=== PATIENT | female | born 1940 | race Caucasian/White ===

== ENCOUNTER → 2018-03-31 10:19 | Outpatient (CLI) | payer MEDICARE, SELFPAY ==
[2018-03-31 12:00] LABS: Absolute Lymphocyte Count 1.44 X10^3/ul (0.83-4.51); Absolute Neutrophil Count 2.7 X10^3/uL (2.0-7.7); Basophil# 0.02 X10^3/uL; Basophil% 0.4 % (0-1); Eosinophil# 0.04 X10^3/uL; Eosinophils% 0.9 % (0-5); Hematocrit 38.5 % (37-47); Hemoglobin 13.1 g/dl (12.0-15.0); Lymphocyte # 1.44 X10^3/ul (4.0); Lymphocyte % 31.3 % (19-41); Mean Corpuscular Hgb 32.7 pg (27.0-32.0); Mean Platelet Vol. 11.2 fl (6.2-12.0); Monocyte# 0.37 X10^3/uL; Neutrophil # 2.73 X10^3/uL (2.7-7.7); Neutrophil % 59.4 % (47-70); POSITIVE COUNT NO; POSITIVE DIFFERENTIAL NO; POSITIVE MORPHOLOGY NO; Platelet Count 228 K/mm3 (150-450); RBC Distribution Width SD 41.3 fl (35.1-43.9); Red Blood Count 4.01 M/mm3 (4.2-5.4); White Blood Count 4.6 K/mm3 (4.4-11.0)
[2018-03-31 12:16] LABS: Anion Gap 7 (5-15); BUN 14 mg/dL (7-18); BUN/Creat Ratio 16.2 RATIO (10-20); Calcium,Total 9.1 mg/dL (8.5-10.1); Chloride 106 mmol/L (98-107); Creatinine, Serum 0.87 mg/dL (0.55-1.02); EST Glomerular Filtration Rate 67 mL/min (>60); Est Glom Filt Rate - Afr Amer 82 mL/min (>60); Glucose 111 mg/dL (74-106); Magnesium 2.1 mg/dL (1.6-2.6); Potassium 3.8 mmol/L (3.5-5.1); Sodium Level 143 mmol/L (136-145)
[2018-03-31 22:38] LABS: Thyroid Stim Hormone (TSH) 3.75 uIU/mL (0.358-3.74)
== END ==
PROVIDERS: Family Provider Family Medicine; PCP Family Medicine; Visit Provider Family Medicine
DX: R25.2 Cramp and spasm (principal); E11.9 Type 2 diabetes mellitus without complications
CPT/HCPCS: 36415; 80048; 83735; 84443; 85025

== ENCOUNTER → 2018-12-08 17:16 | Outpatient (CLI) | payer MEDICARE, SELFPAY ==
--- NOTE | 2018-12-08 17:22 | RAD_ITS ---
STUDY: X-RAY - LUMBAR SPINE REASON FOR EXAM: Female, 78 years old. Pain TECHNIQUE: 5 view(s) of the lumbar spine were obtained. COMPARISON: None FINDINGS: Normal lumbar lordosis. There is no substantial scoliosis. There is a normal alignment of the vertebrae. Normal vertebral bodies. Mild spurring at the endplates. Normal disc space heights. The soft tissue structures are unremarkable. Calcified aorta. RAD/L/S Spine Min 4 Views IMPRESSION: Mild degenerative changes of the lumbar spine. Electronically Signed: German Smith DO at 18:50 EDT Tel [phone], Service support ,
--- NOTE | 2018-12-08 17:22 | RAD_ITS ---
STUDY: X-RAY - RIGHT KNEE REASON FOR EXAM: Female, 78 years old. Pain TECHNIQUE: 4 view(s) of the knee. COMPARISON: None. FINDINGS: Normal visualized distal femur. Normal visualized proximal tibia and fibula. Normal proximal tibiofibular articulation. Normal medial femorotibial compartment. Normal lateral femorotibial compartment. Normal patellofemoral articulation. The soft tissue structures are unremarkable. RAD/Knee 4 or More Views IMPRESSION: No acute bony injury of the knee. Electronically Signed: German Smith DO at 21:01 EDT Tel [phone], Service support ,
== END ==
PROVIDERS: Family Provider Family Medicine; PCP Family Medicine; Referring Provider Family Medicine; Visit Provider Family Medicine
DX: M54.31 Sciatica, right side (principal); M25.561 Pain in right knee
CPT/HCPCS: 72110; 73564

== ENCOUNTER → 2018-12-22 12:23 | Outpatient (CLI) | payer MEDICARE, SELFPAY ==
--- NOTE | 2018-12-22 12:28 | BD_ITS ---
STUDY: DUAL ENERGY X-RAY ABSORPTIOMETRY / DXA REASON FOR EXAM: Female, 78 years old. Early menopause. Loss of height. TECHNIQUE: Bone Mineral Density (BMD) measurements of lumbar spine and bilateral hips were obtained. COMPARISON: None. FINDINGS: Lumbar Spine (L1-L4): g/cm2 (0.988) / T-score (-1.5) / Z-score (0.3) Findings are suggestive of osteopenia with a low fracture risk. Left Femur Total: g/cm2 (0.822) / T-score (-1.5) / Z-score (0.4) Left Femoral Neck: g/cm2 (0.726) / T-score (-2.2) / Z-score (-0.2) Right Femur Total: g/cm2 (0.746) / T-score (-2.1) / Z-score (-0.2) Right Femoral Neck: g/cm2 (0.663) / T-score (-2.7) / Z-score (-0.7) BD/Dexa Bone Density Study IMPRESSION: The patient is considered osteoporotic as outlined below according to World Carlos Organization (WHO) criteria with a high fracture risk. Reference Information: The T-score is the number of standard deviations above or below the standard which is normal for young adults at their peak bone mineral density. The World Health Organization (WHO) interprets the T-scores as follows: Above -1 Normal bone density Between -1 and -2.5 Osteopenia Equal to / or below -2.5 Osteoporosis As a practical clinical guideline, osteopenia may be graded as follows: Mild -1 through -1.5 Moderate -1.6 through -2.0 Severe -2.1 through -2.4 The Z-score is the number of standard deviations above or below age-matched controls. A Z-score of less than -1.5 would be considered abnormal. References: 1. NIH Osteoporosis and Related Bone Diseases http://www.osteo.org 2. International Society for Clinical Densitometry http://www.iscd.org 3. National Osteoporosis Foundation http://www.nof.org Electronically Signed: Osei Burr, at 14:29 EDT , Service support ,
== END ==
PROVIDERS: Family Provider Family Medicine; PCP Family Medicine; Referring Provider Family Medicine; Visit Provider Family Medicine
DX: M81.0 Age-related osteoporosis without current pathological fracture (principal)
CPT/HCPCS: 77080

== ENCOUNTER → 2019-01-29 15:00 | Outpatient (CLI) | payer MEDICARE, SELFPAY ==
--- NOTE | 2019-01-29 15:06 | CT_ITS ---
STUDY: CT ABDOMEN AND PELVIS WITH CONTRAST REASON FOR EXAM: Female, 78 years old. RADIATION DOSAGE (If Supplied By Facility): CTDIvol = ( 12.86 ) mGy, DLP = ( 781.59 ) mGycm TECHNIQUE: Transaxial images were obtained from the dome of the diaphragm to the symphysis pubis without oral contrast. 100 IV Isovue 300 was administered. Sagittal and coronal images were reconstructed. Individualized dose optimization techniques were used for this CT. COMPARISON: None. FINDINGS: The liver is not enlarged with fatty infiltration when compared to the spleen. There is fat sparing in the right lobe. No focal lesion or abnormal enhancement identified. The spleen is not enlarged. The suprarenal glands are unremarkable so is the pancreas. Both kidneys are normal in size, shape and position but there is fullness of the left collecting system. There are few diverticula seen in the sigmoid however there is a thickening of the wall of the sigmoid that mandates direct visualization for better assessment. There is no evidence of periaortic lymphadenopathy seen. Atherosclerotic changes noted in the abdominal aorta and iliac vessels. In the pelvis the uterus is rather small in size with calcification. The visualized bony structures are intact. CT/Abdomen/Pelvis W IV Cont ONLY IMPRESSION: Fatty infiltration of the liver with fat sparing area in the center of the right lobe. Fullness of the collecting system on the left. Sigmoid diverticulosis Thickening of the wall of the proximal sigmoid that mandates direct visualization for better assessment. Electronically Signed: Andrzej Ayoub, at 16:13 EDT Tel , Service support ,
== END ==
PROVIDERS: Family Provider Family Medicine; PCP Family Medicine; Referring Provider Family Medicine; Visit Provider Family Medicine
DX: R10.32 Left lower quadrant pain (principal)
CPT/HCPCS: 74177; Q9967

== ENCOUNTER → 2019-02-01 09:59 | Outpatient (CLI) | payer MEDICARE, SELFPAY ==
[2019-02-01 09:24] VITALS: BMI 25.0
--- NOTE | 2019-02-01 10:09 | CT_ITS ---
STUDY: CT ABDOMEN AND PELVIS WITH CONTRAST REASON FOR EXAM: Female, 78 years old. RADIATION DOSAGE (If Supplied By Facility): CTDIvol = ( 9.27 ) mGy, DLP = ( 496.03 ) mGycm TECHNIQUE: Transaxial images were obtained from the dome of the diaphragm to the symphysis pubis without oral contrast. 100 IV/Oral Isovue 370 was administered. Sagittal and coronal images were reconstructed. Individualized dose optimization techniques were used for this CT. COMPARISON: January 29, 2019. FINDINGS: The previously described thickening of the sigmoid with diverticulosis again noted the with some enhancement that could be due to diverticulitis with some fat stranding in the region however probably patient needs colonoscopy in the future for better evaluation. As mentioned in the previous examination there is fatty infiltration of the liver with fat sparing area in the right lobe. The spleen is not enlarged with no focal lesion. The suprarenal glands and both kidneys are unremarkable except for fullness of the left renal pelvis . No periaortic lymphadenopathy seen in the pancreas and gallbladder are unremarkable. No free fluid or air or free air within the peritoneal cavity. Coronal CT/Abdomen/Pelvis WITH Contrast IMPRESSION: Thickening of the sigmoid with evidence of diverticulosis and possibility of diverticulitis cannot be ruled out. Also possibility of tumor cannot be excluded needs direct visualization Electronically Signed: Andrzej Ayoub, at 13:50 EDT Tel , Service support ,
[2019-02-01 11:21] LABS: Absolute Lymphocyte Count 0.48 X10^3/ul (0.83-4.51); Absolute Neutrophil Count 4.5 X10^3/uL (2.0-7.7); Basophil# 0.01 X10^3/uL; Basophil% 0.2 % (0-1); Eosinophil# 0.01 X10^3/uL; Eosinophils% 0.2 % (0-5); Hematocrit 37.7 % (37-47); Hemoglobin 13.1 g/dl (12.0-15.0); Lymphocyte # 0.48 X10^3/ul (4.0); Lymphocyte % 9.1 % (19-41); Mean Corp Hgb Conc 34.7 g/gl (32-36); Mean Platelet Vol. 10.3 fl (6.2-12.0); Monocyte# 0.33 X10^3/uL; Monocyte% 6.2 % (0-10); Neutrophil # 4.45 X10^3/uL (2.7-7.7); Neutrophil % 84.1 % (47-70); Platelet Count 243 K/mm3 (150-450); RBC Distribution Width CV 11.8 % (11.6-14.6); RBC Distribution Width SD 38.8 fl (35.1-43.9); White Blood Count 5.3 K/mm3 (4.4-11.0)
[2019-02-01 11:23] LABS: Differential Indicated SCAN CRITERIA MET; POSITIVE COUNT NO; POSITIVE DIFFERENTIAL YES; POSITIVE MORPHOLOGY NO
[2019-02-01] MEDS: 0.9% Normal Saline 1,000 ML 125 ML IV (11:27)
[2019-02-01 11:28] VITALS: BP 141/76; PULSE 90; RESP 14; O2SAT 93; BMI 24.2
[2019-02-01 11:29] LABS: Anion Gap 9 (5-15); BUN 13 mg/dL (7-18); BUN/Creat Ratio 10.4 RATIO (10-20); Calcium,Total 8.9 mg/dL (8.5-10.1); Chloride 100 mmol/L (98-107); Creatinine, Serum 1.25 mg/dL (0.55-1.02); EST Glomerular Filtration Rate 44 mL/min (>60); Est Glom Filt Rate - Afr Amer 53 mL/min (>60); Glucose 349 mg/dL (74-106); Potassium 3.7 mmol/L (3.5-5.1); Sodium Level 134 mmol/L (136-145)
== END ==
PROVIDERS: Family Provider Family Medicine; PCP Family Medicine; Referring Provider Family Medicine; Visit Provider Family Medicine
DX: K57.90 Diverticulosis of intestine, part unspecified, without perforation or abscess without bleeding (principal)
CPT/HCPCS: 74177; 80048; 83735; 85025; J7030; Q9967; A4216

== ENCOUNTER 2019-03-08 08:06 | Day surgery (SDC) | payer MEDICARE, SELFPAY ==
[2019-02-24 08:18] VITALS: BMI 24.2
--- NOTE | 2019-02-24 08:23 | HP_ITS ---
Intake Vital Signs 02/24/19 Body Mass Index (BMI) 24.2 02/19/19 Body Mass Index (BMI) 24.2 Intake Visit Reasons: diverticulitis f/u schedule cscope Chief Complaint: CT WITH LABS/IVF Allergies niacin Allergy (Unknown, Verified 02/23/19 10:45) Unknown pneumococcal vaccine [From Pneumovax 23] Allergy (Verified 02/23/19 10:45) Unknown [facility] Medical History Acid reflux (Acute) Blood in stool (Acute) Diarrhea (Acute) Nausea (Acute) Abdominal pain (Acute) SOB (shortness of breath) (Acute) Anxiety (Acute) Depression (Acute) Arthritis (Acute) Fatigue (Acute) Surgical History Hx of tonsillectomy (Acute) Hx of tubal ligation (Acute) Hx of cataract surgery (Acute) Family History Sister Diabetes Father Prostate cancer Social History (Updated 02/24/19 @ 08:23 by Latisha Sanchez MD) Smoking Status: Never smoker second hand exposure: No alcohol intake: never substance use type: does not use caffeine: Yes what type of physical activity do you participate in: none frequency: does not exercise seatbelt use: always HPI HPI HPI: ROWAN CANAS, is a 79 F who presents to the office today for HPI HPI Surgical H&P: Yes HPI: ROWAN CANAS, is a 79 F who presents to the office today for follow-up from her diverticulitis. Patient states she has no left lower quadrant pain she states she can get uncomfortable but that improves after having a bowel movement. Patient does state that she has smaller caliber stools which are soft more recently. Patient did complete her 10 days of Cipro and Flagyl. Patient states she is tolerating p.o. well denies any nausea or vomiting. However patient does states she has reflux which does go up to the esophagus daily she does not take any medication for this. Patient has never had a colonoscopy and no family history of colon cancer. Patient's previous CT abdomen pelvis was concern for her that it could be more than just diverticulitis going on in the sigmoid colon recommended a direct visualization. Pt did admit to a spot of blood on TP on friday but denies any further blood per rectum. ROS General General: Yes appetite; no fatigue Gastro Gastrointestinal: No abdominal pain, No nausea or vomiting, Yes blood in stool, Yes acid reflux, No hemorrhoids Exam Const General: cooperative, comfortable, no acute distress Resp Effort & Inspection: normal respiratory effort Cardio Rate: regular rate GI Inspection: non-distended Palpation: soft, no guarding, nontender Psych Affect: normal affect Assessment & Plan Problems 1. Diverticulitis K57.92 2. Change in stool caliber R19.5 Plan I have discussed the above with the patient. Also discussed with patient that if there is a stricture at the sigmoid I am unable to pass it would not be able to complete the scope and would withdraw the scope. I have offered the patient colonoscopy for evaluation. I have explained the risks/benefits of the procedure and described the procedure. I have discussed the risks with the patient, including but not limited to: infection, bleeding, perforation of the GI tract requiring emergency surgery, inability to complete the procedure, injury to any internal organs, complications of anesthesia, etc. - the patient understands and agrees to proceed. I have answered all the patient's questions to the patient's satisfaction and the patient has no further questions. The patient has been given instructions for the colon cleansing preparation. 2 days of clears, MiraLAX Dulcolax split prep. Latisha Sanchez M.D. Pager: [phone] [facility] [address] [place] [address], [address] [place] [address] Office: [phone] Plan Detail Follow Up We will schedule colonoscopy Coding Level of Care Code Off vis,est,level 3 Diagnoses Diverticulitis K57.92 Change in stool caliber R19.5 02/24/19 0823 <Electronically signed by Latisha Amaya am, MD> Date _ Latisha Sanchez MD I have examined the patient the following changes are noted: Patient denies any pain in the left side of her abdomen, patient states prep went well and was clear liquid stool. Patient does state some tenderness if palpated on the left side but denies pain. Patient rates that tenderness as 2/10 when palpated but denies any pain if the abdomen is not palpated.
[2019-03-08] VITALS (7 sets, daily range): BP systolic 162–189; BP diastolic 80–92; PULSE 62–69; RESP 15–18; TEMP 36–36.4; O2SAT 98–100; BMI 23.6
--- NOTE | 2019-03-08 | COLBX_PTH ---
PATIENT: ROWAN CANAS LOC: EN U#:[id number] AGE/SX: 79/F ROOM: RE03/08/[address]: Dr. Latisha Sanchez MD : 1940 BED: DIS: 03/08/2019 SPEC #: [id number] RECD: 03/08/19 13:30 STATUS: LES SANA #: [id number] VALERIE: 03/08/19 00:[address]: Latisha Sanchez DEPT: SURGICAL PATHOLOGY RECD BY: Enrique Esparza ENTERED: 03/08/19 13:31 SP TYPE: COLON BX OTHR DR: Dr. Silvestre Jeong MD Tissues: A - Ascending colon B - Ascending colon C - Transverse colon D - Descending colon E - Sigmoid colon biopsy F - Sigmoid colon biopsy G - Rectum, NOS H - Rectum, NOS Procedures: Surgery Specimen Level IV HEADER OPERATION: Colonoscopy (MAC) PRE-OP DIAGNOSIS: Diverticulitis, change in stool TISSUE SUBMITTED: A - Biopsy of ascending colon erosion, B - Biopsy of distal ascending polyp, C - Biopsy of transverse erosion, D - Biopsy of descending erosion, E - Biopsy of sigmoid polyp, F - Erosion area of sigmoid, G - Biopsy of rectum polyp, H - Biopsy of rectal erosion MICROSCOPIC DIAGNOSIS A. Ascending colon erosion, biopsy: Focal acute colitis. See microscopic description and comment. B. Distal ascending polyp, biopsy: Focal acute colitis. See microscopic description and comment. C. Transverse colon erosion, biopsy: Focal acute colitis. See microscopic description and comment. D. Descending colon erosion, biopsy: Focal acute colitis. See microscopic description and comment. E. Sigmoid polyp, biopsy: Hyperplastic polyp. F. Erosion area sigmoid colon, biopsy: Focal acute colitis. See microscopic description and comment. G. Rectum polyp, biopsy: Fragments of hyperplastic polyp. H. Rectal erosion, biopsy: Focal acute colitis. See microscopic description and comment. SJ:pennie 03/09/19 COMMENT Finding of focal acute colitis can be associated with self-limited colitis, infectious colitis, or rarely inflammatory bowel disease. Correlation with clinical, endoscopic findings and appropriate follow up are necessary. MICROSCOPIC DESCRIPTION Slides are reviewed. A, C, D & H - Specimens show similar morphologic features. Specimens show fragments of colonic mucosa with acute and chronic inflammatory cells infiltrates in the lamina propria, cryptitis and crypt abscesses. Glandular distortion or granulomas are not seen. Specimen D also shows superficial erosion. B - The specimen shows fragments of colonic mucosa with acute and chronic inflammatory cells infiltrates in the lamina propria and cryptitis. Crypt abscesses, glandular distortion or granuloma are not seen. F - The specimen shows a fragment of colonic mucosa with superficial erosion, associated acute inflammation, acute and chronic inflammatory cell infiltrate in the lamina propria. Cryptitis, crypt abscesses, glandular distortion or granuloma are not seen. GROSS DESCRIPTION A - Received in fixative is one container labeled with the patient's name and designated ascending colon biopsy. The specimen consists of one irregular fragment of light stallings soft tissue that measures 0.4 x 0.4 x 0.1 cm. The specimen is totally submitted in one cassette. B - Received in fixative is one container labeled with the patient's name and designated biopsy of distal ascending polyp. The specimen consists of multiple irregular fragments of light stallings soft tissue that in aggregate measure 1 x 1 x 0.1 cm. The specimen is totally submitted in one cassette. C - Received in fixative is one container labeled with the patient's name and designated transverse erosion biopsy. The specimen consists of one irregular fragment of light stallings soft tissue that measures 0.4 x 0.3 x 0.1 cm. The specimen is totally submitted in one cassette. D - Received in fixative is one container labeled with the patient's name and designated descending erosion biopsy. The specimen consists of one irregular fragment of light stallings soft tissue that measures 0.3 x 0.3 x 0.1 cm. The specimen is totally submitted in one cassette. E - Received in fixative is one container labeled with the patient's name and designated biopsy of sigmoid polyp. The specimen consists of one irregular fragment of light stallings soft tissue that measures 0.4 x 0.3 x 0.1 cm. The specimen is totally submitted in one cassette. F - Received in fixative is one container labeled with the patient's name and designated erosion area of sigmoid. The specimen consists of one irregular fragment of light stallings soft tissue that measures 0.5 x 0.3 x 0.1 cm. The specimen is totally submitted in one cassette. G - Received in fixative is one container labeled with the patient's name and designated biopsy of rectum polyp. The specimen consists of multiple irregular fragments of light stallings soft tissue that in aggregate measure 1 x 0.3 x 0.1 cm. The specimen is totally submitted in one cassette. H - Received in fixative is one container labeled with the patient's name and designated biopsy of rectal erosion. The specimen consists of one irregular fragment of light stallings soft tissue that measures 0.4 x 0.3 x 0.1 cm. The specimen is totally submitted in one cassette. / HINA:elton 03/08/19 TC: 2 CPT: 77668 x8
[2019-03-08 08:46] LABS: Bedside Glucose 148 mg/dL (70-110)
--- NOTE | 2019-03-08 09:45 | OP.ENDO_ITS ---
03/08/2019 Silvestre Jeong Re : Colonoscopy procedure for Petra Del Valle Dear Jean-Paul This procedure was performed on Friday, March 08, 2019. My impressions and recommendations are as follows: Impressions : - Diverticulosis in the sigmoid colon. - Small mucosal ulcerations-worse in left colon. Biopsied. - Three less than 5 mm polyps in the rectum, in the sigmoid colon and in the distal ascending colon, removed with a cold biopsy forceps. Resected and retrieved. Recommendations : - Discharge patient to home. - Resume previous diet. - Continue present medications. - Await pathology results. - Repeat colonoscopy is not recommended due to current age (66 years or older) for screening purposes. My findings are described in the full procedure note, which is enclosed. If I can be of further assistance, please feel free to contact me at Doctor phone number(s): , Work: . Sincerely, MD Latisha Carrion MD 03/08/2019 9:45:16 AM This report has been signed electronically.
== END 2019-03-08 10:43 | disposition home or self-care (01) ==
LOC: EN 08:07 → AC 08:08
PROVIDERS: Family Provider Family Medicine; PCP Family Medicine; Referring Provider Surgery; Visit Provider Surgery
PROC: 0DJD8ZZ Inspection of Lower Intestinal Tract, Via Natural or Artificial Opening Endoscopic (ICD-10-PCS; CPT 45378; principal; 2019-03-08 09:10)
DX: K57.32 Diverticulitis of large intestine without perforation or abscess without bleeding (principal); K62.89 Other specified diseases of anus and rectum; R19.5 Other fecal abnormalities; K21.9 Gastro-esophageal reflux disease without esophagitis; K63.3 Ulcer of intestine; K62.1 Rectal polyp; D12.5 Benign neoplasm of sigmoid colon; D12.2 Benign neoplasm of ascending colon; K57.30 Diverticulosis of large intestine without perforation or abscess without bleeding; R93.3 Abnormal findings on diagnostic imaging of other parts of digestive tract; E11.9 Type 2 diabetes mellitus without complications
CPT/HCPCS: 45380; 82962; 88305; J7120

== ENCOUNTER → 2019-03-10 14:28 | Outpatient (CLI) | payer MEDICARE, SELFPAY ==
[2019-03-08 08:25] VITALS: BMI 23.6
== END ==
PROVIDERS: Family Provider Family Medicine; PCP Family Medicine; Referring Provider Surgery; Visit Provider Surgery
DX: R19.7 Diarrhea, unspecified (principal); Z87.19 Personal history of other diseases of the digestive system
CPT/HCPCS: 83630; 87493

== ENCOUNTER → 2019-07-06 10:56 | Outpatient (CLI) | payer MEDICARE, SELFPAY ==
[2019-03-22 09:29] VITALS: BMI 23.6
[2019-07-06 13:07] LABS: Anion Gap 8 (5-15); BUN 12 mg/dL (7-18); BUN/Creat Ratio 11.1 RATIO (10-20); Calcium,Total 8.7 mg/dL (8.5-10.1); Chloride 106 mmol/L (98-107); Creatinine, Serum 1.08 mg/dL (0.55-1.02); EST Glomerular Filtration Rate 52 mL/min (>60); Est Glom Filt Rate - Afr Amer 63 mL/min (>60); Glucose 265 mg/dL (74-106); Potassium 3.9 mmol/L (3.5-5.1); Sodium Level 140 mmol/L (136-145)
== END ==
PROVIDERS: Family Provider Family Medicine; PCP Family Medicine; Visit Provider Family Medicine
DX: E11.9 Type 2 diabetes mellitus without complications (principal)
CPT/HCPCS: 36415; 80048

== ENCOUNTER → 2022-10-15 | Outpatient (CLI) | payer MEDICARE, SELFPAY ==
[2022-10-15 10:18] LABS: Absolute Lymphocyte Count 2.01 X10^3/uL (0.83-4.51); Absolute Neutrophil Count 3.4 X10^3/uL (2.0-7.7); Basophil# 0.04 X10^3/uL; Basophil% 0.7 % (0-1); Eosinophil# 0.09 X10^3/uL; Eosinophils% 1.5 % (0-5); Hemoglobin 14.5 g/dL (12.0-15.0); Lymphocyte # 2.01 X10^3/ul (0.83-4.51); Lymphocyte % 34.1 % (19-41); Mean Corp Hgb Conc 34.5 g/dL (32-36); Mean Corpuscular Hgb 32.5 pg (27.0-32.0); Mean Corpuscular Volume 94.2 fL (81-99); Mean Platelet Vol. 11.2 fl (6.2-12.0); Monocyte# 0.39 X10^3/uL; Monocyte% 6.6 % (0-10); NRBC Flagged by Analyzer 0 % (0-5); Neutrophil # 3.36 X10^3/uL (2.7-7.7); Neutrophil % 56.9 % (47-70); Platelet Count 228 K/mm3 (150-450); RBC Distribution Width CV 12.3 % (11.6-14.6); RBC Distribution Width SD 42.9 fl (35.1-43.9); Red Blood Count 4.46 M/mm3 (4.2-5.4); White Blood Count 5.9 K/mm3 (4.4-11.0)
[2022-10-15 10:44] LABS: Vitamin D,25 Hydroxy 26.1 ng/mL
[2022-10-15 10:55] LABS: AST(SGOT) 15 U/L (15-37); Alanine Aminotransfer ALT/SGPT 24 U/L (13-56); Albumin, Serum 3.6 g/dL (3.2-5.0); Alkaline Phosphatase 124 U/L (45-117); Anion Gap 8 (5-15); BUN 16 mg/dL (7-18); BUN/Creat Ratio 18.6 RATIO (10-20); Calcium,Total 9.1 mg/dL (8.5-10.1); Chloride 103 mmol/L (98-107); Cholesterol 264 mg/dL (200); Creatinine, Serum 0.86 mg/dL (0.55-1.02); EST Glomerular Filtration Rate 67 mL/min (>60); Est Glom Filt Rate - Afr Amer 81 mL/min (>60); Globulin 3.5 g/dL (2.2-4.2); Glucose 284 mg/dL (74-106); High Density Lipoprotein 81 mg/dL; Protein, Total 7.1 g/dL (6.4-8.2); Sodium Level 138 mmol/L (136-145); Thyroid Stim Hormone (TSH) 5.44 uIU/mL (0.358-3.74); Triglycerides 164 mg/dL; Very Low Density Lipoprotein 33 mg/dL (5-40)
== END | disposition home or self-care (01) ==
LOC: LAB 09:53
PROVIDERS: PCP Internal Medicine; Referring Provider Internal Medicine; Visit Provider Internal Medicine
DX: R53.83 Other fatigue (principal); E11.9 Type 2 diabetes mellitus without complications; F41.9 Anxiety disorder, unspecified; F32.9 Major depressive disorder, single episode, unspecified; M19.90 Unspecified osteoarthritis, unspecified site; Z13.220 Encounter for screening for lipoid disorders; E55.9 Vitamin D deficiency, unspecified
CPT/HCPCS: 80053; 80061; 82306; 83036; 84443; 85025

== ENCOUNTER → 2023-08-13 | Outpatient (CLI) | payer MEDICARE, SELFPAY ==
[2023-08-13 11:18] LABS: Absolute Lymphocyte Count 1.45 X10^3/uL (0.83-4.51); Absolute Neutrophil Count 3.3 X10^3/uL (2.0-7.7); Basophil# 0.04 X10^3/uL; Basophil% 0.8 % (0-1); Eosinophil# 0.05 X10^3/uL; Hemoglobin 13.7 g/dL (12.0-15.0); Lymphocyte # 1.45 X10^3/ul (0.83-4.51); Lymphocyte % 27.7 % (19-41); Mean Corp Hgb Conc 33.4 g/dL (32-36); Mean Corpuscular Hgb 32.1 pg (27.0-32.0); Mean Platelet Vol. 10.4 fl (6.2-12.0); Monocyte# 0.36 X10^3/uL; Monocyte% 6.9 % (0-10); NRBC Flagged by Analyzer 0 % (0-5); Neutrophil # 3.31 X10^3/uL (2.7-7.7); Neutrophil % 63.2 % (47-70); Platelet Count 263 K/mm3 (150-450); RBC Distribution Width CV 12.2 % (11.6-14.6); RBC Distribution Width SD 42.9 fl (35.1-43.9); Red Blood Count 4.27 M/mm3 (4.2-5.4); White Blood Count 5.2 K/mm3 (4.4-11.0)
[2023-08-13 11:50] LABS: Vitamin D,25 Hydroxy 44.6 ng/mL
[2023-08-13 12:00] LABS: ALB/GLOB Ratio 1.1 RATIO (0.9-2.4); AST(SGOT) 19 U/L (15-37); Alanine Aminotransfer ALT/SGPT 23 U/L (13-56); Albumin, Serum 3.8 g/dL (3.2-5.0); Alkaline Phosphatase 96 U/L (45-117); Anion Gap 8 (5-15); BUN 16 mg/dL (7-18); BUN/Creat Ratio 19.3 RATIO (10-20); Calcium,Total 8.7 mg/dL (8.5-10.1); Chloride 108 mmol/L (98-107); Creatinine, Serum 0.83 mg/dL (0.55-1.02); EST Glomerular Filtration Rate 70 mL/min (>60); Est Glom Filt Rate - Afr Amer 85 mL/min (>60); Free T3 2.3 pg/mL (2.18-3.98); Globulin 3.5 g/dL (2.2-4.2); Glucose 156 mg/dL (74-106); Potassium 4.1 mmol/L (3.5-5.1); Protein, Total 7.3 g/dL (6.4-8.2); Sodium Level 143 mmol/L (136-145); T4 Free Direct 0.86 ng/dL (0.76-1.46); Thyroid Stim Hormone (TSH) 3.72 uIU/mL (0.358-3.74)
== END | disposition home or self-care (01) ==
PROVIDERS: PCP Internal Medicine; Referring Provider Internal Medicine; Visit Provider Internal Medicine
DX: E11.9 Type 2 diabetes mellitus without complications (principal); R55 Syncope and collapse; R79.89 Other specified abnormal findings of blood chemistry; R53.83 Other fatigue; E55.9 Vitamin D deficiency, unspecified
CPT/HCPCS: 36415; 80053; 82306; 83036; 84439; 84443; 84481; 85025

== ENCOUNTER → 2023-08-29 | Outpatient (CLI) | payer MEDICARE, SELFPAY ==
--- NOTE | 2023-08-29 11:11 | MRI_ITS ---
STUDY: MRI BRAIN WITH AND WITHOUT CONTRAST REASON FOR EXAM: Female, 83 years old. tia, black out, LIGHT HEADEDNESS TECHNIQUE: Standardized multiplanar fat and water weighted pulse sequences were obtained. IV 13 CC CLARISCAN was administered for the contrast portion of the examination. COMPARISON: None. FINDINGS: There is mild cerebral atrophy with widening of the extra-axial spaces and ventricular dilatation. There are a limited number of small white matter hyperintensities, distributed throughout the deep white matter tracts of the cerebral hemispheres, consistent with mild chronic white matter ischemic changes. There is no evidence for recent intracranial ischemia or other cause of cytotoxic edema on diffusion weighted imaging (DWI). Normal T2* images of the brain without demonstrated susceptibility artifact. There is no demonstrated hemosiderin stain. Normal bilateral frontal poles, and orbital frontal and gyrus recti of the frontal lobes. Normal bilateral temporal tips of the temporal lobes. There are no white matter shear injuries (diffuse axonal injuries). There are no parenchymal hemorrhages or hematomas. There are no findings to suggest prior closed head parenchymal injury of the brain. No hydrocephalus or midline shift is present. No infiltrative process or vasogenic edema is seen. There are no ring-enhancing lesions or abnormal thickening or enhancement of the meninges or dura. No skull lesions are seen. Normal bilateral basal ganglia. Normal thalami. There is no extra-axial fluid accumulation. Normal flow voids within the major intracranial circulation suggesting patency by spin echo criteria. Normal venous enhancement. There is no enhancing intra-axial or extra-axial abnormality. Normal sella turcica, pituitary gland, infundibular stalk, optic chiasm and hypothalamus. Normal tectal plate and pineal gland. Normal midbrain, karan and medulla. Normal cerebellum. Normal basal cisterns. Normal bilateral temporal bones. Normal bilateral internal auditory canals. No demonstrated orbital abnormality, within the constraints of a routine brain study. Normal visualized paranasal sinuses. Normal calvarium and skull base. Normal visualized soft tissue structures. Normal visualized upper cervical spine. MRI/Brain W/WO Contrast IMPRESSION: 1. Involutional changes of the brain, as described above. 2. No hydrocephalus or midline shift is present. No infiltrative process or vasogenic edema is seen. There are no ring-enhancing lesions or abnormal thickening or enhancement of the meninges or dura. No skull lesions are seen. Electronically Signed: Jaspreet Eisenberg MD at 13:56 EST ,
--- NOTE | 2023-08-29 11:11 | MRI_ITS ---
STUDY: MRA OF THE HEAD WITHOUT CONTRAST REASON FOR EXAM: Female, 83 years old. TIA/black out TECHNIQUE: 3-D [id number] (TOF) imaging was performed with MIPs. The study was performed unenhanced. COMPARISON: MRI of the brain dated August 29, 2023 FINDINGS: Normal bilateral petrous carotid arteries. Normal right cavernous carotid artery with a normal supraclinoid bifurcation. Normal left cavernous carotid artery with a normal supraclinoid bifurcation. Normal right A1 segments of the anterior cerebral artery. Normal left A1 segments of the anterior cerebral artery. Normal intact anterior communicating artery (ACOM). Normal bilateral A2 segments of the anterior cerebral arteries. Normal right M1 and M2 segments of the middle cerebral arteries, with a normal M1 bifurcation. Normal left M1 and M2 segments of the middle cerebral arteries, with a normal M1 bifurcation. Normal right posterior communicating artery (PCOM). Normal left posterior communicating artery (PCOM). Normal bilateral vertebral arteries. Normal basilar artery with a normal basilar bifurcation. The visualized bilateral superior cerebellar (SCA) arteries are normal. Normal bilateral P1, P2 and visualized P3 segments of the posterior cerebral arteries. There is no demonstrated aneurysm of the [place] of [place]. There is no major vessel occlusion or hemodynamically significant stenosis. MRI/MRA Head ONLY without Contrast IMPRESSION: 1. There is no demonstrated aneurysm of the [place] of [place]. There is no major vessel occlusion or hemodynamically significant stenosis. Electronically Signed: Jaspreet Eisenberg MD at 14:03 EST ,
--- OUTSIDE RECORDS SUMMARY | 2023-08-29 11:25 | XMS RPT_ITS | CCD ---
Author Name Unknown Address [address] [place] [address] Organization [facility] Care Team Providers Care Condominium Manager Name Role Phone ASHER HERNÁNDEZ MD Primary Care Physician [phone] KIANA ZEPEDA, DEMETRA Attending Unavailable ASHER HERNÁNDEZ Primary Care Unavailable Allergies Allergy Classification Reported Allergen(s) Allergy Type Date of Onset Reaction(s) Facility (1 source) Niacin; Translations: [niacin] Drug Allergy [facility] Medications Current Medications Medication Drug Class(es) Dates Sig (Normalized) Sig (Original) albuterol MDI (90 mcg/inh) CFC free inhalation aerosol (1 source) Start: 08-22-2022 take 2 puff(s) by inhalation every six hours albuterol MDI (90 mcg/inh) CFC free inhalation aerosol 2 puff(s), Inhalation, q6h, # 8.5 gram(s), 0 Refill(s) Start Date: 08/22/22 Status: Ordered benzonatate 100 mg oral capsule (1 source) Non-narcotic Antitussive Start: 08-22-2022 End: 08-29-2022 Tessalon Perles 100 mg oral capsule Dose : 100 mg = 1 cap(s), Oral, TID, X 7 day(s), # 21 cap(s), 0 Refill(s), 08/29/22 20:37:00 EST Start Date: 08/22/22 Stop Date: 08/29/22 Status: Ordered Results Test Name Value Interpretation Reference Range Facil ity Vital Signs Date Time Vital Sign Value Performing Clinician Faci lity 08-22-2022 19:00-0500 Body temperature 99.68 [degF] DEMETRA BRUNO MD [facility] 08-22-2022 19:00-0500 Diastolic Blood Pressure Non-Invasive 85 1 DEMETRA BRUNO MD [facility] 08-22-2022 19:00-0500 Heart rate 89 /min DEMETRA BRUNO MD [facility] 08-22-2022 19:00-0500 Respiratory rate 16 /min DEMETRA BRUNO MD [facility] 08-22-2022 19:00-0500 Systolic Blood Pressure Non-Invasive 135 1 DEMETRA BRUNO MD [facility] Encounters Encounter Date Encounter Type Care Provider Facility Start: 08-22-2022 End: 08-22-2022 Emergency department patient visit DEMETRA BRUNO MD Facility:B Start: 08-22-2022 End: 08-22-2022 Emergency department patient visit DEMETRA BRUNO MD [facility] Payers Date Payer Category Payer Unknown [id number] 1940 Unknown [id number] Social History Date Type Detail Facility Tobacco smoking status No Smoking Status Entered [facility] Sex Assigned At Female [facility] Functional Status Date Assessment Result Facility 08-22-2022 Functional Status Independent [facility] 08-22-2022 Functional Status Room located n [facility] Hospital Discharge instructions 08-22-2022 Note Date & Type Note Facility 08-22-2022 Hospital Discharg e instructions Patient Education 08/22/2022 20:36:59 URI, Viral, No Abx (Adult) Viral Upper Respiratory Illness (Adult) You have a viral upper respiratory illness (URI), which is another term for the common cold. This illness is contagious during the first few days. It is spread through the air by coughing and sneezing. It may also be spread by direct contact (touching the sick person and then touching your own eyes, nose, or mouth). Frequent handwashing will decrease risk of spread. Most viral illnesses go away within 7 to 10 days with rest and simple home remedies. Sometimes the illness may last for several weeks. Antibiotics will not kill a virus, and they are generally not prescribed for this condition. Home care If symptoms are severe, rest at home for the first 2 to 3 days. When you resume activity, don't let yourself get too tired. Don't smoke. If you need help stopping, talk with your healthcare provider. Avoid being exposed to cigarette smoke (yours or others ). You may use acetaminophen or ibuprofen to control pain and fever, unless another medicine was prescribed. If you have chronic liver or kidney disease, have ever had a stomach ulcer or gastrointestinal bleeding, or are taking blood-thinning medicines, talk with your healthcare provider before using these medicines. Aspirin should never be given to anyone under 18 years of age who is ill with a viral infection or fever. It may cause severe liver or brain damage. Your appetite may be poor, so a light diet is fine. Stay well hydrated by drinking 6 to 8 glasses of fluids per day (water, soft drinks, juices, tea, or soup). Extra fluids will help loosen secretions in the nose and lungs. Mtea-dmm-rumixnr cold medicines will not shorten the length of time you re sick, but they may be helpful for the following symptoms: cough, sore throat, and nasal and sinus congestion. If you take prescription medicines, ask your healthcare provider or pharmacist which igqo-amw-cujdprm medicines are safe to use. (Note: Don't use decongestants if you have high blood pressure.) Follow-up care Follow up with your healthcare provider, or as advised. When to seek medical advice Call your healthcare provider right away if any of these occur: Cough with lots of colored sputum (mucus) Severe headache; face, neck, or ear pain Difficulty swallowing due to throat pain Fever of 100.4 F (38 C) or higher, or as directed by your healthcare provider Call 911 Call 911 if any of these occur: Chest pain, shortness of breath, wheezing, or difficulty breathing Coughing up blood Very severe pain with swallowing, especially if it goes along with a muffled voice [id number] [employer]. [address] [place] [address], [place] [address]. All rights reserved. This information is not intended as a substitute for professional medical care. Always follow your healthcare professional's instructions. Follow Up Care 08/22/2022 18:59:35 With:ASHER HERNÁNDEZ Address: [address] [place] [phone] Business (1) When:3-7 days Comments:Schedule appointment for follow-up if your symptoms or not improving.Push fluids.Use a vaporizer at bedside.Use Tylenol or Advil for fever and discomfort as needed.Use sqmr-sum-gdnoyjd decongestants like Sudafed or Mucinex for symptomatic relief as needed.Use Tessalon as prescribed for cough and albuterol inhaler for shortness of breath/wheezing as needed.Return to the ED if symptoms worsen. [facility] Clinical Note 08-22-2022 Note Date & Type Note Facility 08-22-2022 Note Discharge Instructions Thank you for allowing [facility] to assist you with your healthcare needs. The following is important discharge information regarding your hospital visit. Diagnosis from Today's Visit Sinus Pain/Congestion What to Do Next Instructions from Your Care Team No qualifying data available. Post Acute Orders No qualifying data available. You Need to Schedule the Following Appointments Follow Up with ASHER HERNÁNDEZ When Within 3-7 days Why: Schedule appointment for follow-up if your symptoms or not improving. Push fluids. Use a vaporizer at bedside. Use Tylenol or Advil for fever and discomfort as needed. Use apuf-tjw-dvrdrgk decongestants like Sudafed or Mucinex for symptomatic relief as needed. Use Tessalon as prescribed for cough and albuterol inhaler for shortness of breath/wheezing as needed. Return to the ED if symptoms worsen. Where: [facility] [place] [address] [phone] Business (1) Allergies niacin Medications Please ask your primary doctor or pharmacist before taking any other medication not listed, including over the counter drugs, herbal medications, vitamins and or supplements as they may interact with your home medications. What How Much When Instructions Last Dose New albuterol (albuterol MDI (90 mcg/ inh) CFC free inhalation aerosol) 2 puff(s) by inhalation Every 6 hours Printed Prescription New benzonatate (Tessalon Perles 100 mg oral capsule) 1 cap by mouth Three (3) times a day Duration: 7 Days Printed Prescription Please take this list to your next doctor s visit. Bring all medications you take, including over the counter medications, herbals and other supplements with you to your doctor s visit. Patients and families are reminded to discard old lists and to update any records with all medication providers or retail pharmacies. Education Materials Viral Upper Respiratory Illness (Adult) You have a viral upper respiratory illness (URI), which is another term for the common cold. This illness is contagious during the first few days. It is spread through the air by coughing and sneezing. It may also be spread by direct contact (touching the sick person and then touching your own eyes, nose, or mouth). Frequent handwashing will decrease risk of spread. Most viral illnesses go away within 7 to 10 days with rest and simple home remedies. Sometimes the illness may last for several weeks. Antibiotics will not kill a virus, and they are generally not prescribed for this condition. Home care If symptoms are severe, rest at home for the first 2 to 3 days. When you resume activity, don't let yourself get too tired. Don't smoke. If you need help stopping, talk with your healthcare provider. Avoid being exposed to cigarette smoke (yours or others ). You may use acetaminophen or ibuprofen to control pain and fever, unless another medicine was prescribed. If you have chronic liver or kidney disease, have ever had a stomach ulcer or gastrointestinal bleeding, or are taking blood-thinning medicines, talk with your healthcare provider before using these medicines. Aspirin should never be given to anyone under 18 years of age who is ill with a viral infection or fever. It may cause severe liver or brain damage. Your appetite may be poor, so a light diet is fine. Stay well hydrated by drinking 6 to 8 glasses of fluids per day (water, soft drinks, juices, tea, or soup). Extra fluids will help loosen secretions in the nose and lungs. Ejqp-suz-tczwrqe cold medicines will not shorten the length of time you re sick, but they may be helpful for the following symptoms: cough, sore throat, and nasal and sinus congestion. If you take prescription medicines, ask your healthcare provider or pharmacist which gghg-qqx-cfkwwms medicines are safe to use. (Note: Don't use decongestants if you have high blood pressure.) Follow-up care Follow up with your healthcare provider, or as advised. When to seek medical advice Call your healthcare provider right away if any of these occur: Cough with lots of colored sputum (mucus) Severe headache; face, neck, or ear pain Difficulty swallowing due to throat pain Fever of 100.4 F (38 C) or higher, or as directed by your healthcare provider Call 911 Call 911 if any of these occur: Chest pain, shortness of breath, wheezing, or difficulty breathing Coughing up blood Very severe pain with swallowing, especially if it goes along with a muffled voice [phone] [employer]. [address] [place] [address]. All rights reserved. This information is not intended as a substitute for professional medical care. Always follow your healthcare professional's instructions. Additional Information VACCINATE! IT SAVES LIVES! Members of the community who have not yet received the COVID-19 vaccine and would like to receive it can visit one of [facility] vaccine clinics. There are many vaccine clinic locations within the [facility]. For locations and available times, please visit [email or web address]. It is important to note that some COVID mobile vaccine clinics are held outdoors and may be canceled in rainy or stormy conditions. To learn more about pediatric vaccinations (ages 5-11), we invite you to visit the [facility] webpage. [email or web address]/[email or web address]-[email or web address]-Hoskthxlgvd-Frequently-[email or web address] -Questions.html To learn more about the COVID-19 vaccine, we invite you to visit the [employer] website for a list of frequently asked questions. [email or web address].[email or web address]/assets/Patients-[email or web address] d-[email or web address]/wwmfe-[email or web address]-Mpgbzzotfu_Ne [email or web address]-Questions.pdf [employer] Patient Portal Access Instructions: Stay connected with your healthcare team and access your personal medical information anytime with the [employer] Patient Portal. If you would like a full copy of your medical records please contact the [facility] Medical Records Department Friday through Friday between 8a.m. and 4:30p.m. Please follow the directions below to access the portal: 1.Access the email account you provided upon registration to the [facility].2.Look for an invitation email from [facility].3.Open the email and access the invitation link: Accept Invitation to [email or web address].Fill in the required walton to create your account. Sign into [email or web address] with your username and password that you created in the above steps to stay up to date. You can then view a summary of results, a summary of your visits, and the ability to download your summaries to your computer or send the information securely to a physician. Remember that your healthcare information is confidential, so carefully consider who you will allow to register on the [facility] [employer] Patient Portal for access to your information. You can also access the [email or web address] Patient Portal on the [employer] gris. Simply click on Health Records under Health Data and then click on the [facility] logo. HOW TO SAFELY DISPOSE OF PRESCRIPTION MEDICATIONS Please use one of the following methods to safely dispose of your unused medications. 1.Use a drug disposal kit: the drug disposal pouch allows you to safely discard your old and unused drugs. Ask your nurse to give you one when you are discharged.2.Visit a local take-back location: Many local pharmacies and police departments have programs that collect old and unwanted prescription drugs. Call your local pharmacy or go to http://Ginger.io.[facility] [facility]/8L3Db9c to find one close to you.3.Make use of household items: Use cat litter or old coffee grounds to dispose medications if other options are not available. Mix your drugs with these household products, seal them in an airtight container and throw it into the garbage. Call [facility]: [phone] to be sure your drugs can be disposed of in this way. Some medicines may require a different approach.4.Never flush your medications down the toilet. IF YOU HAVE BEEN PRESCRIBED AN OPIOIDS FOR PAIN If you have been prescribed an opioid (such as hydrocodone, oxycodone or morphine), it is critical to understand the possible side effects and risks of opioid pain medications. Even when taken as directed, opioids can have several side effects including: Tolerance, meaning you might need to take more of a medication for the same pain relief. Nausea, vomiting and/or constipation. Sleepiness, dizziness, dry mouth, confusion, depression or itching. Physical dependence, meaning you have withdrawal symptoms when a medication is stopped ? this can develop within a few days. KNOW YOUR RESPONSIBILITIES It is important to know exactly how much and how often to take the opioid pain medications you are prescribed. Never take opioids in higher amounts or more often than prescribed. Do not combine opioids with alcohol or other drugs that cause drowsiness, such as benzodiazepines, also known as benzos, including diazepam and alprazolam, muscle relaxants or sleep aids. Never sell or share prescription opioids. This is illegal. Store opioids in a secure place and out of reach of others (including children, family, friends and visitors). The last page(s) of this document has been signed and retained as a CHART COPY Signatures Patient Education Materials URI, Viral, No Abx (Adult) Medication Leaflets My discharge plan and instructions have been reviewed and explained to me and I,ROWAN CANAS understand my current condition and have read and understand these discharge instructions. I have received a written copy of the plan/instructions. If I have questions, I am aware that I should contact my doctor. Patient/Nurse Infection Control Signature: _ Date/Time: Relationship to Patient: Witness Name/Signature: Date/Time: [facility] Clinical Note 08-22-2022 Note Date & Type Note Facility 08-22-2022 Note ORIGINAL EXAMINATION: ONE XRAY VIEW OF THE CHEST08/22/2022 8:02 pm COMPARISON: None. HISTORY: ORDERING SYSTEM PROVIDED HISTORY: Reason for Exam: Cough x3 weeks FINDINGS: The cardiomediastinal contours are normal. Calcified granuloma seen in the right upper lung. Vascular structures appear within normal limits. There is no consolidation. No pleural fluid or pneumothorax. No aggressive osseous lesions identified.Chronic remodeling noted of the left clavicle. IMPRESSION: No acute radiographic findings. Interpreted by: Kyler Hui MD Preliminary Report By: Kyler Hui MD Electronically signed By Kyler Hui MD Dictated Date: 08/22/2022 8:21:15 PM Prelim Date: 08/22/2022 8:22:00 PM Sign Date: 08/22/2022 8:22:00 PM Ordering Provider: [facility] Clinical Note 08-22-2022 Note Date & Type Note Facility 08-22-2022 Note ORIGINAL EXAMINATION: ONE XRAY VIEW OF THE CHEST08/22/2022 8:02 pm COMPARISON: None. HISTORY: ORDERING SYSTEM PROVIDED HISTORY: Reason for Exam: Cough x3 weeks FINDINGS: The cardiomediastinal contours are normal. Calcified granuloma seen in the right upper lung. Vascular structures appear within normal limits. There is no consolidation. No pleural fluid or pneumothorax. No aggressive osseous lesions identified.Chronic remodeling noted of the left clavicle. IMPRESSION: No acute radiographic findings. Interpreted by: Kyler Hui MD Preliminary Report By: Kyler Hui MD Electronically signed By Kyler Hui MD Dictated Date: 08/22/2022 8:21:15 PM Prelim Date: 08/22/2022 8:22:00 PM Sign Date: 08/22/2022 8:22:00 PM Ordering Provider: [facility] Evaluation + Plan note Note Date & Type Note Facility Evaluation + Plan note No data available for this section [facility] Summary Purpose Family History No Family History Records Found Advance Directives No Advanced Directives Records Found Additional Source Comments Care Team (unrecognized sect ion and content) Care Team Personnel Name: ASHER HERNÁNDEZ MD Member Role: Primary Care Physician Address: Address: [address] [place] [id number]- Name: DEMETRA BRUNO MD Position: ED Physician Member Role: ED Physician Address: Address: [facility] [address] [place], [place] [address] Name: Mary Clarke RN Position: AO RN Member Role: RN INFORMATION SOURCE (unrecogn ized section and content) FOR RECORDS PERTAINING TO PATIENTS WHO ARE OR HAVE BEEN ENROLLED IN A CHEMICAL DEPENDENCY/SUBSTANCEABUSE PROGRAM, SOME INFORMATION MAY BE OMITTED. This clinical summary was aggregated from multiple sources. Caution should be exercised in using it in the provision of clinical care. This summary normalizes information from multiple sources, and as a consequence, information in this document may materially change the coding, format and clinical context of patient data. In addition, data may be omitted in some cases. CLINICAL DECISIONS SHOULD BE BASED ON THE PRIMARY CLINICAL RECORDS. [facility]. provides no warranty or guarantee of the accuracy or completeness of information in this document.
== END | disposition home or self-care (01) ==
LOC: MRI 10:54
PROVIDERS: PCP Internal Medicine; Referring Provider Internal Medicine; Visit Provider Internal Medicine
DX: R55 Syncope and collapse (principal); G45.9 Transient cerebral ischemic attack, unspecified
CPT/HCPCS: 70544; 70553; A9575

== ENCOUNTER → 2023-10-27 | Outpatient (CLI) | payer MEDICARE, SELFPAY ==
--- NOTE | 2023-10-27 08:48 | CDU_ITS ---
Reason For Study: CVA Rt. Velocities/BP Lt. Velocities/BP Prox CCA 91.9/17.1 cm/sec. Prox CCA 89.1/20.4 cm/sec. Mid CCA 77.6/13.8 cm/sec. Mid CCA 78.1/22.8 cm/sec. Dist CCA 79.8/19.3 cm/sec. Dist CCA 78.1/19.2 cm/sec. Prox ICA 53.4/14.9 cm/sec. Prox ICA 179.1/54.0 cm/sec. Mid ICA 55.6/20.4 cm/sec. Mid ICA 100.2/26.5 cm/sec. Dist ICA 58.9/21.5 cm/sec. Dist ICA 66.8/18.0 cm/sec. Rt. ICA/CCA = 0.8. Lt. ICA/CCA = 2.3. Prox ECA 125.3/4.7 cm/sec. Prox ECA 170.3/5.7 cm/sec. Rt. Vert. 65.8/22.3 cm/sec. Lt. Vert. 29.6/11.1 cm/sec. Right Extracranial There is intimal thickening but no significant atherosclerotic plaque noted in the right common carotid artery. There is intimal thickening but no significant atherosclerotic plaque noted in the right internal carotid artery. There is heterogeneous, irregular atherosclerotic plaque noted in the right external carotid artery. Antegrade flow is noted in the right vertebral artery. Left Extracranial There is homogeneous, smooth atherosclerotic plaque noted in the left common carotid artery. There is heterogeneous, irregular atherosclerotic plaque noted in the left internal carotid artery. There is heterogeneous, irregular atherosclerotic plaque noted in the left external carotid artery. Antegrade flow is noted in the left vertebral artery. Procedure Carotid Duplex [id number]. This is a Carotid Duplex examination using B-mode, color flow and specral Doppler. The exam was diagnostic. Exam performed in department. VL/Carotid Duplex Ultrasound Interpretation Summary Intimal thickening at the proximal right internal carotid artery with less than 50% stenosis Irregular plaque at the proximal right external carotid artery with less than 5 0% stenosis Heterogenous plaque at the proximal left internal carotid artery with 50 to 69% stenosis. Less than 50% stenosis left external carotid artery Patent and antegrade vertebral arteries bilaterally Ordering Physician: Ellyn Bailey Referring Physician: Ellyn Bailey Performed By: Yayo Bernard RVT
--- NOTE | 2023-10-27 08:48 | ECHOCS_ITS ---
Reason For Study: HTN Procedure This was a 2D Doppler, Color Flow transthoracic echocardiogram. Contrast injection was performed. Exam performed in department. Left Ventricle Normal LV size. Left ventricular systolic function is normal. The estimated ejection fraction is 65 %. Stage 1 diastolic dysfunction. No regional wall motion abnormalities noted. Right Ventricle Normal RV size. Normal systolic function. Atria Normal left atrium. Normal right atrium. Mitral Valve There is mild mitral annular calcification. Tricuspid Valve Normal tricuspid valve. Mild (1+) tricuspid valve insufficiency. Pulmonary artery systolic pressure is 30 mmHg. Aortic Valve Trisinus/trileaflet aortic valve. Mild focal aortic valve calcification. Peak aortic valve gradient 17 mmHg. Mean aortic valve gradient 10 mmHg. Mild aortic stenosis. Pulmonic Valve Normal pulmonic valve. Great Vessels Normal aortic root. The pulmonary artery is normal size. Normal inferior vena cava. Pericardium/Pleural No pericardial effusion. Medication 22 gauge I.V. with prn adaptor inserted into right arm. Diluted definity 3.5ml given slow IV push to enhance endocardial definition. Performed a rapid injection of agitated mix of 9 cc saline and 1cc air to assess for atrial septal defect. MMode/2D Measurements & Calculations LVIDd: 3.7 cm IVSd: 1.00 cm LVOT diam: 2.0 cm LVIDs: 2.8 cm LVPWd: 0.97 cm RVDd: 3.1 cm FS: 26.1 % LVOT area: 3.0 cm2 Ao root diam: 2.6 cm LAV(MOD-sp4): 37.4 ml LVAd ap4: 20.4 cm2 LA dimension: 3.3 cm LVLd ap4: 6.5 cm EDV(MOD-sp4): 53.1 ml EDV(sp4-el): 54.8 ml LVAs ap4: 11.1 cm2 LVLs ap4: 5.7 cm ESV(MOD-sp4): 17.8 ml ESV(sp4-el): 18.4 ml EF(MOD-sp4): 66.4 % EF(sp4-el): 66.4 % SV(MOD-sp4): 35.3 ml SV(sp4-el): 36.4 ml Aortic Valve Planimetry: 1.4 cm2 LA A4 area: 15.2 cm2 RA A4 area: 11.6 cm2 TAPSE: 2.0 cm Time Measurements MV dec time: 0.28 sec Doppler Measurements & Calculations MV E max jeremiah: 94.5 cm/sec Lat Peak E' Jeremiah: 10.8 cm/sec Med Peak E' Jeremiah: 5.6 cm/sec MV A max jeremiah: 121.0 cm/sec E/E' lat: 8.8 E/E' med: 17.0 MV E/A: 0.78 MV V2 max: 141.8 cm/sec MV P1/2t max jeremiah: 93.9 cm/sec Ao V2 max: 208.7 cm/sec MV max P.0 mmHg MV P1/2t: 83.9 msec Ao max P.4 mmHg MV V2 mean: 67.8 cm/sec MV dec slope: 327.7 cm/sec2 Ao V2 mean: 148.5 cm/sec MV mean P.2 mmHg MVA(P1/2t): 2.6 cm2 Ao mean P.0 mmHg MV V2 VTI: 38.3 cm Ao V2 VTI: 49.9 cm MVA(VTI): 2.4 cm2 AV (velocity ratio): 0.62 KATHERINE(I,D): 1.9 cm2 KATHERINE(V,D): 1.6 cm2 LV V1 max: 112.2 cm/sec SV(LVOT): 93.1 ml PA V2 max: 99.2 cm/sec LV V1 max P.0 mmHg LV V1 mean P.9 mmHg LV V1 mean: 81.2 cm/sec LV V1 VTI: 30.9 cm TR max jeremiah: 257.2 cm/sec TR max P.5 mmHg ECHO/Echo Complete W/ Contrast Interpretation Summary Normal LV size. Left ventricular systolic function is normal. The estimated ejection fraction is 65 %. Stage 1 diastolic dysfunction. Mean aortic valve gradient 10 mmHg. Mild aortic stenosis. Contrast injection was performed. Ordering Physician: Ellyn Bailey Referring Physician: Ellyn Bailey Performed By: Edward Rojas RCS
== END | disposition home or self-care (01) ==
LOC: PSN 08:42
PROVIDERS: PCP Internal Medicine; Referring Provider Internal Medicine; Visit Provider Internal Medicine
DX: I10 Essential (primary) hypertension (principal); G45.9 Transient cerebral ischemic attack, unspecified; R55 Syncope and collapse
CPT/HCPCS: 93306; 93880; Q9957; A4216; C8929

== ENCOUNTER → 2023-11-27 | Outpatient (CLI) | payer MEDICARE, SELFPAY ==
--- NOTE | 2023-11-27 12:55 | ART_ITS ---
Reason For Study: PVD/Claudication Procedure A bilateral lower extremity continuous wave Doppler with analog waveform analysis,segmental pressures,and ankle brachial indexes without exercise. Left Segmental Pressures Left brachial= 129mmHg. Left thigh = 156mmHg. Left calf = 89mmHg. Left posterior tibial artery = 49mmHg. Left dorsalis pedis artery = 73mmHg. Unable to acquire toe pressure / no waveform. The left posterior tibial artery waveforms are monophasic. The left dorsalis pedis waveforms are biphasic. Right Segmental Pressures Right brachial= 124mmHg. Right forearm pressure by way of the radial artery = 148mmHg. Right calf = 153mmHg. Right posterior tibial artery = 103mmHg. Right dorsalis pedis artery = 84mmHg. Right digit = 73 mmHg. The right posterior tibial artery waveforms are biphasic. The right dorsalis pedis waveforms are monophasic. Indices The right ankle brachial index by the posterior tibial artery is 0.38. The right ankle brachial index by the dorsalis pedis is 0.57. Unable to acquire toe pressure / no waveform. The left ankle brachial index by the posterior tibial artery is 0.80. The left ankle brachial index by the dorsalis pedis is 0.65. The left post exercise ankle brachial index is 0.57. VL/Lower Ext Art Exam w/o Exercis Interpretation Summary Right CARSON 0.57, moderate arterial insufficiency. Doppler/PVR waveforms and segm ental waveforms reveal distal SFA/popliteal disease. Left CARSON 0.8, moderate arterial insufficiency. Doppler/PVR waveforms and segmen min pressures reveal infrapopliteal disease Ordering Physician: Sergio Lopez MD Referring Physician: Sergio Lopez Performed By: Yayo Bernard RVT
== END | disposition home or self-care (01) ==
LOC: CVS 12:54
PROVIDERS: PCP Internal Medicine; Referring Provider Internal Medicine Cardiovascular Disease; Visit Provider Internal Medicine Cardiovascular Disease
DX: I73.9 Peripheral vascular disease, unspecified (principal)
CPT/HCPCS: 93923

== ENCOUNTER → 2024-09-03 | Outpatient (CLI) | payer MEDICARE, SELFPAY ==
[2024-09-03 13:36] LABS: Absolute Lymphocyte Count 1.52 X10^3/uL (0.83-4.51); Absolute Neutrophil Count 3.4 X10^3/uL (2.0-7.7); Basophil# 0.03 X10^3/uL; Basophil% 0.6 % (0-1); Eosinophil# 0.03 X10^3/uL; Eosinophils% 0.6 % (0-5); Hematocrit 37.7 % (37-47); Hemoglobin 13.1 g/dL (12.0-15.0); Lymphocyte # 1.52 X10^3/ul (0.83-4.51); Lymphocyte % 28.1 % (19-41); Mean Corp Hgb Conc 34.7 g/dL (32-36); Mean Corpuscular Hgb 32.5 pg (27.0-32.0); Mean Corpuscular Volume 93.5 fL (81-99); Mean Platelet Vol. 11.2 fl (6.2-12.0); Monocyte# 0.39 X10^3/uL; Monocyte% 7.2 % (0-10); NRBC Flagged by Analyzer 0 % (0-5); Neutrophil # 3.41 X10^3/uL (2.7-7.7); Neutrophil % 63.1 % (47-70); Platelet Count 298 K/mm3 (150-450); RBC Distribution Width CV 12.6 % (11.6-14.6); RBC Distribution Width SD 43.5 fl (35.1-43.9); Red Blood Count 4.03 M/mm3 (4.2-5.4); White Blood Count 5.4 K/mm3 (4.4-11.0)
[2024-09-03 14:11] LABS: ALB/GLOB Ratio 1.1 RATIO (0.9-2.4); AST(SGOT) 22 U/L (15-37); Alanine Aminotransfer ALT/SGPT 26 U/L (13-56); Albumin, Serum 3.8 g/dL (3.2-5.0); Alkaline Phosphatase 87 U/L (45-117); Anion Gap 6 (5-15); BUN 19 mg/dL (7-18); BUN/Creat Ratio 17.9 RATIO (10-20); Calcium,Total 9.8 mg/dL (8.5-10.1); Chloride 100 mmol/L (98-107); Creatinine, Serum 1.06 mg/dL (0.55-1.02); EST Glomerular Filtration Rate 53 mL/min (>60); Est Glom Filt Rate - Afr Amer 64 mL/min (>60); Globulin 3.6 g/dL (2.2-4.2); Glucose 149 mg/dL (74-106); Magnesium 2.1 mg/dL (1.6-2.6); Potassium 3.8 mmol/L (3.5-5.1); Protein, Total 7.4 g/dL (6.4-8.2); Sodium Level 136 mmol/L (136-145)
[2024-09-03 14:53] LABS: Hemoglobin A1c 6.9 % (3.8-5.6)
== END | disposition home or self-care (01) ==
LOC: LAB 12:17
PROVIDERS: PCP Internal Medicine; Referring Provider Internal Medicine; Visit Provider Internal Medicine
DX: I10 Essential (primary) hypertension (principal); G45.9 Transient cerebral ischemic attack, unspecified; K21.9 Gastro-esophageal reflux disease without esophagitis; F32.9 Major depressive disorder, single episode, unspecified; R73.9 Hyperglycemia, unspecified
CPT/HCPCS: 36415; 80053; 83036; 83735; 84443; 85025

== ENCOUNTER → 2024-12-10 | Outpatient (CLI) | payer MEDICARE, SELFPAY ==
[2024-12-10 15:48] LABS: AST(SGOT) 27 U/L (<=31); Alanine Aminotransfer ALT/SGPT 25 U/L (<=34); Albumin, Serum 4.4 g/dL (3.4-4.8); Alkaline Phosphatase 94 U/L (35-104); Bilirubin, Direct 0.15 mg/dL (0.00-0.30); Cholesterol 248 mg/dL (<=200); Globulin 2.7 g/dL (2.2-4.2); High Density Lipoprotein 69 mg/dL; Low Density Lipoprotein Calc. 125 mg/dL; Protein, Total 7.1 g/dL (5.9-8.4); Total Bilirubin 0.37 mg/dL (0.00-1.30); Triglycerides 272 mg/dL; Very Low Density Lipoprotein 54 mg/dL (5-40); cholesterol:hdl ratio screen 3.61
== END | disposition home or self-care (01) ==
LOC: LAB 14:52
PROVIDERS: PCP Internal Medicine; Referring Provider Physician Assistant Medical; Visit Provider Physician Assistant Medical
DX: E78.5 Hyperlipidemia, unspecified (principal)
CPT/HCPCS: 36415; 80061; 80076

== ENCOUNTER → 2024-12-22 | Outpatient (CLI) | payer MEDICARE, SELFPAY ==
--- NOTE | 2024-12-22 09:41 | CDU_ITS ---
Reason For Study Reason For Study: Left bruit Rt. Velocities/BP Lt. Velocities/BP Prox CCA 103.5/17.6 cm/sec. Prox CCA 92.5/20.0 cm/sec. Mid CCA 83.9/12.6 cm/sec. Mid CCA 72.8/15.1 cm/sec. Dist CCA 54.1/12.6 cm/sec. Dist CCA 83.9/16.3 cm/sec. Prox ICA 39.0/9.7 cm/sec. Prox ICA 223.7/47.4 cm/sec. Mid ICA 45.6/14.2 cm/sec. Mid ICA 95.5/24.3 cm/sec. Dist ICA 69.0/24.4 cm/sec. Dist ICA 70.9/22.1 cm/sec. Rt. ICA/CCA = 0.8. Lt. ICA/CCA = 3.1. Prox ECA 137.5/2.4 cm/sec. Prox ECA 157.2/5.7 cm/sec. Rt. Vert. 53.1/14.6 cm/sec. Lt. Vert. 46.5/15.1 cm/sec. Right Extracranial There is intimal thickening but no significant atherosclerotic plaque noted in the right common carotid artery. There is homogeneous, smooth atherosclerotic plaque noted in the right internal carotid artery. There is heterogeneous, irregular atherosclerotic plaque noted in the right external carotid artery. Antegrade flow is noted in the right vertebral artery. Left Extracranial There is homogeneous, smooth atherosclerotic plaque noted in the left common carotid artery. There is heterogeneous, irregular atherosclerotic plaque noted in the left internal carotid artery. There is heterogeneous, irregular atherosclerotic plaque noted in the left external carotid artery. Antegrade flow is noted in the left vertebral artery. Procedure Carotid Duplex 13567. This is a Carotid Duplex examination using B-mode, color flow and specral Doppler. Exam performed in department. VL/Carotid Duplex Ultrasound Interpretation Summary Mild (<50%) stenosis right extracranial internal carotid. Moderate (50-69%) stenosis left extracranial internal carotid. Patent and antegrade vertebrals bilaterally. Ordering Physician: Polly Amezcua Referring Physician: Ellyn Bailey M.D. Performed By: Phyllis White RVT
== END | disposition home or self-care (01) ==
LOC: CVS 09:40
PROVIDERS: PCP Internal Medicine; Referring Provider Physician Assistant Medical; Visit Provider Physician Assistant Medical
DX: R09.89 Other specified symptoms and signs involving the circulatory and respiratory systems (principal)
CPT/HCPCS: 93880

== ENCOUNTER 2024-12-23 20:19 | Emergency (ER) | payer MEDICARE, SELFPAY ==
[2024-12-23 20:20] VITALS: BP 194/94; PULSE 101; RESP 18; TEMP 36.5; O2SAT 99; BMI 23.8
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
[2024-12-23] MEDS: Acetaminophen 500 MG Tablet 1000 MG PO (21:06)
[2024-12-23] MEDS: 0.9% Normal Saline (1000mL) 1,000 ML 999 ML IV (21:06)
[2024-12-23] MEDS: BACITRACIN 15 GM Tube 1 APPLIC TOPICAL (21:07)
[2024-12-23] MEDS: Diphth,Pertuss(Acell),Tet Vac 0.5 ML Vial IM (21:15)
[2024-12-23 21:19] VITALS: BP 157/69; PULSE 72; RESP 19; O2SAT 99
[2024-12-23 22:00] VITALS: BP 151/67; PULSE 73; RESP 18; O2SAT 97
[2024-12-23 23:00] VITALS: BP 148/78; PULSE 69; RESP 18; O2SAT 97
[2024-12-23 23:44] VITALS: BP 141/73; PULSE 72; RESP 18; TEMP 36.6; O2SAT 97
== END 2024-12-23 23:50 | disposition home or self-care (01) ==
PROVIDERS: Emergency Provider Emergency Medicine; PCP Internal Medicine; Visit Provider Emergency Medicine
DX: T24.232A Burn of second degree of left lower leg, initial encounter (principal); T31.33 Burns involving 30-39% of body surface with 30-39% third degree burns; I10 Essential (primary) hypertension; Z23 Encounter for immunization; E78.5 Hyperlipidemia, unspecified; K21.9 Gastro-esophageal reflux disease without esophagitis; T24.231A Burn of second degree of right lower leg, initial encounter; X04.XXXA Exposure to ignition of highly flammable material, initial encounter; T22.211A Burn of second degree of right forearm, initial encounter; T20.00XA Burn of unspecified degree of head, face, and neck, unspecified site, initial encounter
CPT/HCPCS: 90471; 90715; 96360; 96361; 99282; A4216

== ENCOUNTER 2025-01-15 10:42 | Inpatient (IN) | payer MEDICARE, SELFPAY ==
--- OUTSIDE RECORDS SUMMARY | 2025-01-15 10:48 | XMS RPT_ITS | CCD ---
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 COMPARISON: 01/03/2025 IMPRESSION: Single AP supine view of the abdomen was performed and presented on a single image. Pelvis is excluded. The weighted feeding tube tip is postpyloric likely just within the duodenum and pulled back since the prior. There is largeamount of stool loading. Bowel gas pattern is nonobstructed. No abnormal calcifications. There is degenerative disc disease present. This report has been created using voice recognition software Signed by: Dr. Kathryn Snow at 01/08/2025 17:42 Normal [facility] GLUCOSE BY METERon 5 Glucose [Mass/Vol] 199 mg/dL High 70-99 [facility] Comment on above: Order Comment: Relea se to patient->Automatic Glucose [Mass/Vol] 176 mg/dL High 70-99 [facility] Comment on above: Order Comment: Relea se to patient->Automatic Glucose [Mass/Vol] 213 mg/dL High 70-99 [facility] Comment on above: Order Comment: Relea se to patient->Automatic Glucose [Mass/Vol] 136 mg/dL High 70- [facility] Comment on above: Order Comment: Relea se to patient->Automatic GLUCOSE BY METERon Glucose [Mass/Vol] 191 mg/dL High 70- [facility] Comment on above: Order Comment: Relea se to patient->Automatic Glucose [Mass/Vol] 136 mg/dL High 70- [facility] Comment on above: Order Comment: Relea se to patient->Automatic Glucose [Mass/Vol] 134 mg/dL High 70- [facility] Comment on above: Order Comment: Relea se to patient->Automatic Glucose [Mass/Vol] 179 mg/dL High 70- [facility] Comment on above: Order Comment: Relea se to patient->Automatic RESPIRATORY PANEL FILM ARRAY on 01-07-2025 RESPIRATORY PANEL FILM ARRAY Adenovirus Not Detected Coronavirus 229E Not Detected Coronavirus HKU1 Not Detected Coronavirus NL63 Not Detected Coronavirus OC43 Not Detected Severe Acute Respiratory Syndrome Coronavirus 2 Not Detected Human metapneumovirus Not Detected Human Rhinovirus/Enterovir us Not Detected Influenza A Not Detected Influenza B virus Not Detected Parainfluenza Virus 1 Not Detected Parainfluenza Virus 2 Not Detected Parainfluenza Virus 3 Not Detected Parainfluenza virus 4 Not Detected Respiratory Syncytial Virus Not Detected Bordetella parapertussis Not Detected Bordetella pertussis (ptxP) Not Detected Chlamydia pneumoniae Not Detected Mycoplasma pneumoniae Not Detected Invalid Interpretation Code Not Detected [facility] Comment on above: Order Comment: The R espiratory Panel FilmArray detects DNA or RNA from the following organisms: Adenovirus, Coronavirus (including common [place] strains 229E, HKU1, NL63, and OC43), Severe Acute Respiratory Syndrome Coronavirus 2 (SARS-CoV-2), Human Metapneumovirus, Human Rhinovirus/Enterovirus, Influenza A (including subtypes H1, H1-2009, and H3), Influenza B, Parainfluenza Virus (including Types 1, 2, 3, and 4), Respiratory Syncytial Virus, Bordetella parapertussis (IS 1001), Bordetella pertussis (ptxP), Chlamydia pneumoniae, and Mycoplasma pneumoniae.Note: Negative results do not preclude infection and should not be used as the sole basis for treatment or other patient management decisions. Negative results must be combined with clinical observations, patient history, and epidemiological information.Method: The [employer] Respiratory Panel 2.1 (RP2.1) is a multiplexed nucleic acid test intended for the simultaneous qualitative detection and differentiation of multiple viral and bacterial respiratory organisms, including Severe Acute Respiratory Syndrome Coronavirus 2 (SARS-CoV-2)This test is FDA [place] authorized.Release to patient->Automatic GLUCOSE BY METERon 5 Glucose [Mass/Vol] 170 mg/dL High [address] [place] [address] Comment on above: Order Comment: Relea se to patient->Automatic Glucose [Mass/Vol] 181 mg/dL High [address] [place] [address] Comment on above: Order Comment: Relea se to patient->Automatic Glucose [Mass/Vol] 154 mg/dL [address] Comment on above: Order Comment: Relea se to patient->Automatic Glucose [Mass/Vol] 181 mg/dL High [address] [place] [address] Comment on above: Order Comment: Relea se to patient->Automatic Glucose [Mass/Vol] 192 mg/dL High [address] [place] [address] Comment on above: Order Comment: Relea se to patient->Automatic GLUCOSE BY METERon 5 Glucose [Mass/Vol] 254 mg/dL High [address] [place] [address] Comment on above: Order Comment: Relea se to patient->Automatic Glucose [Mass/Vol] 271 mg/dL [address] Comment on above: Order Comment: Relea se to patient->Automatic Glucose [Mass/Vol] 158 mg/dL [address] Comment on above: Order Comment: Relea se to patient->Automatic Glucose [Mass/Vol] 195 mg/dL High 70-99 [facility] Comment on above: Order Comment: Relea se to patient->Automatic Glucose [Mass/Vol] 178 mg/dL High 70-99 [facility] Comment on above: Order Comment: Relea se to patient->Automatic MAGNESIUMon 01-05-2025 Magnesium [Mass/Vol] 2.1 mg/dL Invalid Interpretation Code 1.5-2.2 [facility] Comment on above: Order Comment: Relea se to patient->Automatic Result Comment: Veri fied By: [id number] RENAL FUNCTION PANELon 01-05 Albumin [Mass/Vol] 2.6 g/dL Low 3.4-4.8 [facility] Comment on above: Order Comment: Relea se to patient->Automatic Result Comment: Veri fied By: [id number] Calcium [Mass/Vol] 8.2 mg/dL Invalid Interpretation Code 7.6-11.0 [facility] Comment on above: Order Comment: Relea se to patient->Automatic Result Comment: Veri fied By: [id number] Chloride [Moles/Vol] 95 mmol/L Low 96-108 [facility] Comment on above: Order Comment: Relea se to patient->Automatic Result Comment: Veri fied By: [id number] CO2 [Moles/Vol] 27.4 mmol/L Invalid Interpretation Code 22.0-29.0 [facility] Comment on above: Order Comment: Relea se to patient->Automatic Result Comment: Veri fied By: [id number] Creatinine [Mass/Vol] 0.74 mg/dL Invalid Interpretation Code 0.50-1.00 [facility] Comment on above: Order Comment: Relea se to patient->Automatic Result Comment: Veri fied By: [id number] eGFR 80 mL/min/1.73 m2 Invalid Interpretation Code >=60 [facility] Comment on above: Order Comment: Relea se to patient->Automatic Glucose [Mass/Vol] 179 mg/dL High 70-99 [facility] Comment on above: Order Comment: Relea se to patient->Automatic Result Comment: Crit steph for Diagnosis of Diabetes: Fasting Specimen (no caloric intake for at least 8 hours): <100 mg/dL Normal 100-125 mg/dL Increased risk for Diabetes >125 mg/dL Diagnostic for Diabetes Random Glucose (any time of day without regard to last meal): > or = 200 mg/dL plus Classic Symptoms of Diabetes Verified By: [id number] Phosphate [Mass/Vol] 4.3 mg/dL Invalid Interpretation Code 2.7-4.5 [facility] Comment on above: Order Comment: Relea se to patient->Automatic Result Comment: Veri fied By: [id number] Potassium [Moles/Vol] 4.6 mmol/L Invalid Interpretation Code 3.3-5.1 [facility] Comment on above: Order Comment: Relea se to patient->Automatic Result Comment: Veri fied By: [id number] Sodium [Moles/Vol] 133 mmol/L Invalid Interpretation Code 133-145 [facility] Comment on above: Order Comment: Relea se to patient->Automatic Result Comment: Veri fied By: [id number] Urea nitrogen [Mass/Vol] 26 mg/dL High 4-19 [facility] Comment on above: Order Comment: Relea se to patient->Automatic Result Comment: Veri fied By: [id number] GLUCOSE BY METERon Glucose [Mass/Vol] 226 mg/dL High 70-99 [facility] Comment on above: Order Comment: Relea se to patient->Automatic Glucose [Mass/Vol] 284 mg/dL High 70-99 [facility] Comment on above: Order Comment: Relea se to patient->Automatic Glucose [Mass/Vol] 131 mg/dL High 70-99 [facility] Comment on above: Order Comment: Relea se to patient->Automatic Glucose [Mass/Vol] 253 mg/dL High 70-99 [facility] Comment on above: Order Comment: Relea se to patient->Automatic Glucose [Mass/Vol] 250 mg/dL High 70-99 [facility] Comment on above: Order Comment: Relea se to patient->Automatic ABDOMEN 1 VIEWon 01-03-2025 ABDOMEN 1 VIEW ABDOMEN 1 VIEW CLINICAL HISTORY: readjustment of corpak TECHNIQUE: Supine frontal view of the abdomen was performed. IMAGES OBTAINED: 1 COMPARISON: 01/03/2025 FINDINGS: BOWEL GAS PATTERN: Feeding tube tip is in the third portion of duodenum. Nonobstructive bowel gas pattern. Some mildly gaseous loops of bowel in the lower abdomen noted. STOOL: There is a moderate overall colonic stool burden. CALCIFICATIONS: No abnormal calcifications. LUNG BASES: Visualized lung bases are aerated. BONES: No bony abnormalities noted. IMPRESSION: Enteric tube tip is in the region of the third portion of duodenum. This report has been created using voice recognition software Signed by: Dr. VASHTI EDUARDO at 01/03/2025 07:58 Normal [facility] GLUCOSE BY METERon Glucose [Mass/Vol] 228 mg/dL High 70-99 [facility] Comment on above: Order Comment: Relea se to patient->Automatic Glucose [Mass/Vol] 263 mg/dL High 70-99 [facility] Comment on above: Order Comment: Relea se to patient->Automatic Glucose [Mass/Vol] 296 mg/dL High 70-99 [facility] Comment on above: Order Comment: Relea se to patient->Automatic Glucose [Mass/Vol] 340 mg/dL High 70-99 [facility] Comment on above: Order Comment: Relea se to patient->Automatic Glucose [Mass/Vol] 188 mg/dL High 70-99 [facility] Comment on above: Order Comment: Relea se to patient->Automatic Glucose [Mass/Vol] 218 mg/dL High 70-99 [facility] Comment on above: Order Comment: Relea se to patient->Automatic MAGNESIUMon 01-03-2025 Magnesium [Mass/Vol] 2.0 mg/dL Invalid Interpretation Code 1.5-2.2 [facility] Comment on above: Result Comment: Veri fied By: [id number] RENAL FUNCTION PANELon 01-03 Albumin [Mass/Vol] 2.5 g/dL Low 3.4-4.8 [facility] Comment on above: Order Comment: Relea se to patient->Automatic Result Comment: Veri fied By: [id number] Calcium [Mass/Vol] 8.4 mg/dL Invalid Interpretation Code 7.6-11.0 [facility] Comment on above: Order Comment: Relea se to patient->Automatic Result Comment: Veri fied By: [id number] Chloride [Moles/Vol] 98 mmol/L Invalid Interpretation Code 96-108 [facility] Comment on above: Order Comment: Relea se to patient->Automatic Result Comment: Veri fied By: [id number] CO2 [Moles/Vol] 24.8 mmol/L Invalid Interpretation Code 22.0-29.0 [facility] Comment on above: Order Comment: Relea se to patient->Automatic Result Comment: Veri fied By: [id number] Creatinine [Mass/Vol] 0.65 mg/dL Invalid Interpretation Code 0.50-1.00 [facility] Comment on above: Order Comment: Relea se to patient->Automatic Result Comment: Veri fied By: [id number] eGFR 87 mL/min/1.73 m2 Invalid Interpretation Code >=60 [facility] Comment on above: Order Comment: Relea se to patient->Automatic Glucose [Mass/Vol] 221 mg/dL High 70-99 [facility] Comment on above: Order Comment: Relea se to patient->Automatic Result Comment: Delfina choi for Diagnosis of Diabetes: Fasting Specimen (no caloric intake for at least 8 hours): <100 mg/dL Normal 100-125 mg/dL Increased risk for Diabetes >125 mg/dL Diagnostic for Diabetes Random Glucose (any time of day without regard to last meal): > or = 200 mg/dL plus Classic Symptoms of Diabetes Verified By: [id number] Phosphate [Mass/Vol] 3.3 mg/dL Invalid Interpretation Code 2.7-4.5 [facility] Comment on above: Order Comment: Relea se to patient->Automatic Result Comment: Veri fied By: [id number] Potassium [Moles/Vol] 4.7 mmol/L Invalid Interpretation Code 3.3-5.1 [facility] Comment on above: Order Comment: Relea se to patient->Automatic Result Comment: Veri fied By: [id number] Sodium [Moles/Vol] 134 mmol/L Invalid Interpretation Code 133-145 [facility] Comment on above: Order Comment: Relea se to patient->Automatic Result Comment: Veri fied By: [id number] Urea nitrogen [Mass/Vol] 23 mg/dL High 4-19 [facility] Comment on above: Order Comment: Relea se to patient->Automatic Result Comment: Veri fied By: [id number] CALCIUM, IONIZED WBon 2024 Calcium, Ionized WB 4.07 mg/dL Low 4.60-5.28 [facility] PH 7.544 High 7.350-7.450 [facility] COMPLETE BLOOD COUNT WITH DI FFERENTIALon 01-02-2025 Erythrocyte distribution width (RBC) [Ratio] 13.2 % Invalid Interpretation Code 11.9-14.8 [facility] Comment on above: Order Comment: Relea se to patient->Automatic Hematocrit (Bld) [Volume fraction] 25.0 % Low 35.5-44.6 [facility] Comment on above: Order Comment: Relea se to patient->Automatic Hemoglobin (Bld) [Mass/Vol] 8.6 g/dL Low 11.4-14.8 [facility] Comment on above: Order Comment: Relea se to patient->Automatic Immature granulocytes/100 WBC (Bld) 11.6 % High 0.2-0.5 [facility] Comment on above: Order Comment: Relea se to patient->Automatic Result Comment: Nhung ture Granulocyte Percent includes promyelocytes, myelocytes,and metamyelocytes. IG% > 1.0 indicates a left shift is present. With automated differentials, bands are included in the neutrophil count and not in the Immature Granulocyte Percent. MCH (RBC) [Entitic mass] 32.2 pg High 25.7-31.2 [facility] Comment on above: Order Comment: Relea se to patient->Automatic MCHC 34.4 % High 31.3-34.0 [facility] Comment on above: Order Comment: Relea se to patient->Automatic MCV (RBC) [Entitic vol] 93.6 fL Invalid Interpretation Code 80.7-93.7 [facility] Comment on above: Order Comment: Relea se to patient->Automatic Nucleated RBC/100 WBC (Bld) [Ratio] 0.5 % High 0.0-0.0 [facility] Comment on above: Order Comment: Relea se to patient->Automatic Platelet mean volume (Bld) [Entitic vol] 9.7 fL Invalid Interpretation Code 9.6-11.9 [facility] Comment on above: Order Comment: Relea se to patient->Automatic Platelets 343 10E3/???L Invalid Interpretation Code 150-400 [facility] Comment on above: Order Comment: Relea se to patient->Automatic RBC 2.67 10E6/???L Low 4.03-4.91 [facility] Comment on above: Order Comment: Relea se to patient->Automatic WBC 10.9 10E3/???L High 4.9-10.0 [facility] Comment on above: Order Comment: Relea se to patient->Automatic GLUCOSE BY METERon Glucose [Mass/Vol] 285 mg/dL High - [facility] Comment on above: Order Comment: Relea se to patient->Automatic Glucose [Mass/Vol] 322 mg/dL High 70- [facility] Comment on above: Order Comment: Relea se to patient->Automatic Glucose [Mass/Vol] 335 mg/dL High 70- [facility] Comment on above: Order Comment: Relea se to patient->Automatic Glucose [Mass/Vol] 405 mg/dL High 70- [facility] Comment on above: Order Comment: Relea se to patient->Automatic MANUAL DIFFERENTIALon 2024 Absolute Eosinophil No. 0.22 10E3/???L Invalid Interpretation Code 0.04-0.27 [facility] Comment on above: Order Comment: Relea se to patient->Automatic Absolute Lymphocyte No. 2.18 10E3/???L Invalid Interpretation Code 1.51-2.99 [facility] Comment on above: Order Comment: Relea se to patient->Automatic Absolute Monocyte No. 1.53 10E3/???L High 0.36-0.77 [facility] Comment on above: Order Comment: Relea se to patient->Automatic Absolute Neutrophil Count 6.54 10E3/???L High 2.43-6.42 [facility] Comment on above: Order Comment: Relea se to patient->Automatic Atypical Lymphocytes 0 % Invalid Interpretation Code 0-8 [facility] Comment on above: Order Comment: Relea se to patient->Automatic Band Neutrophils 5 % Invalid Interpretation Code 5-11 [facility] Comment on above: Order Comment: Relea se to patient->Automatic Eosinophils 2.0 % Invalid Interpretation Code 0.6-3.8 [facility] Comment on above: Order Comment: Relea se to patient->Automatic Hypochromia Occasional Invalid Interpretation Code [facility] Comment on above: Order Comment: Relea se to patient->Automatic Lymphocytes 20.0 % Low 21.8-42.1 [facility] Comment on above: Order Comment: Relea se to patient->Automatic Metamyelocytes 4 % High 0-0 [facility] Comment on above: Order Comment: Relea se to patient->Automatic Monocytes 14.0 % High 5.6-10.2 [facility] Comment on above: Order Comment: Relea se to patient->Automatic Myelocytes 0 % Invalid Interpretation Code 0-0 [facility] Comment on above: Order Comment: Relea se to patient->Automatic Segmented Neutrophils 55.0 % Invalid Interpretation Code 46.0-68.6 [facility] Comment on above: Order Comment: Relea se to patient->Automatic Toxic Granules Moderate Invalid Interpretation Code [facility] Comment on above: Order Comment: Relea se to patient->Automatic RENAL FUNCTION PANELon 01-02 Albumin [Mass/Vol] 2.4 g/dL Low 3.4-4.8 [facility] Comment on above: Order Comment: Relea se to patient->Automatic Result Comment: Veri fied By: [id number] Calcium [Mass/Vol] 7.6 mg/dL Invalid Interpretation Code 7.6-11.0 [facility] Comment on above: Order Comment: Relea se to patient->Automatic Result Comment: Veri fied By: [id number] Chloride [Moles/Vol] 97 mmol/L Invalid Interpretation Code 96-108 [facility] Comment on above: Order Comment: Relea se to patient->Automatic Result Comment: Veri fied By: [id number] CO2 [Moles/Vol] 21.4 mmol/L Low 22.0-29.0 [facility] Comment on above: Order Comment: Relea se to patient->Automatic Result Comment: Veri fied By: [id number] Creatinine [Mass/Vol] 0.70 mg/dL Invalid Interpretation Code 0.50-1.00 [facility] Comment on above: Order Comment: Relea se to patient->Automatic Result Comment: Veri fied By: [id number] eGFR 86 mL/min/1.73 m2 Invalid Interpretation Code >=60 [facility] Comment on above: Order Comment: Relea se to patient->Automatic Glucose [Mass/Vol] 367 mg/dL High 70-99 [facility] Comment on above: Order Comment: Relea se to patient->Automatic Result Comment: Crit steph for Diagnosis of Diabetes: Fasting Specimen (no caloric intake for at least 8 hours): <100 mg/dL Normal 100-125 mg/dL Increased risk for Diabetes >125 mg/dL Diagnostic for Diabetes Random Glucose (any time of day without regard to last meal): > or = 200 mg/dL plus Classic Symptoms of Diabetes Verified By: [id number] Phosphate [Mass/Vol] 2.1 mg/dL Low 2.7-4.5 [facility] Comment on above: Order Comment: Relea se to patient->Automatic Result Comment: Veri fied By: [id number] Potassium [Moles/Vol] 4.9 mmol/L Invalid Interpretation Code 3.3-5.1 [facility] Comment on above: Order Comment: Relea se to patient->Automatic Result Comment: Veri fied By: [id number] Sodium [Moles/Vol] 129 mmol/L Low 133-145 [facility] Comment on above: Order Comment: Relea se to patient->Automatic Result Comment: Veri fied By: [id number] Urea nitrogen [Mass/Vol] 24 mg/dL High 4-19 [facility] Comment on above: Order Comment: Relea se to patient->Automatic Result Comment: Veri fied By: [id number] CALCIUM, IONIZED WBon 2024 Calcium, Ionized WB 4.07 mg/dL Low 4.60-5.28 [facility] PH 7.486 High 7.350-7.450 [facility] Calcium, Ionized WB 3.18 mg/dL Critically low 4.60-5.28 [facility] PH 7.522 High 7.350-7.450 [facility] COMPLETE BLOOD COUNT WITH DI FFERENTIALon 01-01-2025 Erythrocyte distribution width (RBC) [Ratio] 13.0 % Invalid Interpretation Code 11.9-14.8 [facility] Comment on above: Order Comment: Relea se to patient->Automatic Hematocrit (Bld) [Volume fraction] 22.6 % Low 35.5-44.6 [facility] Comment on above: Order Comment: Relea se to patient->Automatic Hemoglobin (Bld) [Mass/Vol] 8.0 g/dL Low 11.4-14.8 [facility] Comment on above: Order Comment: Relea se to patient->Automatic Immature granulocytes/100 WBC (Bld) 6.6 % High 0.2-0.5 [facility] Comment on above: Order Comment: Relea se to patient->Automatic Result Comment: Nhung ture Granulocyte Percent includes promyelocytes, myelocytes,and metamyelocytes. IG% > 1.0 indicates a left shift is present. With automated differentials, bands are included in the neutrophil count and not in the Immature Granulocyte Percent. MCH (RBC) [Entitic mass] 32.7 pg High 25.7-31.2 [facility] Comment on above: Order Comment: Relea se to patient->Automatic MCHC 35.4 % High 31.3-34.0 [facility] Comment on above: Order Comment: Relea se to patient->Automatic MCV (RBC) [Entitic vol] 92.2 fL Invalid Interpretation Code 80.7-93.7 [facility] Comment on above: Order Comment: Relea se to patient->Automatic Nucleated RBC/100 WBC (Bld) [Ratio] 0.0 % Invalid Interpretation Code 0.0-0.0 [facility] Comment on above: Order Comment: Relea se to patient->Automatic Platelet mean volume (Bld) [Entitic vol] 10.0 fL Invalid Interpretation Code 9.6-11.9 [facility] Comment on above: Order Comment: Relea se to patient->Automatic Platelets 277 10E3/???L Invalid Interpretation Code 150-400 [facility] Comment on above: Order Comment: Relea se to patient->Automatic RBC 2.45 10E6/???L Low 4.03-4.91 [facility] Comment on above: Order Comment: Relea se to patient->Automatic WBC 7.6 10E3/???L Invalid Interpretation Code 4.9-10.0 [facility] Comment on above: Order Comment: Relea se to patient->Automatic GLUCOSE BY METERon Glucose [Mass/Vol] 341 mg/dL High 70-99 [facility] Comment on above: Order Comment: Relea se to patient->Automatic Glucose [Mass/Vol] 382 mg/dL High 70-99 [facility] Comment on above: Order Comment: Relea se to patient->Automatic Glucose [Mass/Vol] 334 mg/dL High 70-99 [facility] Comment on above: Order Comment: Relea se to patient->Automatic Glucose [Mass/Vol] 310 mg/dL High 70-99 [facility] Comment on above: Order Comment: Relea se to patient->Automatic Glucose [Mass/Vol] 343 mg/dL High 70-99 [facility] Comment on above: Order Comment: Relea se to patient->Automatic Glucose [Mass/Vol] 321 mg/dL High 70-99 [facility] Comment on above: Order Comment: Relea se to patient->Automatic MAGNESIUMon 01-01-2025 Magnesium [Mass/Vol] 2.1 mg/dL Invalid Interpretation Code 1.5-2.2 [facility] Comment on above: Order Comment: Relea se to patient->Automatic Result Comment: Veri fied By: [id number] MANUAL DIFFERENTIALon 2024 Absolute Eosinophil No. 0.08 10E3/???L Invalid Interpretation Code 0.04-0.27 [facility] Comment on above: Order Comment: Relea se to patient->Automatic Absolute Lymphocyte No. 1.90 10E3/???L Invalid Interpretation Code 1.51-2.99 [facility] Comment on above: Order Comment: Relea se to patient->Automatic Absolute Monocyte No. 0.53 10E3/???L Invalid Interpretation Code 0.36-0.77 [facility] Comment on above: Order Comment: Relea se to patient->Automatic Absolute Neutrophil Count 5.09 10E3/???L Invalid Interpretation Code 2.43-6.42 [facility] Comment on above: Order Comment: Relea se to patient->Automatic Anisocytosis Occasional Invalid Interpretation Code [facility] Comment on above: Order Comment: Relea se to patient->Automatic Atypical Lymphocytes 2 % Invalid Interpretation Code 0-8 [facility] Comment on above: Order Comment: Relea se to patient->Automatic Band Neutrophils 5 % Invalid Interpretation Code 5-11 [facility] Comment on above: Order Comment: Relea se to patient->Automatic Eosinophils 1.0 % Invalid Interpretation Code 0.6-3.8 [facility] Comment on above: Order Comment: Relea se to patient->Automatic Lymphocytes 23.0 % Invalid Interpretation Code 21.8-42.1 [facility] Comment on above: Order Comment: Relea se to patient->Automatic Metamyelocytes 0 % Invalid Interpretation Code 0-0 [facility] Comment on above: Order Comment: Relea se to patient->Automatic Monocytes 7.0 % Invalid Interpretation Code 5.6-10.2 [facility] Comment on above: Order Comment: Relea se to patient->Automatic Myelocytes 0 % Invalid Interpretation Code 0-0 [facility] Comment on above: Order Comment: Relea se to patient->Automatic Poikilocytosis Occasional Invalid Interpretation Code [facility] Comment on above: Order Comment: Relea se to patient->Automatic Segmented Neutrophils 62.0 % Invalid Interpretation Code 46.0-68.6 [facility] Comment on above: Order Comment: Relea se to patient->Automatic RENAL FUNCTION PANELon 01-01 Albumin [Mass/Vol] 2.6 g/dL Low 3.4-4.8 [facility] Comment on above: Order Comment: Relea se to patient->Automatic Result Comment: Veri fied By: [id number] Calcium [Mass/Vol] 7.7 mg/dL Invalid Interpretation Code 7.6-11.0 [facility] Comment on above: Order Comment: Relea se to patient->Automatic Result Comment: Veri fied By: [id number] Chloride [Moles/Vol] 98 mmol/L Invalid Interpretation Code 96-108 [facility] Comment on above: Order Comment: Relea se to patient->Automatic Result Comment: Veri fied By: [id number] CO2 [Moles/Vol] 19.7 mmol/L Low 22.0-29.0 [facility] Comment on above: Order Comment: Relea se to patient->Automatic Result Comment: Veri fied By: [id number] Creatinine [Mass/Vol] 0.77 mg/dL Invalid Interpretation Code 0.50-1.00 [facility] Comment on above: Order Comment: Relea se to patient->Automatic Result Comment: Veri fied By: [id number] eGFR 77 mL/min/1.73 m2 Invalid Interpretation Code >=60 [facility] Comment on above: Order Comment: Relea se to patient->Automatic Glucose [Mass/Vol] 335 mg/dL High 70-99 [facility] Comment on above: Order Comment: Relea se to patient->Automatic Result Comment: Crit eria for Diagnosis of Diabetes: Fasting Specimen (no caloric intake for at least 8 hours): <100 mg/dL Normal 100-125 mg/dL Increased risk for Diabetes >125 mg/dL Diagnostic for Diabetes Random Glucose (any time of day without regard to last meal): > or = 200 mg/dL plus Classic Symptoms of Diabetes Verified By: [id number] Phosphate [Mass/Vol] 2.1 mg/dL Low 2.7-4.5 [facility] Comment on above: Order Comment: Relea se to patient->Automatic Result Comment: Veri fied By: [id number] Potassium [Moles/Vol] 4.2 mmol/L Invalid Interpretation Code 3.3-5.1 [facility] Comment on above: Order Comment: Relea se to patient->Automatic Result Comment: Veri fied By: [id number] Sodium [Moles/Vol] 129 mmol/L Low 133-145 [facility] Comment on above: Order Comment: Relea se to patient->Automatic Result Comment: Veri fied By: [id number] Urea nitrogen [Mass/Vol] 20 mg/dL High 4-19 [facility] Comment on above: Order Comment: Relea se to patient->Automatic Result Comment: Veri fied By: [id number] Albumin [Mass/Vol] 2.3 g/dL Low 3.4-4.8 [facility] Comment on above: Order Comment: Relea se to patient->Automatic Result Comment: Veri fied By: [id number] Calcium [Mass/Vol] 6.9 mg/dL Critically low 7.6-11.0 [facility] Comment on above: Order Comment: Relea se to patient->Automatic Result Comment: Veri fied By: [id number] This result was previously suppressed from the chart. Chloride [Moles/Vol] 102 mmol/L Invalid Interpretation Code 96-108 [facility] Comment on above: Order Comment: Relea se to patient->Automatic Result Comment: Veri fied By: [id number] CO2 [Moles/Vol] 17.6 mmol/L Low 22.0-29.0 [facility] Comment on above: Order Comment: Relea se to patient->Automatic Result Comment: Veri fied By: [id number] Creatinine [Mass/Vol] 0.75 mg/dL Invalid Interpretation Code 0.50-1.00 [facility] Comment on above: Order Comment: Relea se to patient->Automatic Result Comment: Veri fied By: [id number] eGFR 79 mL/min/1.73 m2 Invalid Interpretation Code >=60 [facility] Comment on above: Order Comment: Relea se to patient->Automatic Glucose [Mass/Vol] 340 mg/dL High 70-99 [facility] Comment on above: Order Comment: Relea se to patient->Automatic Result Comment: Crit eria for Diagnosis of Diabetes: Fasting Specimen (no caloric intake for at least 8 hours): <100 mg/dL Normal 100-125 mg/dL Increased risk for Diabetes >125 mg/dL Diagnostic for Diabetes Random Glucose (any time of day without regard to last meal): > or = 200 mg/dL plus Classic Symptoms of Diabetes Verified By: [id number] Phosphate [Mass/Vol] 3.4 mg/dL Invalid Interpretation Code 2.7-4.5 [facility] Comment on above: Order Comment: Relea se to patient->Automatic Result Comment: Veri fied By: [id number] Potassium [Moles/Vol] 4.4 mmol/L Invalid Interpretation Code 3.3-5.1 [facility] Comment on above: Order Comment: Relea se to patient->Automatic Result Comment: Veri fied By: [id number] Sodium [Moles/Vol] 130 mmol/L Low 133-145 [facility] Comment on above: Order Comment: Relea se to patient->Automatic Result Comment: Veri fied By: [id number] Urea nitrogen [Mass/Vol] 19 mg/dL Invalid Interpretation Code 4-19 [facility] Comment on above: Order Comment: Relea se to patient->Automatic Result Comment: Veri fied By: [id number] ABDOMEN 1 VIEWon 12-31-2024 ABDOMEN 1 VIEW ABDOMEN 1 VIEW CLINICAL HISTORY: confirm corpak placement TECHNIQUE: Supine frontal view of the abdomen was performed. IMAGES OBTAINED: 1 COMPARISON: Earlier today at 2:06 PM FINDINGS: BOWEL GAS PATTERN: Tip of the Corpak now lies in the region of the first part of duodenum/distal pylorus. Overall nonobstructive bowel gas pattern. STOOL: There is a moderate overall colonic stool burden. CALCIFICATIONS: Periaortic calcification/athero sclerotic calcification is seen in the lower chest. LUNG BASES: Visualized lung bases are aerated. BONES: No bony abnormalities noted. IMPRESSION: Tip of the Corpak now lies in the first part of duodenum/distal pylorus. This report has been created using voice recognition software Signed by: Dr. VASHTI EDUARDO at 12/31/2024 16:31 Normal [facility] CORTISOL, PLASMAon 5 Cortisol, Plasma 20.70 UG/DL Invalid Interpretation Code [facility] Comment on above: Order Comment: Relea se to patient->Automatic Result Comment: Morn ing hours 6 - 10 a.m.: 6.02 - 18.40 ug/dL Afternoon hours 4 - 8 p.m.: 2.68 - 10.50 ug/dL Verified By: [id number] GLUCOSE BY METERon 5 Glucose [Mass/Vol] 321 mg/dL High 70-99 [facility] Comment on above: Order Comment: Relea se to patient->Automatic Glucose [Mass/Vol] 325 mg/dL High 70-99 [facility] Comment on above: Order Comment: Relea se to patient->Automatic Glucose [Mass/Vol] 322 mg/dL High 70-99 [facility] Comment on above: Order Comment: Relea se to patient->Automatic Glucose [Mass/Vol] 238 mg/dL High 70-99 [facility] Comment on above: Order Comment: Relea se to patient->Automatic H&Daniel 12-31-2024 Yard Clerk Authentication Interface Message Text Andreea Everett PA-C 12/31/2024 Normal [facility] ISTAT, GASES AND WHOLE BLOOD ANALYTES, ARTERIALon 12-31-2024 Calcium Ionized, iSTAT, Arterial 4.30 mg/dL Low 4.60-5.28 [facility] Comment on above: Order Comment: Relea se to patient->Automatic CO2 [Moles/Vol] 18.0 mmol/L Low 22.0-26.0 [facility] Comment on above: Order Comment: Relea se to patient->Automatic Glucose [Mass/Vol] 280 mg/dL High 70-99 [facility] Comment on above: Order Comment: Relea se to patient->Automatic HCO3 (Bld) [Moles/Vol] 17.0 mmol/L Low 18.0-24.0 [facility] Comment on above: Order Comment: Relea se to patient->Automatic Hematocrit (Bld) [Volume fraction] 26 % Low 35-47 [facility] Comment on above: Order Comment: Relea se to patient->Automatic Hemoglobin (Bld) [Mass/Vol] 8.8 g/dL Low 12.0-16.0 [facility] Comment on above: Order Comment: Relea se to patient->Automatic Oxygen saturation in Blood 94.0 % Low 95.0-98.0 [facility] Comment on above: Order Comment: Relea se to patient->Automatic PCO2, iSTAT, Arterial 34.0 mm Hg Low 35.0-45.0 [facility] Comment on above: Order Comment: Relea se to patient->Automatic pH Art 7.310 Low 7.350-7.450 [facility] Comment on above: Order Comment: Relea se to patient->Automatic pO2, iSTAT, Arterial 79.0 mm Hg Low 83.0-108.0 [facility] Comment on above: Order Comment: Relea se to patient->Automatic Potassium [Moles/Vol] 4.0 mmol/L Invalid Interpretation Code [facility] Comment on above: Order Comment: Relea se to patient->Automatic Sodium [Moles/Vol] 130 mmol/L Low 133-145 [facility] Comment on above: Order Comment: Relea se to patient->Automatic Std. Base Excess, iSTAT, Arterial -8.0 mmol/L Low -2.0-3.0 [facility] Comment on above: Order Comment: Relea se to patient->Automatic Calcium Ionized, iSTAT, Arterial 4.20 mg/dL Low 4.60-5.28 [facility] Comment on above: Order Comment: Relea se to patient->Automatic CO2 [Moles/Vol] 19.0 mmol/L Low 22.0-26.0 [facility] Comment on above: Order Comment: Relea se to patient->Automatic Glucose [Mass/Vol] 252 mg/dL High 70-99 [facility] Comment on above: Order Comment: Relea se to patient->Automatic HCO3 (Bld) [Moles/Vol] 18.0 mmol/L Invalid Interpretation Code 18.0-24.0 [facility] Comment on above: Order Comment: Relea se to patient->Automatic Hematocrit (Bld) [Volume fraction] 28 % Low 35-47 [facility] Comment on above: Order Comment: Relea se to patient->Automatic Hemoglobin (Bld) [Mass/Vol] 9.5 g/dL Low 12.0-16.0 [facility] Comment on above: Order Comment: Relea se to patient->Automatic Oxygen saturation in Blood 95.0 % Invalid Interpretation Code 95.0-98.0 [facility] Comment on above: Order Comment: Relea se to patient->Automatic PCO2, iSTAT, Arterial 33.0 mm Hg Low 35.0-45.0 [facility] Comment on above: Order Comment: Relea se to patient->Automatic pH Art 7.350 Invalid Interpretation Code 7.350-7.450 [facility] Comment on above: Order Comment: Relea se to patient->Automatic pO2, iSTAT, Arterial 81.0 mm Hg Low 83.0-108.0 [facility] Comment on above: Order Comment: Relea se to patient->Automatic Potassium [Moles/Vol] 4.0 mmol/L Invalid Interpretation Code [facility] Comment on above: Order Comment: Relea se to patient->Automatic Sodium [Moles/Vol] 133 mmol/L Invalid Interpretation Code 133-145 [facility] Comment on above: Order Comment: Relea se to patient->Automatic Std. Base Excess, iSTAT, Arterial -6.0 mmol/L Low -2.0-3.0 [facility] Comment on above: Order Comment: Relea se to patient->Automatic Calcium Ionized, iSTAT, Arterial 4.70 mg/dL Invalid Interpretation Code 4.60-5.28 [facility] Comment on above: Order Comment: Relea se to patient->Automatic CO2 [Moles/Vol] 22.0 mmol/L Invalid Interpretation Code 22.0-26.0 [facility] Comment on above: Order Comment: Relea se to patient->Automatic Glucose [Mass/Vol] 235 mg/dL High 70-99 [facility] Comment on above: Order Comment: Relea se to patient->Automatic HCO3 (Bld) [Moles/Vol] 21.0 mmol/L Invalid Interpretation Code 18.0-24.0 [facility] Comment on above: Order Comment: Relea se to patient->Automatic Hematocrit (Bld) [Volume fraction] 31 % Low 35-47 [facility] Comment on above: Order Comment: Relea se to patient->Automatic Hemoglobin (Bld) [Mass/Vol] 10.5 g/dL Low 12.0-16.0 [facility] Comment on above: Order Comment: Relea se to patient->Automatic Oxygen saturation in Blood 99.0 % High 95.0-98.0 [facility] Comment on above: Order Comment: Relea se to patient->Automatic PCO2, iSTAT, Arterial 43.0 mm Hg Invalid Interpretation Code 35.0-45.0 [facility] Comment on above: Order Comment: Relea se to patient->Automatic pH Art 7.300 Low 7.350-7.450 [facility] Comment on above: Order Comment: Relea se to patient->Automatic pO2, iSTAT, Arterial 145.0 mm Hg Critically high 83.0-108. 0 [facility] Comment on above: Order Comment: Relea se to patient->Automatic Potassium [Moles/Vol] 4.0 mmol/L Invalid Interpretation Code [facility] Comment on above: Order Comment: Relea se to patient->Automatic Sodium [Moles/Vol] 130 mmol/L Low 133-145 [facility] Comment on above: Order Comment: Relea se to patient->Automatic Std. Base Excess, iSTAT, Arterial -5.0 mmol/L Low -2.0-3.0 [facility] Comment on above: Order Comment: Relea se to patient->Automatic MAGNESIUMon 12-31-2024 Magnesium [Mass/Vol] 1.9 mg/dL Invalid Interpretation Code 1.5-2.2 [facility] Comment on above: Result Comment: Veri fied By: [id number] RENAL FUNCTION PANELon 12-31 Albumin [Mass/Vol] 2.6 g/dL Low 3.4-4.8 [facility] Comment on above: Order Comment: Relea se to patient->Automatic Result Comment: Veri fied By: [id number] Calcium [Mass/Vol] 7.0 mg/dL Low 7.6-11.0 [facility] Comment on above: Order Comment: Relea se to patient->Automatic Result Comment: Veri fied By: [id number] Chloride [Moles/Vol] 103 mmol/L Invalid Interpretation Code 96-108 [facility] Comment on above: Order Comment: Relea se to patient->Automatic Result Comment: Veri fied By: [id number] CO2 [Moles/Vol] 15.9 mmol/L Low 22.0-29.0 [facility] Comment on above: Order Comment: Relea se to patient->Automatic Result Comment: Veri fied By: [id number] Creatinine [Mass/Vol] 0.76 mg/dL Invalid Interpretation Code 0.50-1.00 [facility] Comment on above: Order Comment: Relea se to patient->Automatic Result Comment: Veri fied By: [id number] eGFR 78 mL/min/1.73 m2 Invalid Interpretation Code >=60 [facility] Comment on above: Order Comment: Relea se to patient->Automatic Glucose [Mass/Vol] 343 mg/dL High 70-99 [facility] Comment on above: Order Comment: Relea se to patient->Automatic Result Comment: Crit eria for Diagnosis of Diabetes: Fasting Specimen (no caloric intake for at least 8 hours): <100 mg/dL Normal 100-125 mg/dL Increased risk for Diabetes >125 mg/dL Diagnostic for Diabetes Random Glucose (any time of day without regard to last meal): > or = 200 mg/dL plus Classic Symptoms of Diabetes Verified By: [id number] Phosphate [Mass/Vol] 5.0 mg/dL High 2.7-4.5 [facility] Comment on above: Order Comment: Relea se to patient->Automatic Result Comment: Veri fied By: [id number] Potassium [Moles/Vol] 4.4 mmol/L Invalid Interpretation Code 3.3-5.1 [facility] Comment on above: Order Comment: Relea se to patient->Automatic Result Comment: Veri fied By: [id number] Sodium [Moles/Vol] 133 mmol/L Invalid Interpretation Code 133-145 [facility] Comment on above: Order Comment: Relea se to patient->Automatic Result Comment: Veri fied By: [id number] Urea nitrogen [Mass/Vol] 20 mg/dL High 4-19 [facility] Comment on above: Order Comment: Relea se to patient->Automatic Result Comment: Veri fied By: [id number] Albumin [Mass/Vol] 2.8 g/dL Low 3.4-4.8 [facility] Comment on above: Order Comment: Relea se to patient->Automatic Result Comment: Veri fied By: [id number] Calcium [Mass/Vol] 8.1 mg/dL Invalid Interpretation Code 7.6-11.0 [facility] Comment on above: Order Comment: Relea se to patient->Automatic Result Comment: Veri fied By: [id number] Chloride [Moles/Vol] 97 mmol/L Invalid Interpretation Code 96-108 [facility] Comment on above: Order Comment: Relea se to patient->Automatic Result Comment: Veri fied By: [id number] CO2 [Moles/Vol] 18.9 mmol/L Low 22.0-29.0 [facility] Comment on above: Order Comment: Relea se to patient->Automatic Result Comment: Veri fied By: [id number] Creatinine [Mass/Vol] 0.88 mg/dL Invalid Interpretation Code 0.50-1.00 [facility] Comment on above: Order Comment: Relea se to patient->Automatic Result Comment: Veri fied By: [id number] eGFR 65 mL/min/1.73 m2 Invalid Interpretation Code >=60 [facility] Comment on above: Order Comment: Relea se to patient->Automatic Glucose [Mass/Vol] 249 mg/dL High 70-99 [facility] Comment on above: Order Comment: Relea se to patient->Automatic Result Comment: Crit eria for Diagnosis of Diabetes: Fasting Specimen (no caloric intake for at least 8 hours): <100 mg/dL Normal 100-125 mg/dL Increased risk for Diabetes >125 mg/dL Diagnostic for Diabetes Random Glucose (any time of day without regard to last meal): > or = 200 mg/dL plus Classic Symptoms of Diabetes Verified By: [id number] Phosphate [Mass/Vol] 2.5 mg/dL Low 2.7-4.5 [facility] Comment on above: Order Comment: Relea se to patient->Automatic Result Comment: Veri fied By: [id number] Potassium [Moles/Vol] 4.3 mmol/L Invalid Interpretation Code 3.3-5.1 [facility] Comment on above: Order Comment: Relea se to patient->Automatic Result Comment: Veri fied By: [id number] Sodium [Moles/Vol] 128 mmol/L Low 133-145 [facility] Comment on above: Order Comment: Relea se to patient->Automatic Result Comment: Veri fied By: [id number] Urea nitrogen [Mass/Vol] 28 mg/dL High 4-19 [facility] Comment on above: Order Comment: Relea se to patient->Automatic Result Comment: Dave fied By: [id number] TSH WITH REFLEX TO T4, FREEo n 12-31-2024 TSH 1.900 ???IU/mL Invalid Interpretation Code 0.300-4.200 [facility] Comment on above: Order Comment: Relea se to patient->Automatic Result Comment: Dave fied By: [id number] COMPLETE BLOOD COUNT WITH DI FFERENTIALon 12-30-2024 Erythrocyte distribution width (RBC) [Ratio] 12.1 % Invalid Interpretation Code 11.9-14.8 [facility] Comment on above: Order Comment: Relea se to patient->Automatic Hematocrit (Bld) [Volume fraction] 26.2 % Low 35.5-44.6 [facility] Comment on above: Order Comment: Relea se to patient->Automatic Hemoglobin (Bld) [Mass/Vol] 9.6 g/dL Low 11.4-14.8 [facility] Comment on above: Order Comment: Relea se to patient->Automatic Immature granulocytes/100 WBC (Bld) 0.9 % High 0.2-0.5 [facility] Comment on above: Order Comment: Relea se to patient->Automatic Result Comment: Nhung ture Granulocyte Percent includes promyelocytes, myelocytes,and metamyelocytes. IG% > 1.0 indicates a left shift is present. With automated differentials, bands are included in the neutrophil count and not in the Immature Granulocyte Percent. MCH (RBC) [Entitic mass] 33.3 pg High 25.7-31.2 [facility] Comment on above: Order Comment: Relea se to patient->Automatic MCHC 36.6 % High 31.3-34.0 [facility] Comment on above: Order Comment: Relea se to patient->Automatic MCV (RBC) [Entitic vol] 91.0 fL Invalid Interpretation Code 80.7-93.7 [facility] Comment on above: Order Comment: Relea se to patient->Automatic Nucleated RBC/100 WBC (Bld) [Ratio] 0.0 % Invalid Interpretation Code 0.0-0.0 [facility] Comment on above: Order Comment: Relea se to patient->Automatic Platelet mean volume (Bld) [Entitic vol] 10.4 fL Invalid Interpretation Code 9.6-11.9 [facility] Comment on above: Order Comment: Relea se to patient->Automatic Platelets 295 10E3/???L Invalid Interpretation Code 150-400 [facility] Comment on above: Order Comment: Relea se to patient->Automatic RBC 2.88 10E6/???L Low 4.03-4.91 [facility] Comment on above: Order Comment: Relea se to patient->Automatic WBC 5.7 10E3/???L Invalid Interpretation Code 4.9-10.0 [facility] Comment on above: Order Comment: Relea se to patient->Automatic COPPER, SERUMon 12-30-2024 Copper, Serum 136 mcg/dL Invalid Interpretation Code 77-206 [facility] Comment on above: Order Comment: Relea se to patient->Automatic Result Comment: ADDITIONAL INFORMATION This test was developed and its performance characteristics determined by [facility] in a manner consistent with CLIA requirements. This test has not been cleared or approved by the U.[place]. Food and Drug Administration. Test Performed by: [facility] [place] [address] Janitorial Services Supervisor: Reilly Crump Ph.D.; CLIA# [id number] FOLATEon 12-30-2024 Folate 18.9 ng/mL Invalid Interpretation Code >=4.8 [facility] Comment on above: Order Comment: Relea se to patient->Automatic Result Comment: Refe rence interval: > or = 4.8 ng/mL Folate Invalid Interpretation Code [facility] Comment on above: Order Comment: Relea se to patient->Automatic Result Comment: Resu lt not available. Quantity not sufficient for testing. GLUCOSE BY METERon Glucose [Mass/Vol] 273 mg/dL High 70-99 [facility] Comment on above: Order Comment: Relea se to patient->Automatic Glucose [Mass/Vol] 293 mg/dL High 70 [facility] Comment on above: Order Comment: Relea se to patient->Automatic Glucose [Mass/Vol] 322 mg/dL High [facility] Comment on above: Order Comment: Relea se to patient->Automatic Glucose [Mass/Vol] 211 mg/dL High [facility] Comment on above: Order Comment: Relea se to patient->Automatic Glucose [Mass/Vol] 114 mg/dL High [facility] Comment on above: Order Comment: Relea se to patient->Automatic MANUAL DIFFERENTIALon 2024 Absolute Lymphocyte No. 1.88 10E3/???L Invalid Interpretation Code 1.51-2.99 [facility] Comment on above: Order Comment: Relea se to patient->Automatic Absolute Monocyte No. 0.40 10E3/???L Invalid Interpretation Code 0.36-0.77 [facility] Comment on above: Order Comment: Relea se to patient->Automatic Absolute Neutrophil Count 3.42 10E3/???L Invalid Interpretation Code 2.43-6.42 [facility] Comment on above: Order Comment: Relea se to patient->Automatic Anisocytosis Slight Invalid Interpretation Code [facility] Comment on above: Order Comment: Relea se to patient->Automatic Atypical Lymphocytes 3 % Invalid Interpretation Code 0-8 [facility] Comment on above: Order Comment: Relea se to patient->Automatic Band Neutrophils 8 % Invalid Interpretation Code 5-11 [facility] Comment on above: Order Comment: Relea se to patient->Automatic Lymphocytes 30.0 % Invalid Interpretation Code 21.8-42.1 [facility] Comment on above: Order Comment: Relea se to patient->Automatic Metamyelocytes 0 % Invalid Interpretation Code 0-0 [facility] Comment on above: Order Comment: Relea se to patient->Automatic Monocytes 7.0 % Invalid Interpretation Code 5.6-10.2 [facility] Comment on above: Order Comment: Relea se to patient->Automatic Myelocytes 0 % Invalid Interpretation Code 0-0 [facility] Comment on above: Order Comment: Relea se to patient->Automatic Poikilocytosis Occasional Invalid Interpretation Code [facility] Comment on above: Order Comment: Relea se to patient->Automatic Segmented Neutrophils 52.0 % Invalid Interpretation Code 46.0-68.6 [facility] Comment on above: Order Comment: Relea se to patient->Automatic OSMOLALITY, SERUMon 12-31-19 Osmolality [Osmolality] 278 mosm/kg Invalid Interpretation Code 275-295 [facility] Comment on above: Order Comment: Relea se to patient->Automatic RENAL FUNCTION PANELon 12-30 Albumin [Mass/Vol] 2.8 g/dL Low 3.4-4.8 [facility] Comment on above: Order Comment: Relea se to patient->Automatic Calcium [Mass/Vol] 8.2 mg/dL Invalid Interpretation Code 7.6-11.0 [facility] Comment on above: Order Comment: Relea se to patient->Automatic Chloride [Moles/Vol] 90 mmol/L Low 96-108 [facility] Comment on above: Order Comment: Relea se to patient->Automatic CO2 [Moles/Vol] 20.1 mmol/L Low 22.0-29.0 [facility] Comment on above: Order Comment: Relea se to patient->Automatic Creatinine [Mass/Vol] 1.10 mg/dL High 0.50-1.00 [facility] Comment on above: Order Comment: Relea se to patient->Automatic eGFR 50 mL/min/1.73 m2 Low >=60 [facility] Comment on above: Order Comment: Relea se to patient->Automatic Glucose [Mass/Vol] 213 mg/dL High 70-99 [facility] Comment on above: Order Comment: Relea se to patient->Automatic Result Comment: Delfina choi for Diagnosis of Diabetes: Fasting Specimen (no caloric intake for at least 8 hours): <100 mg/dL Normal 100-125 mg/dL Increased risk for Diabetes >125 mg/dL Diagnostic for Diabetes Random Glucose (any time of day without regard to last meal): > or = 200 mg/dL plus Classic Symptoms of Diabetes Phosphate [Mass/Vol] 2.2 mg/dL Low 2.7-4.5 [facility] Comment on above: Order Comment: Relea se to patient->Automatic Potassium [Moles/Vol] 3.7 mmol/L Invalid Interpretation Code 3.3-5.1 [facility] Comment on above: Order Comment: Relea se to patient->Automatic Sodium [Moles/Vol] 122 mmol/L Critically low 133-145 [facility] Comment on above: Order Comment: Relea se to patient->Automatic Result Comment: This result was previously suppressed from the chart. Urea nitrogen [Mass/Vol] 39 mg/dL High 4-19 [facility] Comment on above: Order Comment: Relea se to patient->Automatic Albumin [Mass/Vol] 3.0 g/dL Low 3.4-4.8 [facility] Comment on above: Order Comment: Relea se to patient->Automatic Result Comment: Veri fied By: [id number] Calcium [Mass/Vol] 8.5 mg/dL Invalid Interpretation Code 7.6-11.0 [facility] Comment on above: Order Comment: Relea se to patient->Automatic Result Comment: Veri fied By: [id number] Chloride [Moles/Vol] 88 mmol/L Low 96-108 [facility] Comment on above: Order Comment: Relea se to patient->Automatic Result Comment: Veri fied By: [id number] CO2 [Moles/Vol] 20.1 mmol/L Low 22.0-29.0 [facility] Comment on above: Order Comment: Relea se to patient->Automatic Result Comment: Veri fied By: [id number] Creatinine [Mass/Vol] 1.31 mg/dL High 0.50-1.00 [facility] Comment on above: Order Comment: Relea se to patient->Automatic Result Comment: Veri fied By: [id number] eGFR 41 mL/min/1.73 m2 Low >=60 [facility] Comment on above: Order Comment: Relea se to patient->Automatic Glucose [Mass/Vol] 338 mg/dL High 70-99 [facility] Comment on above: Order Comment: Relea se to patient->Automatic Result Comment: Delfina choi for Diagnosis of Diabetes: Fasting Specimen (no caloric intake for at least 8 hours): <100 mg/dL Normal 100-125 mg/dL Increased risk for Diabetes >125 mg/dL Diagnostic for Diabetes Random Glucose (any time of day without regard to last meal): > or = 200 mg/dL plus Classic Symptoms of Diabetes Verified By: [id number] Phosphate [Mass/Vol] 2.9 mg/dL Invalid Interpretation Code 2.7-4.5 [facility] Comment on above: Order Comment: Relea se to patient->Automatic Result Comment: Veri fied By: [id number] Potassium [Moles/Vol] 4.5 mmol/L Invalid Interpretation Code 3.3-5.1 [facility] Comment on above: Order Comment: Relea se to patient->Automatic Result Comment: Hemo lysis detected. Results may be falsely elevated. Interpret results with caution. Verified By: [id number] Sodium [Moles/Vol] 121 mmol/L Critically low 133-145 [facility] Comment on above: Order Comment: Relea se to patient->Automatic Result Comment: Veri fied By: [id number] This result was previously suppressed from the chart. Urea nitrogen [Mass/Vol] 46 mg/dL High 4-19 [facility] Comment on above: Order Comment: Relea se to patient->Automatic Result Comment: Veri fied By: [id number] Albumin [Mass/Vol] 2.8 g/dL Low 3.4-4.8 [facility] Comment on above: Order Comment: Relea se to patient->Automatic Result Comment: Veri fied By: [id number] Calcium [Mass/Vol] 8.3 mg/dL Invalid Interpretation Code 7.6-11.0 [facility] Comment on above: Order Comment: Relea se to patient->Automatic Result Comment: Veri fied By: [id number] Chloride [Moles/Vol] 89 mmol/L Low 96-108 [facility] Comment on above: Order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 (Bld)Ordered By: Ellyn Bailey on 09-03-2024 Immature granulocytes/100 WBC (Bld) 0.400 % 0.0-0.9 [facility] Comment on above: IG% - Immature Granu locytes (promyelocytes, myelocytes and metamyelocytes) > 1% indicates that a LEFT SHIFT is Present. Laboratory - Chemistry and C hemistry - challengeOrdered By: Ellyn Bailey on 09-03-2024 AST [Catalytic activity/Vol] 22 U/L 15-37 [facility] MCV (mean corpuscular volume ) determinationOrdered By: Ellyn Bailey on 09-03-2024 MCV (RBC) [Entitic vol] 93.5 fL 81-99 [facility] Magnesiumon 09-03-2024 Magnesium [Mass/Vol] 2.1 mg/dL Normal 1.6-2.6 [facility] Comment on above: Performed By: #### L 100.0100, L500.4050, L501.5200, L501.9520, L501.9985 #### [facility] [address] [place], [address] Magnesium measurementOrdered By: Ellyn Bailey on 09-03-2024 Magnesium [Mass/Vol] 2.1 mg/dL 1.6-2.6 [facility] Mean corpuscular hemoglobin (MCH) determinationOrdered By: Ellyn Bailey on 09-03-2024 MCH (RBC) [Entitic mass] 32.5 pg High 27.0-32.0 [facility] Mean corpuscular hemoglobin concentration (MCHC) determinationOrdered By: Ellyn Bailey on 09-03-2024 MCHC (RBC) [Mass/Vol] 34.7 g/dL 32-36 [facility] Mean platelet volume determi nationOrdered By: Ellyn Bailey on 09-03-2024 Platelet mean volume (Bld) [Entitic vol] 11.2 fL 6.2-12.0 [facility] Monocyte percentageOrdered B y: Ellyn Bailey on 09-03-2024 Monocytes/100 WBC (Bld) 7.2 % 0-10 [facility] Neutrophil percentageOrdered By: Ellyn Bailey on 09-03-2024 Neutrophils/100 WBC (Bld) 63.1 % 47-70 [facility] Nucleated red blood cell per centageOrdered By: Ellyn Bailey on 01-24-2025 Nucleated RBC/100 WBC (Bld) [Ratio] 0 % 0-5 [facility] Platelet countOrdered By: Abimbola Bailey on 09-03-2024 Platelets (Bld) [#/Vol] 298 10*3/uL 150-450 [facility] Potassium measurementOrdered By: Ellyn Bailey on 09-03-2024 Potassium [Moles/Vol] 3.8 mmol/L 3.5-5.1 [facility] RBC Auto (Bld) [#/Vol]Ordere d By: Ellyn Bailey on 09-03-2024 RBC (Bld) [#/Vol] 4.03 10*6/uL Low 4.2-5.4 [facility] Serum anion gap measurementO rdered By: Ellyn Bailey on 09-03-2024 Anion gap [Moles/Vol] 6 mmol/L 5-15 [facility] Serum globulin measurementOr dered By: Elyln Bailey on 09-03-2024 Globulin (S) [Mass/Vol] 3.6 g/dL 2.2-4.2 [facility] Serum or plasma alanine pastor otransferase (ALT) measurementOrdered By: Ellyn Bailey on 09-03-2024 ALT [Catalytic activity/Vol] 26 U/L 13-56 [facility] Serum or plasma albumin luis e urement (mass/volume)Ordered By: Ellyn Bailey on 09-03-2024 Albumin [Mass/Vol] 3.8 g/dL 3.2-5.0 [facility] Serum or plasma alkaline christy sphatase measurementOrdered By: Ellyn Bailey on 09-03-2024 ALP [Catalytic activity/Vol] 87 U/L 45-117 [facility] Serum or plasma calcium luis e urement (mass/volume)Ordered By: Ellyn Bailey on 09-03-2024 Calcium [Mass/Vol] 9.8 mg/dL 8.5-10.1 [facility] Serum or plasma creatinine m easurement (mass/volume)Ordered By: Ellyn Bailey on 09-03-2024 Creatinine [Mass/Vol] 1.06 mg/dL High 0.55-1.02 [facility] Comment on above: The validity of the calculated GFR & GFRAA in patients over 70 years has not been determined. Clinical correlation is essential. Serum or plasma thyroid stim ulating hormone (TSH) measurement (units/volume)Ordered By: Ellyn Bailey on 09-03-2024 TSH Qn 3.290 uIU/mL 0.358-3.740 [facility] Serum or plasma urea nitroge n measurement (mass/volume)Ordered By: Ellyn Bailey on 09-03-2024 Urea nitrogen [Mass/Vol] 19 mg/dL High 7-18 [facility] Sodium levelOrdered By: Libia Bailey on 09-03-2024 Sodium [Moles/Vol] 136 mmol/L 136-145 [facility] Thyroid Stim Hormone (TSH)on 09-03-2024 TSH 3.290 uIU/mL Normal 0.358-3.740 [facility] Comment on above: Performed By: #### L 100.0100, L500.4050, L501.5200, L501.9520, L501.9985 #### [facility] [address] [place], [address] Total proteinOrdered By: Jessica Bailey on 09-03-2024 Protein [Mass/Vol] 7.4 g/dL 6.4-8.2 [facility] White blood cell (WBC) count Ordered By: Ellyn Bailey on 09-03-2024 WBC (Bld) [#/Vol] 5.4 10*3/uL 4.4-11.0 [facility] MR/BMS.[facility] 06-23-2024 MR/BMS.[facility] [address] [place] [address] OFFICE VISIT Date of Service: 06/23/24 MR#: [id number] Acct: [id number] Name: PETRA DEL VALLE Rep #: [id number] : 1940 Provider: Dr. Ellyn lara MD Age/Sex: 84/F Location: [facility] Status: Signed Intake Vital Signs 10/20/23 14:30 06/23/24 10:13 Height 5 ft 4 in 5 ft 4 in Weight: 129 lb 8 oz BMI 22.2 BP 153/77 H Blood Pressure Location Lt brachial Position Sitting Respiration 16 Pulse 62 Pulse Source Monitor Temp 97.8 F Temp Source Temporal Pulse Oximetry (%) 95 Oxygen Delivery Method room air Intake Visit Reasons: Head fog, sore throat, stomach pain Chief Complaint: head fog, sore throat, stomach pain Internet [employer] Consultant Required: No Accompanied by: Self Is patient in pain?: No Allergies niacin Allergy (Unknown, Verified 06/23/24 10:05) Unknown pneumococcal vaccine (From Pneumovax ) Allergy (Verified 06/23/24 10:05) Unknown Medications ???Medication ???Instructions ???Recorded ???Confirmed ???Type multivitamin 1 ea PO DAILY 03/04/19 06/23/24 History vitamin E mixed 400 unit tablet 800 unit PO DAILY 03/04/19 06/23/24 History apple cider vinegar PO 09/26/22 06/23/24 History ascorbic acid (vitamin C) 1,000 mg 1 g PO DAILY 09/26/22 06/23/24 History capsule b complex PO 09/26/22 06/23/24 History cinnamon PO 1XD 09/26/22 06/23/24 History lung bronchial PO 1XD 09/26/22 06/23/24 History magnesium PO 09/26/22 06/23/24 History omega-3 fatty acids 1,000 mg 1,000 mg PO DAILY 09/26/22 06/23/24 History capsule potassium gluconate 595 mg (99 mg) 595 mg PO DAILY 09/26/22 06/23/24 History tablet probiotic PO 1XD 09/26/22 06/23/24 History vitamin b12 sublingual 1XD 09/26/22 06/23/24 History zinc PO 1XD 09/26/22 06/23/24 History aspirin 81 mg chewable tablet 81 mg PO DAILY 08/13/23 06/23/24 History blood pressure monitor #1 ea 08/25/23 06/23/24 Rx amlodipine 5 mg tablet 5 mg PO BID #180 tabs 09/17/23 06/23/24 Rx melatonin 3 mg capsule 3 mg PO HS PRN 10/20/23 06/23/24 History lisinopril 20 1 tab PO DAILY #90 tabs 11/06/23 06/23/24 Rx mg-hydrochlorothiazi de 12.5 mg tablet azithromycin 250 mg tablet See Rx Instructions PO .COMPLEX #6 06/23/24 06/23/24 Rx tabs Have you fallen in the past year?: No PFSH Medical History (Updated 06/23/24 @ 10:[address] Ellyn Bailey MD) Acute URI High calcium levels Acid reflux Blood in stool Diarrhea Nausea Abdominal pain SOB (shortness of breath) Anxiety Depression Arthritis Fatigue Surgical History Hx of tonsillectomy Hx of tubal ligation Hx of cataract surgery Family History Sister Diabetes Father Prostate cancer Son Asthma Alcoholism Arthritis Social History adopted: No household members: children housing: house current occupational status: retired leisure activities: other history of recent travel: No sexually active: No Smoking Status: Never smoker second hand exposure: No alcohol intake: never substance use type: does not use well-balanced diet: daily or most days caffeine: Yes eating out: rarely or never during the past year weight has: remained stable what type of physical activity do you participate in: none frequency: does not exercise phyllis/sabianist: Gnosticist seatbelt use: always do you feel safe at home: Yes HPI HPI Chief Complaint: head fog, sore throat, stomach pain Details: PETRA DEL VALLE, is a 84 F who presents to the office today for an acute care follow-up visit. She has a history of hypertension on HCTZ, lisinopril and amlodipine as per the chart. She presented today with acute URI, over the last week or so. Head pressure, congestion, drainage down the back of the throat. Not necessarily bothering the ears. She did have low-grade fevers, tired and fatigued. She did not test for COVID at home. Son has similar illness at this point in time. She states she is actually a little bit better the last 24 to 48 hours then she was but still, fair amount of symptoms as above. She also notes that her blood sugars have been somewhat elevated, 150- 170s, in the morning. She does not test other times of the day. She has had similar readings in the past and is still had a reasonable A1c. Her last A1c was 7.0 in August. She has been reluctant to take any type of medication as a general rule and certainly is not interested in diabetes medicines. She does take a number of supplements as per the chart including cinnamon. Review of systems per chart. No chest pain, chest pressure. Little sense of tightness that she attributes to the URI, inter (more content not included)... Normal [facility] Absolute lymphocyte countOrd ered By: Ellyn Bailey on 08-13-2023 Lymphocytes Auto (Unsp spec) [#/Vol] 1.45 10*3/uL 0.83-4.51 [facility] Basophil percentageOrdered B y: Ellyn Bailey on 08-13-2023 Basophils/100 WBC (Bld) 0.8 % 0-1 [facility] Bilirubin [Mass/Vol] 0.80 mg/dL 0.20-1.00 [facility] Comment on above: For patients on eltr ombopag therapy, use of Dimension [place] TBIL is not recommended. Chloride [Moles/Vol] 108 mmol/L 98-107 [facility] Eosinophils/100 WBC (Bld) 1.0 % 0-5 [facility] Glucose [Mass/Vol] 156 mg/dL 74-106 [facility] Comment on above: Fasting Glucose resu lt greater than or equal to 126 mg/dL suggests DIABETES MELLITUS per A.D.A. criteria. Neutrophils (Bld) [#/Vol] 3.3 10*3/uL 2.0-7.7 [facility] Neutrophils/100 WBC (Bld) 63.2 % 47-70 [facility] Potassium [Moles/Vol] 4.1 mmol/L 3.5-5.1 [facility] Protein [Mass/Vol] 7.3 g/dL 6.4-8.2 [facility] Sodium [Moles/Vol] 143 mmol/L 136-145 [facility] WBC (Bld) [#/Vol] 5.2 10*3/uL 4.4-11.0 [facility] Blood erythrocytes count (nu mber/volume)Ordered By: Ellyn Bailey on 08-13-2023 RBC (Bld) [#/Vol] 4.27 10*6/uL 4.2-5.4 [facility] Blood hemoglobin measurement (mass/volume)Ordered By: Ellyn Bailey on 08-13-2023 Hemoglobin (Bld) [Mass/Vol] 13.7 g/dL 12.0-15.0 [facility] Blood lymphocytes/100 leukoc ytesOrdered By: Ellyn Bailey on 08-13-2023 Lymphocytes/100 WBC (Bld) 27.7 % 19-41 [facility] Blood monocytes/100 leukocyt esOrdered By: Ellyn Bailey on 08-13-2023 Monocytes/100 WBC (Bld) 6.9 % 0-10 [facility] Blood platelet mean volumeOr dered By: Ellyn Bailey on 08-13-2023 Platelet mean volume (Bld) [Entitic vol] 10.4 fL 6.2-12.0 [facility] Determination of erythrocyte mean corpuscular volume (MCV)Ordered By: Ellyn Bailey on 08-13-2023 MCV (RBC) [Entitic vol] 96.0 fL 81-99 [facility] Hematocrit Auto (Bld) [Volum e fraction]Ordered By: Ellyn Bailey on 08-13-2023 Hematocrit (Bld) [Volume fraction] 41.0 % 37-47 [facility] - Chemistry and C hemistry - challengeOrdered By: Ellyn Bailey on 08-13-2023 ALP [Catalytic activity/Vol] 96 U/L 45-117 [facility] ALT [Catalytic activity/Vol] 23 U/L 13-56 [facility] CO2 [Moles/Vol] 27.0 mmol/L 21.0-32.0 [facility] Free T4 [Mass/Vol] 0.86 ng/dL 0.76-1.46 [facility] Globulin (S) [Mass/Vol] 3.5 g/dL 2.2-4.2 [facility] Urea nitrogen/Creatinine [Mass ratio] 19.3 mg/mg 10-20 [facility] - Hematology and Cell countsOrdered By: Ellyn Bailey on 08-13-2023 Erythrocyte distribution width (RBC) [Entitic vol] 42.9 fL 35.1-43.9 [facility] Erythrocyte distribution width (RBC) [Ratio] 12.2 % 11.6-14.6 [facility] Immature granulocytes/100 WBC (Bld) 0.400 % 0.0-0.9 [facility] Comment on above: IG% - Immature Granu locytes (promyelocytes, myelocytes and metamyelocytes) > 1% indicates that a LEFT SHIFT is Present. MCH (RBC) [Entitic mass] 32.1 pg 27.0-32.0 [facility] Nucleated RBC/100 WBC (Bld) [Ratio] 0 % 0-5 [facility] MCHC Auto (RBC) [Mass/Vol]Or dered By: Ellyn Bailey on 08-13-2023 MCHC (RBC) [Mass/Vol] 33.4 g/dL 32-36 [facility] No Panel InformationOrdered By: Ellyn Bailey on 08-13-2023 Estimated GFR (MDRD) Amer 85 mL/min >60 [facility] Comment on above: GFR Calc Estimated GFR (MDRD) Non-Af Amer 70 mL/min >60 [facility] Comment on above: Non- GFR Calc Free Triiodothyronine (T3) pg/dL 2.3 pg/mL 2.18-3.98 [facility] Thyroid Stimulating Hormone (TSH) 3.72 uIU/mL 0.358-3.74 [facility] Vitamin D 25-Hydroxy 44.6 ng/mL [facility] Comment on above: Vitamin D 25(OH) Sta tus Range Deficiency <20 ng/mL (50nmol/L) Insufficiency 20 - 30 ng/mL (50 - 75 nmol/L) Sufficiency 30 - 100 ng/mL (75 - 250 nmol/L) Toxicity >100 ng/mL (>250 nmol/L) Platelets bldOrdered By: Jessica Bailey on 08-13-2023 Platelets (Bld) [#/Vol] 263 10*3/uL 150-450 [facility] Serum or plasma albumin luis e urement (mass/volume)Ordered By: Ellyn Bailey on 08-13-2023 Albumin [Mass/Vol] 3.8 g/dL 3.2-5.0 [facility] Serum or plasma albumin/glob ulin mass ratioOrdered By: Ellyn Bailey on 08-13-2023 Albumin/Globulin [Mass ratio] 1.1 {ratio} 0.9-2.4 [facility] Serum or plasma calcium luis e urement (mass/volume)Ordered By: Ellyn Bailey on 08-13-2023 Calcium [Mass/Vol] 8.7 mg/dL 8.5-10.1 [facility] Serum or plasma creatinine m easurement (mass/volume)Ordered By: Ellyn Bailey on 08-13-2023 Creatinine [Mass/Vol] 0.83 mg/dL 0.55-1.02 [facility] Comment on above: The validity of the calculated GFR & GFRAA in patients over 70 years has not been determined. Clinical correlation is essential. Serum or plasma urea nitroge n measurement (mass/volume)Ordered By: Ellyn Bailey on 08-13-2023 Urea nitrogen [Mass/Vol] 16 mg/dL 7-18 [facility] Thin prep Papanicolaou smear with manual screeningOrdered By: Ellyn Bailey on 08-13-2023 Thin prep Papanicolaou smear with manual screening 19 U/L 15-37 [facility] Thin prep Papanicolaou smear with manual screening 8 5-15 [facility] Whole blood hemoglobin A1c/t otal hemoglobin ratio (mass fraction)Ordered By: Ellyn Bailey on 08-13-2023 HbA1c (Bld) [Mass fraction] 7.0 % 3.8-5.6 [facility] Comment on above: Normal < 5.7 % Predi abetic 5.7 - 6.4 % Diabetic >or= 6.5 % Please note range changes. Absolute lymphocyte countOrd ered By: Dr. Bailey on 10-15-2022 Lymphocytes Auto (Unsp spec) [#/Vol] 2.01 10*3/uL 0.83-4.51 [facility] Basophil percentageOrdered B y: Dr. Bailey on 10-15-2022 Basophils/100 WBC (Bld) 0.7 % 0-1 [facility] Bilirubin [Mass/Vol] 0.70 mg/dL 0.20-1.00 [facility] Comment on above: For patients on eltr ombopag therapy, use of Dimension [place] TBIL is not recommended. Chloride [Moles/Vol] 103 mmol/L 98-107 [facility] Cholesterol [Mass/Vol] 264 mg/dL <200 [facility] Comment on above: <200 mg/dL Desirable 200-240 mg/dL Borderline >240 mg/dL High Risk Eosinophils/100 WBC (Bld) 1.5 % 0-5 [facility] Glucose [Mass/Vol] 284 mg/dL 74-106 [facility] Comment on above: Glucose result great er than or equal to 200 mg/dLsuggests DIABETES MELLITUS per A.D.A. criteria. Neutrophils (Bld) [#/Vol] 3.4 10*3/uL 2.0-7.7 [facility] Neutrophils/100 WBC (Bld) 56.9 % 47-70 [facility] Potassium [Moles/Vol] 4.0 mmol/L 3.5-5.1 [facility] Protein [Mass/Vol] 7.1 g/dL 6.4-8.2 [facility] Sodium [Moles/Vol] 138 mmol/L 136-145 [facility] Triglyceride [Mass/Vol] 164 mg/dL <199 [facility] Comment on above: The drugs N-Acetylcy steine and Metamizole may falsely depress this assay.Serum Triglycerides Reference Interval Normal <150 mg/dL Borderline high 150 - 199 mg/dL High 200 - 499 mg/dL Very High > or = 500 mg/dL WBC (Bld) [#/Vol] 5.9 10*3/uL 4.4-11.0 [facility] Blood erythrocytes count (nu mber/volume)Ordered By: Dr. Bailey on 10-15-2022 RBC (Bld) [#/Vol] 4.46 10*6/uL 4.2-5.4 [facility] Blood hemoglobin measurement (mass/volume)Ordered By: Dr. Bailey on 10-15-2022 Hemoglobin (Bld) [Mass/Vol] 14.5 g/dL 12.0-15.0 [facility] Blood lymphocytes/100 leukoc ytesOrdered By: Dr. Bailey on 10-15-2022 Lymphocytes/100 WBC (Bld) 34.1 % 19-41 [facility] Blood monocytes/100 leukocyt esOrdered By: Dr. Bailey on 10-15-2022 Monocytes/100 WBC (Bld) 6.6 % 0-10 [facility] Blood platelet mean volumeOr dered By: Dr. Bailey on 10-15-2022 Platelet mean volume (Bld) [Entitic vol] 11.2 fL 6.2-12.0 [facility] Determination of erythrocyte mean corpuscular volume (MCV)Ordered By: Dr. Bailey on 10-15-2022 MCV (RBC) [Entitic vol] 94.2 fL 81-99 [facility] Hematocrit Auto (Bld) [Volum e fraction]Ordered By: Dr. Bailey on 10-15-2022 Hematocrit (Bld) [Volume fraction] 42.0 % 37-47 [facility] Laboratory - Chemistry and C hemistry - challengeOrdered By: Dr. Bailey on 10-15-2022 ALP [Catalytic activity/Vol] 124 U/L 45-117 [facility] ALT [Catalytic activity/Vol] 24 U/L 13-56 [facility] CO2 [Moles/Vol] 27.0 mmol/L 21.0-32.0 [facility] Globulin (S) [Mass/Vol] 3.5 g/dL 2.2-4.2 [facility] Urea nitrogen/Creatinine [Mass ratio] 18.6 mg/mg 10-20 [facility] - Hematology and Cell countsOrdered By: Dr. Bailey on 10-15-2022 Erythrocyte distribution width (RBC) [Entitic vol] 42.9 fL 35.1-43.9 [facility] Erythrocyte distribution width (RBC) [Ratio] 12.3 % 11.6-14.6 [facility] Immature granulocytes/100 WBC (Bld) 0.200 % 0.0-0.9 [facility] Comment on above: IG% - Immature Granu locytes (promyelocytes, myelocytes and metamyelocytes) > 1% indicates that a LEFT SHIFT is Present. MCH (RBC) [Entitic mass] 32.5 pg 27.0-32.0 [facility] Nucleated RBC/100 WBC (Bld) [Ratio] 0 % 0[facility]5 [facility] [Mass/Vol]Or dered By: Dr. Bailey on 10-15-2022 MCHC (RBC) [Mass/Vol] 34.5 g/dL 32-36 [facility] No Panel InformationOrdered By: Dr. Bailey on 10-15-2022 Estimated GFR (MDRD) Amer 81 mL/min >60 [facility] Comment on above: GFR Calc Estimated GFR (MDRD) Non-Af Amer 67 mL/min >60 [facility] Comment on above: Non- GFR Calc Thyroid Stimulating Hormone (TSH) 5.44 uIU/mL 0.358-3.74 [facility] Vitamin D 25-Hydroxy 26.1 ng/mL [facility] Comment on above: Vitamin D 25(OH) Sta tus Range Deficiency <20 ng/mL (50nmol/L) Insufficiency 20 - 30 ng/mL (50 - 75 nmol/L) Sufficiency 30 - 100 ng/mL (75 - 250 nmol/L) Toxicity >100 ng/mL (>250 nmol/L) Platelets bldOrdered By: Dr. Bailey on 10-15-2022 Platelets (Bld) [#/Vol] 228 10*3/uL 150-450 [facility] Serum or plasma albumin luis e urement (mass/volume)Ordered By: Dr. Bailey on 10-15-2022 Albumin [Mass/Vol] 3.6 g/dL 3.2-5.0 [facility] Serum or plasma albumin/glob ulin mass ratioOrdered By: Dr. Bailey on 10-15-2022 Albumin/Globulin [Mass ratio] 1.0 {ratio} 0.9-2.4 [facility] Serum or plasma calcium luis e urement (mass/volume)Ordered By: Dr. Bailey on 10-15-2022 Calcium [Mass/Vol] 9.1 mg/dL 8.5-10.1 [facility] Serum or plasma cholesterol in HDL measurement (mass/volume)Ordered By: Dr. Bailey on 10-15-2022 Cholesterol in HDL [Mass/Vol] 81 mg/dL >40 [facility] Comment on above: The drugs N-Acetylcy steine and Metamizole may falsely depress this assay. Reference Range HDL <40 mg/dL Low HDL Cholesterol HDL >or= 60 mg/dL High HDL Cholesterol Serum or plasma cholesterol in VLDL measurement (mass/volume)Ordered By: Dr. Bailey on 10-15-2022 Cholesterol in VLDL [Mass/Vol] 33 mg/dL 5-40 [facility] Serum or plasma creatinine m easurement (mass/volume)Ordered By: Dr. Bailey on 10-15-2022 Creatinine [Mass/Vol] 0.86 mg/dL 0.55-1.02 [facility] Comment on above: The validity of the calculated GFR & GFRAA in patients over 70 years has not been determined. Clinical correlation is essential. Serum or plasma low density lipoprotein (LDL) cholesterol measurement (mass/volume)Ordered By: Dr. Bailey on 10-15-2022 Cholesterol in LDL [Mass/Vol] 150 mg/dL 0-130 [facility] Serum or plasma urea nitroge n measurement (mass/volume)Ordered By: Dr. Bailey on 10-15-2022 Urea nitrogen [Mass/Vol] 16 mg/dL 7-18 [facility] Thin prep Papanicolaou smear with manual screeningOrdered By: Dr. Bailey on 10-15-2022 Thin prep Papanicolaou smear with manual screening 15 U/L 15-37 [facility] Thin prep Papanicolaou smear with manual screening 8 5-15 [facility] Whole blood hemoglobin A1c/t otal hemoglobin ratio (mass fraction)Ordered By: Dr. Bailey on 10-15-2022 HbA1c (Bld) [Mass fraction] 10.0 % 3.8-5.6 [facility] Comment on above: Normal < 5.7 % Predi abetic 5.7 - 6.4 % Diabetic >or= 6.5 % Please note range changes. XR CHEST 1 VIEWon 08-22-2022 XR CHEST 1 VIEW ORIGINAL EXAMINATION: ONE XRAY VIEW OF THE [...] Sign Date: 08/22/2022 8:22:00 PM Ordering Provider: DEMETRA BRUNO On License Of [facility] Vital Signs Date Time Vital Sign Value Performing Clinician Facility 12-29-2024 12:01-0400 Body temperature 96.8 [degF] Genaro Thompson PA-C Work Phone: [facility] 12-29-2024 12:01-0400 Body weight 62.8 kg Genaro Thompson PA-C Work Phone: [facility] 12-29-2024 12:01-0400 Diastolic blood pressure 61 mm[Hg] Genaro BRITT-C Work Phone: [facility] 12-29-2024 12:01-0400 Heart rate 88 /min Genaro BRITT-C Work Phone: [facility] 12-29-2024 12:01-0400 Respiratory rate 16 /min Genaro BRITT-C Work Phone: [facility] 12-29-2024 12:01-0400 SaO2% (BldA) [Mass fraction] 95 % Genaro BRITT-C Work Phone: [facility] 12-29-2024 12:01-0400 Systolic blood pressure 127 mm[Hg] Genaro Thompson PA-C Work Phone: [facility] 12-27-2024 13:00-0400 Body temperature 96.8 [degF] Genaro Thompson PA-C Work Phone: [facility] 12-27-2024 13:00-0400 Body weight 62.7 kg Genaro Jay PA-C Work Phone: [facility] 12-27-2024 13:00-0400 Diastolic blood pressure 80 mm[Hg] Genaro Parlin PA-C Work Phone: [facility] 12-27-2024 13:00-0400 Heart rate 88 /min Genarokeven Bradenan PA-C Work Phone: [facility] 12-27-2024 13:00-0400 Systolic blood pressure 178 mm[Hg] Genaro Parlin PA-C Work Phone: [facility] 12-23-2024 23:44-0400 Body temperature 97.8 [degF] Dr. Ellyn Bailey MD Work Phone: [facility] 12-23-2024 23:44-0400 Diastolic blood pressure 73 mm[Hg] Dr. Ellyn Bailey MD Work Phone: [facility] 12-23-2024 23:44-0400 Heart rate 72 /min Dr. Ellyn Bailey MD Work Phone: [facility] 12-23-2024 23:44-0400 Respiratory rate 18 /min Dr. Ellyn Bailey MD Work Phone: [facility] 12-23-2024 23:44-0400 SaO2% (BldA) [Mass fraction] 97 % Dr. Ellyn Bailey MD Work Phone: [facility] 12-23-2024 23:44-0400 Systolic blood pressure 141 mm[Hg] Dr. Ellyn Bailey MD Work Phone: [facility] 12-23-2024 20:20-0400 Body height 162.[address] Ellyn Bailey MD Work Phone: [facility] 12-23-2024 20:20-0400 Body mass index (BMI) [Ratio] 23.8 kg/m2 Dr. Ellyn Bailey MD Work Phone: [facility] 12-23-2024 20:20-0400 Body weight 62.[address] Ellyn Bailey MD Work Phone: [facility] 12-10-2024 14:07-0400 Body height 162.[address] Ellyn Bailey MD Work Phone: [facility] 12-10-2024 14:07-0400 Body mass index (BMI) [Ratio] 23.3 kg/m2 Dr. Ellyn Bailey MD Work Phone: [facility] 12-10-2024 14:07-0400 Body weight 61.[address] Ellyn Bailey MD Work Phone: [facility] 12-10-2024 14:07-0400 Diastolic blood pressure 58 mm[Hg] Dr. Ellyn Bailey MD Work Phone: [facility] 12-10-2024 14:07-0400 Heart rate 73 /min Dr. Ellyn Bailey MD Work Phone: [facility] 12-10-2024 14:07-0400 Respiratory rate 18 /min Dr. Ellyn Bailey MD Work Phone: [facility] 12-10-2024 14:07-0400 Systolic blood pressure 101 mm[Hg] Dr. Ellyn Bailey MD Work Phone: [facility] 10-20-2023 14:30-0400 Body height 162.[address] Ellyn Bailey Work Phone: [facility] 10-20-2023 14:30-0400 Body mass index (BMI) [Ratio] 21.7 kg/m2 Dr. Ellyn Bailey Work Phone: [facility] 10-20-2023 14:30-0400 Body weight 57.[address] Ellyn Bailey Work Phone: [facility] 10-20-2023 14:30-0400 Diastolic blood pressure 70 mm[Hg] Dr. Ellyn Bailey Work Phone: [facility] 10-20-2023 14:30-0400 Heart rate 70 /min Dr. Ellyn Bailey Work Phone: [facility] 10-20-2023 14:30-0400 Respiratory rate 18 /min Dr. Ellyn Bailey Work Phone: [facility] 10-20-2023 14:30-0400 Systolic blood pressure 148 mm[Hg] Dr. Ellyn Bailey Work Phone: [facility] 08-13-2023 09:03-0500 Body height 162.[address] Ellyn Bailey Work Phone: [facility] 08-13-2023 09:03-0500 Body mass index (BMI) [Ratio] 22 kg/m2 Dr. Ellyn Bailey Work Phone: [facility] 08-13-2023 09:03-0500 Body temperature 97.4 [degF] Dr. Ellyn Bailey Work Phone: [facility] 08-13-2023 09:03-0500 Body weight 58.[address] Ellyn Bailey Work Phone: [facility] 08-13-2023 09:03-0500 Diastolic blood pressure 72 mm[Hg] Dr. Ellyn Bailey Work Phone: [facility] 08-13-2023 09:03-0500 Heart rate 66 /min Dr. Ellyn Bailey Work Phone: [facility] 08-13-2023 09:03-0500 Respiratory rate 16 /min Dr. Ellyn Bailey Work Phone: [facility] 08-13-2023 09:03-0500 SaO2% (BldA) [Mass fraction] 95 % Dr. Ellyn Bailey Work Phone: [facility] 08-13-2023 09:03-0500 Systolic blood pressure 160 mm[Hg] Dr. Ellyn Bailey Work Phone: [facility] 09-26-2022 13:35-0500 Body temperature 97.1 [degF] Dr. Silvestre Jeong Work Phone: [facility] 09-26-2022 13:35-0500 Body weight 59.[address] Silvestre Jeong Work Phone: [facility] 09-26-2022 13:35-0500 Diastolic blood pressure 78 mm[Hg] Dr. Silvestre Jeong Work Phone: [facility] 09-26-2022 13:35-0500 Heart rate 83 /min Dr. Silvestre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 Provider Active Team Status: Inactive Member Role Status Dates Dr. Ellyn Bailey MD Primary Care Provider Active Dr. Sergio Lopez MD Attending Provider, Referring Provider Active Team Status: Active Member Role Status Dates Dr. Ellyn Bailey MD Primary Care Provider Active Team Status: Inactive Member Role Status Dates Dr. Ellyn Bailey MD Primary Care Provider Active Start: September 03, 2024 End: September 03, 2024 Dr. Ellyn Bailey MD Attending Provider Active Start: September 03, 2024 End: September 03, 2024 Dr. Ellyn Bailey MD Referring Provider Active Start: September 03, 2024 End: September 03, 2024 Team Status: Inactive Member Role Status Dates Dr. Ellyn Bailey MD Primary Care Provider Active Start: December 10, 2024 End: December 10, 2024 Dr. Ellyn Bailey MD Referring Provider Active Start: December 10, 2024 End: December 10, 2024 Polly BRITT, PA Attending Provider Active Start: December 10, 2024 End: December 10, 2024 Team Status: Inactive Member Role Status Dates Dr. Ellyn Bailey MD Primary Care Provider Active Start: December 10, 2024 End: December 10, 2024 Polly Amezcua PA, PA Attending Provider Active Start: December 10, 2024 End: December 10, 2024 Polly Amezcua PA, PA Referring Provider Active Start: December 10, 2024 End: December 10, 2024 Team Status: Active Member Role Status Dates Dr. Ellyn Bailey MD Primary Care Provider Active Start: December 22, 2024 BALWINDER Solomon Attending Provider Active Start: December 22, 2024 BALWINDER Solomon Referring Provider Active Start: December 22, 2024 Team Status: Active Member Role Status Dates Dr. Ellyn Bailey MD Primary Care Provider Active Start: December 22, 2024 Dr. Wilbur Trujillo MD Attending Provider Active S tart: December 22, 2024 Team Status: Inactive Member Role Status Dates Dr. Ellyn Bailey MD Primary Care Provider Active Start: December 23, 2024 End: December 23, 2024 Dr. Tejas Mcdonald DO Emergency Provider Active Start: December 23, 2024 End: December 23, 2024 Team Status: Inactive Member Role Status Dates Dr. Ellyn Bailey MD Primary Care Provider Active Start: December 22, 2024 End: December 22, 2024 BALWINDER Solomon Attending Provider Active Start: December 22, 2024 End: December 22, 2024 BALWINDER Solomon Referring Provider Active Start: December 22, 2024 End: December 22, 2024 Team Status: Inactive Member Role Status Dates Dr. Ellyn Bailey MD Primary Care Provider Active Start: December 23, 2024 End: December 23, 2024 Dr. Tejas Mcdonald DO Attending Provider Active Start: December 23, 2024 End: December 23, 2024 Dr. Tejas Mcdonald DO Emergency Provider Active Start: December 23, 2024 End: December 23, 2024 Goals (unrecognized section and content) Goals may be documented in a n alternate section Reason for Visit (unrecogniz ed section and content) Reason Comments Burn FOR RECORDS PERTAINING TO PATIENTS WHO ARE [...] BE BASED ON THE PRIMARY CLINICAL RECORDS. [facility] provides no warranty or guarantee of the accuracy or completeness of information in this document.
[2025-01-15 10:53] VITALS: BP 139/55; PULSE 83; RESP 16; TEMP 37.1; O2SAT 98
[2025-01-15] MEDS: Acetaminophen 325 MG Tablet 650 MG PO ×2 (11:42→20:23)
[2025-01-15] MEDS: Ensure Plus High Protein 120 ML LIQUID PO ×3 (12:39→20:21)
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
[2025-01-15] MEDS: oxyCODONE 5 MG Tablet PO ×2 (13:17→20:20)
[2025-01-15] MEDS: Senna/Docusate Sodium 1 Tablet PO (20:22)
[2025-01-15] MEDS: Calcium Carb/Vitamin D 1 TABLET Tablet PO (20:22)
[2025-01-15] MEDS: MELATONIN 3 MG TABLET PO (20:23)
[2025-01-15] MEDS: Insulin Glargine-YFGN 100 UNIT/ML Pen 25 UNIT SC (20:24)
[2025-01-15] MEDS: Menthol/Lanolin/Calamine/Znox 113 GM Tube 1 APPLIC TOPICAL (20:34)
[2025-01-15 20:45] LABS: Bedside Glucose 221 mg/dL (74-106)
[2025-01-15 21:25] LABS: Bedside Glucose 206 mg/dL (74-106)
[2025-01-16] MEDS: oxyCODONE 5 MG Tablet PO ×3 (02:32→22:32)
[2025-01-16 02:57] VITALS: PULSE 78; RESP 18; O2SAT 97
[2025-01-16 05:58] LABS: Absolute Lymphocyte Count 1.64 X10^3/uL (0.83-4.51); Basophil# 0.05 X10^3/uL; Basophil% 0.6 % (0-1); Eosinophil# 0.06 X10^3/uL; Eosinophils% 0.7 % (0-5); Hematocrit 29.7 % (37-47); Lymphocyte # 1.64 X10^3/ul (0.83-4.51); Lymphocyte % 19.3 % (19-41); Mean Corp Hgb Conc 33.7 g/dL (32-36); Mean Corpuscular Hgb 31.9 pg (27.0-32.0); Mean Corpuscular Volume 94.9 fL (81-99); Mean Platelet Vol. 8.8 fl (6.2-12.0); Monocyte# 0.73 X10^3/uL; Monocyte% 8.6 % (0-10); NRBC Flagged by Analyzer 0 % (0-5); Neutrophil % 70.7 % (47-70); POSITIVE COUNT YES; RBC Distribution Width CV 13.2 % (11.6-14.6); RBC Distribution Width SD 45.8 fl (35.1-43.9); Red Blood Count 3.13 M/mm3 (4.2-5.4); White Blood Count 8.5 K/mm3 (4.4-11.0)
[2025-01-16 06:01] LABS: Differential Indicated SCAN CRITERIA MET; Platelet Count 874 K/mm3 (150-450)
[2025-01-16 06:22] LABS: Anion Gap 12 (5-15); BUN 23 mg/dL (4-19); BUN/Creat Ratio 30.8 RATIO (10-20); Calcium,Total 9.3 mg/dL (7.6-11.0); Carbon Dioxide 23.9 mmol/L (21.0-32.0); Chloride 96 mmol/L (98-108); Creatinine, Serum 0.74 mg/dL (0.70-1.20); EST Glomerular Filtration Rate 80 (>60); Estimated Creatinine Clearance 46.01 ml/min (50-250); Glucose 152 mg/dL (70-99); Potassium 4.5 mmol/L (3.3-5.1); Sodium Level 131 mmol/L (133-145)
[2025-01-16 06:24] LABS: Bedside Glucose 139 mg/dL (74-106)
[2025-01-16] MEDS: Ensure Plus High Protein 120 ML LIQUID PO (06:24)
[2025-01-16] MEDS: Acetaminophen 325 MG Tablet 650 MG PO ×3 (06:24→22:34)
[2025-01-16 06:31] LABS: Platelet Estimate MKD INC (ADEQ)
[2025-01-16 08:43] VITALS: BP 125/57; PULSE 88; RESP 17; TEMP 36.6; O2SAT 99
[2025-01-16] MEDS: Aspirin 81 MG TAB.CHEW PO (08:44)
[2025-01-16] MEDS: amLODIPine 5 MG Tablet PO (08:45)
[2025-01-16] MEDS: Lisinopril 20 MG Tablet PO (08:45)
[2025-01-16] MEDS: Calcium Carb/Vitamin D 1 TABLET Tablet PO ×2 (08:45→22:34)
[2025-01-16] MEDS: hydroCHLOROthiazide 12.5mg 12.5 MG PO (08:45)
[2025-01-16] MEDS: Senna/Docusate Sodium 1 Tablet PO ×2 (08:45→22:34)
[2025-01-16] MEDS: Menthol/Lanolin/Calamine/Znox 113 GM Tube 1 APPLIC TOPICAL ×2 (08:47→22:32)
[2025-01-16] MEDS: Enoxaparin 40 MG/0.4 ML Syringe SC (09:34)
[2025-01-16] MEDS: Tuberculin,Purif.prot.deriv. 50 TU/ML Vial 0.1 ML ID (10:34)
--- NOTE | 2025-01-16 11:24 | NURSING ---
Addendum entered by Andreea Blackwell 01/16/25 11:34: also updated on elevated PLT 874. no new orders, d/t inflammation from irving. 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 new order for oxyir 5 mg scheduled at HS. dr zamorano stated pt gets goofy with use of too much oxyir per [facility] reports. ok for alarm if needed.
[2025-01-16 14:21] LABS: Cholesterol 186 mg/dL (<=200); High Density Lipoprotein 76 mg/dL; Low Density Lipoprotein Calc. 86 mg/dL; Triglycerides 122 mg/dL; Very Low Density Lipoprotein 24 mg/dL (5-40); cholesterol:hdl ratio screen 2.46
[2025-01-16 21:26] LABS: Bedside Glucose 230 mg/dL (74-106)
[2025-01-16] MEDS: MELATONIN 3 MG TABLET PO (22:34)
[2025-01-16] MEDS: Insulin Glargine-YFGN 100 UNIT/ML Pen 25 UNIT SC (22:34)
[2025-01-17] MEDS: oxyCODONE 5 MG Tablet PO ×3 (01:44→21:19)
[2025-01-17] MEDS: Acetaminophen 325 MG Tablet 650 MG PO ×3 (05:45→21:19)
[2025-01-17 07:52] LABS: Hemoglobin A1c 7.4 % (<=5.6)
[2025-01-17 08:04] LABS: Bedside Glucose 106 mg/dL (74-106)
[2025-01-17] MEDS: hydroCHLOROthiazide 12.5mg 12.5 MG PO (08:37)
[2025-01-17] MEDS: Aspirin 81 MG TAB.CHEW PO (08:37)
[2025-01-17] MEDS: amLODIPine 5 MG Tablet PO (08:37)
[2025-01-17] MEDS: Calcium Carb/Vitamin D 1 TABLET Tablet PO ×2 (08:37→21:13)
[2025-01-17] MEDS: Menthol/Lanolin/Calamine/Znox 113 GM Tube 1 APPLIC TOPICAL ×2 (08:38→21:13)
[2025-01-17] MEDS: Lisinopril 20 MG Tablet PO (08:38)
[2025-01-17] MEDS: Enoxaparin 40 MG/0.4 ML Syringe SC (08:38)
[2025-01-17] MEDS: Senna/Docusate Sodium 1 Tablet PO ×2 (08:38→21:14)
[2025-01-17 08:44] VITALS: BP 106/50; PULSE 77; RESP 14; TEMP 36.3; O2SAT 96
[2025-01-17 10:00] VITALS: PULSE 82; RESP 16; O2SAT 98
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
--- NOTE | 2025-01-17 10:07 | NURSING ---
Patient alert and oriented. Alarms no longer needed. Patient states she will utilize call light and wait for staff to assist with transfers.
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
--- NOTE | 2025-01-17 11:45 | NURSING ---
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 She enjoys outside, reading, tv and being w/family. Staff will encourage social activities, remind her of weekly activities and respect her right to say No.
--- NOTE | 2025-01-17 12:16 | NURSING ---
Offered covid vaccine, VIS provided. Resident declines.
[2025-01-17] MEDS: Insulin Glargine-YFGN 100 UNIT/ML Pen 25 UNIT SC (21:12)
[2025-01-17] MEDS: MELATONIN 3 MG TABLET PO (21:13)
[2025-01-17 21:44] LABS: Bedside Glucose 236 mg/dL (74-106)
[2025-01-18] MEDS: oxyCODONE 5 MG Tablet PO (03:36)
--- NOTE | 2025-01-18 05:04 | NURSING ---
PATIENT C/O PERSISTENT PAIN THROUGHOUT THIS SHIFT. PATIENT ALSO SLEPT VERY LITTLE, COMMUNICATION WITH . NOTIFIED RN.
[2025-01-18] MEDS: Acetaminophen 325 MG Tablet 650 MG PO (05:55)
[2025-01-18 06:34] LABS: Bedside Glucose 91 mg/dL (74-106)
[2025-01-18 07:45] VITALS: PULSE 87; RESP 16; O2SAT 97
[2025-01-18 10:12] VITALS: BP 112/42; PULSE 86; RESP 16; TEMP 36.4; O2SAT 98
[2025-01-18] MEDS: Aspirin 81 MG TAB.CHEW PO (10:15)
[2025-01-18] MEDS: hydroCHLOROthiazide 12.5mg 12.5 MG PO (10:16)
[2025-01-18] MEDS: Menthol/Lanolin/Calamine/Znox 113 GM Tube 1 APPLIC TOPICAL ×2 (10:16→21:32)
[2025-01-18] MEDS: Calcium Carb/Vitamin D 1 TABLET Tablet PO ×2 (10:17→21:31)
[2025-01-18] MEDS: amLODIPine 5 MG Tablet PO (10:17)
[2025-01-18] MEDS: Senna/Docusate Sodium 1 Tablet PO ×2 (10:17→21:31)
[2025-01-18] MEDS: Lisinopril 20 MG Tablet PO (10:18)
[2025-01-18] MEDS: Enoxaparin 40 MG/0.4 ML Syringe SC (10:19)
--- NOTE | 2025-01-18 11:33 | CASEMGMT ---
Social Work SW met with pt and dgt Sonia and assessment completed. Pt agreeable to complete assessment with Sonia present. Contacts were validated. SW requested dgt bring in copy of HCPOA and Living Will. Pt confirms that code status is DNRCC. Pt educated to [facility] medicare benefit and that NRD is 6/12 and continued stay is not guaranteed. Pt was independent with all ADLs and IADLs prior to hospitalization and plans to return to this level at time of discharge. Pt's son Darinel lives in the basement and pt lives on the first floor. Darinel works third shift, but would be available to assist as needed. Pt's two dgts also live locally and are able to assist as needed. SW to continue to follow for discharge planning. ADIN Valencia
[2025-01-18 12:14] LABS: Bedside Glucose 172 mg/dL (74-106)
[2025-01-18 14:33] VITALS: BMI 23.8
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
[2025-01-18] MEDS: Acetaminophen 500 MG Tablet 1000 MG PO ×2 (14:57→21:35)
--- NOTE | 2025-01-18 15:06 | NURSING ---
pt removed tubigrip from rt arm, pt refusing to reapply. skin pink/dry flaky. no other orders for oil were sent with pt. pt reported they were placing oil on skin at [facility].
--- NOTE | 2025-01-18 15:14 | NURSING ---
foot splints placed on Bilat feet at this time, will remove at 1900.
--- NOTE | 2025-01-18 15:46 | CHAPLAIN ---
Type of Pastoral Visit ___ Initial Visit ___ Follow-up Visit ___ On-call Visit ___ General Patient Visit ___ Spiritual Assessment ___ Family Conference ___ Bereavement ___ Rapid Response ___ Code Blue ___ Other (describe below) Pastoral Care Referral From ___ Patient ___ Family ___ Nurse ___ Physician ___ Master Motorcycle Technician ___ Industrial Commercial Groundskeeper ___ Other (describe below) Sacrament/Intervention ___ Active listening ___ Anointing ___ Zoroastrianism ___ Bereavement ___ Communion ___ Phyllis exploration ___ ___ Life review ___ Prayer ___ Reconciliation ___ Sacrament of Sick ___ Supportive presence ___ Wedding ___ Other (describe below) Pastoral Comments patient was sound asleep when visit attempted
[2025-01-18] MEDS: oxyCODONE 5 MG Tablet 10 MG PO ×2 (15:58→21:30)
[2025-01-18 21:28] LABS: Bedside Glucose 251 mg/dL (74-106)
[2025-01-18] MEDS: MELATONIN 3 MG TABLET PO (21:31)
[2025-01-18] MEDS: Insulin Glargine-YFGN 100 UNIT/ML Pen 25 UNIT SC (21:31)
[2025-01-19] MEDS: Acetaminophen 500 MG Tablet 1000 MG PO ×3 (05:26→21:49)
[2025-01-19 06:27] LABS: Bedside Glucose 150 mg/dL (74-106)
[2025-01-19] MEDS: Enoxaparin 40 MG/0.4 ML Syringe SC (09:58)
[2025-01-19] MEDS: hydroCHLOROthiazide 12.5mg 12.5 MG PO (09:58)
[2025-01-19] MEDS: Aspirin 81 MG TAB.CHEW PO (09:58)
[2025-01-19] MEDS: Lisinopril 20 MG Tablet PO (09:59)
[2025-01-19] MEDS: Calcium Carb/Vitamin D 1 TABLET Tablet PO ×2 (09:59→21:49)
[2025-01-19] MEDS: amLODIPine 5 MG Tablet PO (09:59)
[2025-01-19] MEDS: Senna/Docusate Sodium 1 Tablet PO ×2 (09:59→21:49)
[2025-01-19] MEDS: Menthol/Lanolin/Calamine/Znox 113 GM Tube 1 APPLIC TOPICAL ×2 (09:59→22:00)
[2025-01-19 10:00] VITALS: BP 112/47; PULSE 81; PULSE 90; RESP 16; TEMP 36.2; O2SAT 96; O2SAT 98
[2025-01-19] MEDS: oxyCODONE 5 MG Tablet 10 MG PO ×2 (13:01→21:49)
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
--- NOTE | 2025-01-19 15:40 | CHAPLAIN ---
Type of Pastoral Visit _x__ Initial Visit ___ Follow-up Visit ___ On-call Visit ___ General Patient Visit ___ Spiritual Assessment ___ Family Conference ___ Bereavement ___ Rapid Response ___ Code Blue ___ Other (describe below) Pastoral Care Referral From _x__ Patient ___ Family ___ Nurse ___ Physician ___ Nursing Faculty ___ Hides And Skins Colorer ___ Other (describe below) Sacrament/Intervention _x__ Active listening ___ Anointing ___ Church ___ Bereavement ___ Communion ___ Phyllis exploration ___ ___ Life review ___ Prayer ___ Reconciliation ___ Sacrament of Sick _x__ Supportive presence ___ Wedding ___ Other (describe below) Pastoral Comments patient and two daughters are in the room; pt had just finished the care conference with the TCU team; pt presents self as optimistic and without worries; pt looks good and is alert; pt denies any needs
[2025-01-19 21:44] LABS: Bedside Glucose 223 mg/dL (74-106)
[2025-01-19] MEDS: MELATONIN 3 MG TABLET PO (21:49)
[2025-01-19] MEDS: Insulin Glargine-YFGN 100 UNIT/ML Pen 25 UNIT SC (21:49)
[2025-01-20] MEDS: oxyCODONE 5 MG Tablet 10 MG PO ×2 (01:09→22:15)
[2025-01-20] MEDS: Acetaminophen 500 MG Tablet 1000 MG PO ×3 (06:23→22:15)
[2025-01-20 06:28] LABS: Bedside Glucose 94 mg/dL (74-106)
[2025-01-20 06:55] VITALS: PULSE 75; RESP 16; O2SAT 98
[2025-01-20 08:40] VITALS: BP 121/45; PULSE 75; RESP 16; TEMP 36.5; O2SAT 97
[2025-01-20] MEDS: Aspirin 81 MG TAB.CHEW PO (08:42)
[2025-01-20] MEDS: Menthol/Lanolin/Calamine/Znox 113 GM Tube 1 APPLIC TOPICAL ×2 (08:42→22:20)
[2025-01-20] MEDS: Enoxaparin 40 MG/0.4 ML Syringe SC (08:43)
[2025-01-20] MEDS: hydroCHLOROthiazide 12.5mg 12.5 MG PO (08:43)
[2025-01-20] MEDS: Calcium Carb/Vitamin D 1 TABLET Tablet PO ×2 (08:44→22:15)
[2025-01-20] MEDS: amLODIPine 5 MG Tablet PO (08:44)
[2025-01-20] MEDS: Senna/Docusate Sodium 1 Tablet PO ×2 (08:44→22:15)
[2025-01-20] MEDS: Lisinopril 20 MG Tablet PO (08:45)
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
[2025-01-20] MEDS: MELATONIN 3 MG TABLET PO (22:15)
[2025-01-20] MEDS: Insulin Glargine-YFGN 100 UNIT/ML Pen 25 UNIT SC (22:15)
[2025-01-20 22:25] LABS: Bedside Glucose 187 mg/dL (74-106)
[2025-01-21] MEDS: Acetaminophen 500 MG Tablet 1000 MG PO ×3 (05:13→22:07)
[2025-01-21] MEDS: oxyCODONE 5 MG Tablet 10 MG PO ×2 (05:13→22:07)
[2025-01-21 05:46] LABS: Basophil# 0.04 X10^3/uL; Basophil% 0.5 % (0-1); Eosinophil# 0.13 X10^3/uL; Eosinophils% 1.6 % (0-5); Hemoglobin 9.3 g/dL (12.0-15.0); Lymphocyte % 15.7 % (19-41); Mean Corp Hgb Conc 33.2 g/dL (32-36); Mean Corpuscular Hgb 31.6 pg (27.0-32.0); Mean Corpuscular Volume 95.2 fL (81-99); Mean Platelet Vol. 8.8 fl (6.2-12.0); Monocyte# 0.77 X10^3/uL; Monocyte% 9.3 % (0-10); NRBC Flagged by Analyzer 0 % (0-5); Neutrophil # 6.01 X10^3/uL (2.7-7.7); Neutrophil % 72.5 % (47-70); Platelet Count 541 K/mm3 (150-450); RBC Distribution Width CV 13.2 % (11.6-14.6); Red Blood Count 2.94 M/mm3 (4.2-5.4); White Blood Count 8.3 K/mm3 (4.4-11.0)
[2025-01-21 06:33] LABS: Anion Gap 12 (5-15); BUN 24 mg/dL (4-19); BUN/Creat Ratio 33.1 RATIO (10-20); Calcium,Total 9.5 mg/dL (7.6-11.0); Chloride 98 mmol/L (98-108); Creatinine, Serum 0.73 mg/dL (0.70-1.20); EST Glomerular Filtration Rate 81 (>60); Estimated Creatinine Clearance 46.01 ml/min (50-250); Glucose 87 mg/dL (70-99); Potassium 4.3 mmol/L (3.3-5.1); Sodium Level 134 mmol/L (133-145)
[2025-01-21 06:37] LABS: Bedside Glucose 115 mg/dL (74-106)
[2025-01-21 08:31] VITALS: BP 136/58; PULSE 78; RESP 18; TEMP 36.1; O2SAT 96
[2025-01-21] MEDS: Menthol/Lanolin/Calamine/Znox 113 GM Tube 1 APPLIC TOPICAL ×2 (08:33→22:07)
[2025-01-21] MEDS: Enoxaparin 40 MG/0.4 ML Syringe SC (08:33)
[2025-01-21] MEDS: Aspirin 81 MG TAB.CHEW PO (08:33)
[2025-01-21] MEDS: hydroCHLOROthiazide 12.5mg 12.5 MG PO (08:34)
[2025-01-21] MEDS: Senna/Docusate Sodium 1 Tablet PO ×2 (08:34→22:07)
[2025-01-21] MEDS: amLODIPine 2.5 MG Tablet PO (08:34)
[2025-01-21] MEDS: Calcium Carb/Vitamin D 1 TABLET Tablet PO ×2 (08:34→22:06)
[2025-01-21] MEDS: Lisinopril 20 MG Tablet PO (08:34)
--- NOTE | 2025-01-21 12:13 | MDS.RN ---
Pain assessment for MDS complete.
[2025-01-21] MEDS: morphine (oral solution) 10MG/0.5ML Syringe 20 MG SL/PO (13:04)
--- NOTE | 2025-01-21 15:18 | WOUNDNOTE ---
wound photo: right lower leg
--- NOTE | 2025-01-21 15:19 | WOUNDNOTE ---
wound photo: right dorsal foot/lower leg
--- NOTE | 2025-01-21 15:20 | WOUNDNOTE ---
wound photo: right lower leg
--- NOTE | 2025-01-21 15:21 | WOUNDNOTE ---
wound photo: right thigh
--- NOTE | 2025-01-21 15:21 | WOUNDNOTE ---
wound photo: right thigh
--- NOTE | 2025-01-21 15:22 | WOUNDNOTE ---
wound photo: left thigh
--- NOTE | 2025-01-21 15:23 | WOUNDNOTE ---
wound photo: left thigh
--- NOTE | 2025-01-21 15:24 | WOUNDNOTE ---
wound photo: left lower leg
--- NOTE | 2025-01-21 15:24 | WOUNDNOTE ---
wound photo: left leg
[2025-01-21 21:45] LABS: Bedside Glucose 191 mg/dL (74-106)
[2025-01-21] MEDS: Insulin Glargine-YFGN 100 UNIT/ML Pen 25 UNIT SC (22:04)
[2025-01-21] MEDS: MELATONIN 3 MG TABLET PO (22:06)
[2025-01-22 06:13] LABS: Bedside Glucose 108 mg/dL (74-106)
[2025-01-22] MEDS: Acetaminophen 500 MG Tablet 1000 MG PO ×3 (06:21→22:15)
[2025-01-22] MEDS: amLODIPine 2.5 MG Tablet PO (08:45)
[2025-01-22] MEDS: Aspirin 81 MG TAB.CHEW PO (08:45)
[2025-01-22] MEDS: Lisinopril 20 MG Tablet PO (08:45)
[2025-01-22] MEDS: Enoxaparin 40 MG/0.4 ML Syringe SC (08:45)
[2025-01-22] MEDS: Senna/Docusate Sodium 1 Tablet PO ×2 (08:45→22:15)
[2025-01-22] MEDS: Calcium Carb/Vitamin D 1 TABLET Tablet PO ×2 (08:45→22:14)
[2025-01-22] MEDS: hydroCHLOROthiazide 12.5mg 12.5 MG PO (08:46)
[2025-01-22] MEDS: Menthol/Lanolin/Calamine/Znox 113 GM Tube 1 APPLIC TOPICAL ×2 (08:57→22:21)
[2025-01-22] MEDS: oxyCODONE 5 MG Tablet 10 MG PO ×2 (13:16→22:11)
[2025-01-22 15:36] VITALS: TEMP 36.2
[2025-01-22 21:19] LABS: Bedside Glucose 217 mg/dL (74-106)
[2025-01-22] MEDS: Insulin Glargine-YFGN 100 UNIT/ML Pen 25 UNIT SC (22:13)
[2025-01-22] MEDS: MELATONIN 3 MG TABLET PO (22:14)
[2025-01-23] MEDS: Acetaminophen 500 MG Tablet 1000 MG PO ×3 (06:26→21:36)
[2025-01-23 06:30] LABS: Bedside Glucose 102 mg/dL (74-106)
[2025-01-23 08:51] VITALS: BP 125/55; PULSE 87; RESP 18; TEMP 36.3; O2SAT 98
[2025-01-23] MEDS: Aspirin 81 MG TAB.CHEW PO (08:53)
[2025-01-23] MEDS: hydroCHLOROthiazide 12.5mg 12.5 MG PO (08:56)
[2025-01-23] MEDS: Enoxaparin 40 MG/0.4 ML Syringe SC (08:56)
[2025-01-23] MEDS: Menthol/Lanolin/Calamine/Znox 113 GM Tube 1 APPLIC TOPICAL ×2 (08:56→21:34)
[2025-01-23] MEDS: Senna/Docusate Sodium 1 Tablet PO ×2 (08:57→21:35)
[2025-01-23] MEDS: amLODIPine 2.5 MG Tablet PO (08:57)
[2025-01-23] MEDS: Lisinopril 20 MG Tablet PO (08:57)
[2025-01-23] MEDS: Calcium Carb/Vitamin D 1 TABLET Tablet PO ×2 (08:57→21:35)
[2025-01-23] MEDS: Tuberculin,Purif.prot.deriv. 50 TU/ML Vial 0.1 ML ID (11:14)
[2025-01-23] MEDS: oxyCODONE 5 MG Tablet 10 MG PO ×2 (14:56→21:34)
[2025-01-23] MEDS: MELATONIN 3 MG TABLET PO (21:35)
[2025-01-23] MEDS: Insulin Glargine-YFGN 100 UNIT/ML Pen 25 UNIT SC (21:37)
[2025-01-23 21:43] LABS: Bedside Glucose 233 mg/dL (74-106)
[2025-01-24] MEDS: Acetaminophen 500 MG Tablet 1000 MG PO ×3 (04:26→20:25)
[2025-01-24 06:22] LABS: Bedside Glucose 126 mg/dL (74-106)
[2025-01-24] MEDS: Senna/Docusate Sodium 1 Tablet PO ×2 (08:29→20:25)
[2025-01-24] MEDS: Lisinopril 20 MG Tablet PO (08:29)
[2025-01-24] MEDS: Calcium Carb/Vitamin D 1 TABLET Tablet PO ×2 (08:29→20:24)
[2025-01-24] MEDS: Aspirin 81 MG TAB.CHEW PO (08:30)
[2025-01-24] MEDS: amLODIPine 2.5 MG Tablet PO (08:30)
[2025-01-24] MEDS: Enoxaparin 40 MG/0.4 ML Syringe SC (08:30)
[2025-01-24] MEDS: hydroCHLOROthiazide 12.5mg 12.5 MG PO (08:31)
[2025-01-24] MEDS: oxyCODONE 5 MG Tablet PO (08:43)
[2025-01-24] MEDS: Menthol/Lanolin/Calamine/Znox 113 GM Tube 1 APPLIC TOPICAL ×2 (08:48→20:24)
--- NOTE | 2025-01-24 08:48 | NURSING ---
Cloth Bleaching Supervisor Note; MDS for 01/22/2025 Complete
[2025-01-24 10:00] VITALS: BP 137/62; PULSE 89; RESP 16; TEMP 36.3; O2SAT 97
--- NOTE | 2025-01-24 13:55 | WOUNDNOTE ---
Dressings and BRIDGETT wraps intact to bilateral legs. dressings are to remain D&I until next follow up on 01/31/25.
[2025-01-24] MEDS: MELATONIN 3 MG TABLET PO (20:24)
[2025-01-24] MEDS: oxyCODONE 5 MG Tablet 10 MG PO (20:25)
[2025-01-24 21:38] LABS: Bedside Glucose 208 mg/dL (74-106)
[2025-01-24] MEDS: Insulin Glargine-YFGN 100 UNIT/ML Pen 25 UNIT SC (22:09)
[2025-01-25] MEDS: oxyCODONE 5 MG Tablet PO ×2 (04:59→11:24)
[2025-01-25] MEDS: Acetaminophen 500 MG Tablet 1000 MG PO ×3 (05:00→20:48)
[2025-01-25 06:14] LABS: Bedside Glucose 119 mg/dL (74-106)
[2025-01-25 06:44] VITALS: PULSE 90; RESP 16; O2SAT 99
[2025-01-25] MEDS: Enoxaparin 40 MG/0.4 ML Syringe SC (09:44)
[2025-01-25] MEDS: hydroCHLOROthiazide 12.5mg 12.5 MG PO (09:44)
[2025-01-25] MEDS: Aspirin 81 MG TAB.CHEW PO (09:44)
[2025-01-25] MEDS: amLODIPine 2.5 MG Tablet PO (09:45)
[2025-01-25] MEDS: Menthol/Lanolin/Calamine/Znox 113 GM Tube 1 APPLIC TOPICAL ×2 (09:45→20:43)
[2025-01-25] MEDS: Lisinopril 20 MG Tablet PO (09:45)
[2025-01-25] MEDS: Senna/Docusate Sodium 1 Tablet PO ×2 (09:45→20:45)
[2025-01-25] MEDS: Calcium Carb/Vitamin D 1 TABLET Tablet PO ×2 (09:45→20:44)
[2025-01-25 09:50] VITALS: BP 107/48; PULSE 86; RESP 16; TEMP 36.4; O2SAT 97
[2025-01-25 10:25] VITALS: BMI 24.5
[2025-01-25] MEDS: Insulin Glargine-YFGN 100 UNIT/ML Pen 25 UNIT SC (20:42)
[2025-01-25] MEDS: MELATONIN 3 MG TABLET PO (20:44)
[2025-01-25] MEDS: oxyCODONE 5 MG Tablet 10 MG PO (20:48)
[2025-01-25 21:02] LABS: Bedside Glucose 224 mg/dL (74-106)
[2025-01-26] MEDS: Acetaminophen 500 MG Tablet 1000 MG PO ×3 (06:06→21:17)
[2025-01-26] MEDS: oxyCODONE 5 MG Tablet PO ×2 (06:08→17:14)
[2025-01-26 06:34] LABS: Bedside Glucose 139 mg/dL (74-106)
[2025-01-26] MEDS: Senna/Docusate Sodium 1 Tablet PO ×2 (09:34→21:17)
[2025-01-26] MEDS: Aspirin 81 MG TAB.CHEW PO (09:34)
[2025-01-26] MEDS: Calcium Carb/Vitamin D 1 TABLET Tablet PO ×2 (09:34→21:17)
[2025-01-26] MEDS: Menthol/Lanolin/Calamine/Znox 113 GM Tube 1 APPLIC TOPICAL ×2 (09:35→21:19)
--- NOTE | 2025-01-26 10:05 | MDS.RN ---
Information for the MDS was obtained from review of the clinical record, interview of resident, staff, and direct observation of resident?s care.
[2025-01-26 10:52] LABS: Absolute Neutrophil Count 5.7 X10^3/uL (2.0-7.7); Basophil# 0.02 X10^3/uL; Basophil% 0.3 % (0-1); Eosinophil# 0.11 X10^3/uL; Eosinophils% 1.5 % (0-5); Hematocrit 23.9 % (37-47); Hemoglobin 7.9 g/dL (12.0-15.0); Lymphocyte % 12.4 % (19-41); Mean Corp Hgb Conc 33.1 g/dL (32-36); Mean Corpuscular Volume 96.8 fL (81-99); Mean Platelet Vol. 9.2 fl (6.2-12.0); Monocyte# 0.52 X10^3/uL; Monocyte% 7.2 % (0-10); NRBC Flagged by Analyzer 0 % (0-5); Neutrophil # 5.66 X10^3/uL (2.7-7.7); Neutrophil % 78.3 % (47-70); Platelet Count 368 K/mm3 (150-450); RBC Distribution Width CV 13.3 % (11.6-14.6); RBC Distribution Width SD 47.3 fl (35.1-43.9); Red Blood Count 2.47 M/mm3 (4.2-5.4); White Blood Count 7.2 K/mm3 (4.4-11.0)
[2025-01-26] MEDS: Lisinopril 20 MG Tablet PO (10:53)
[2025-01-26] MEDS: hydroCHLOROthiazide 12.5mg 12.5 MG PO (10:53)
[2025-01-26] MEDS: amLODIPine 2.5 MG Tablet PO (10:53)
[2025-01-26 10:55] VITALS: BP 110/47; PULSE 91; RESP 16; TEMP 36.2; O2SAT 95
[2025-01-26 13:02] LABS: Pathologist Review Reviewed
--- NOTE | 2025-01-26 17:08 | CASEMGMT ---
Social Work Insurance issued a NOMNC with last covered day 01/28 and dc 01/29. SW met with pt and explained NOMNC and right to appeal. Pt is somewhat nervous about return home. After much discussion pt choosing not to appeal and will discharge on Friday. Pt is agreeable to [facility] PT/SN. Pt will follow up with physician on Friday at [facility] for dressing changes. With pt permission, phone call to pt dgt Sonia and update provided. Sonia is agreeable with dc home and states that family will provide additional care in the home as needed. Sonia is able to transport pt home. Pt has needed DME. SW to follow to arranged for [facility]. Discharge Date: 01/29 Discharge Disposition: Home with son, family support. Home Health Care Pt/SN ADIN Valencia
[2025-01-26] MEDS: oxyCODONE 5 MG Tablet 10 MG PO (21:17)
[2025-01-26] MEDS: MELATONIN 3 MG TABLET PO (21:17)
[2025-01-26] MEDS: Insulin Glargine-YFGN 100 UNIT/ML Pen 25 UNIT SC (21:18)
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
[2025-01-26 22:00] VITALS: RESP 16
[2025-01-26 22:52] LABS: Bedside Glucose 192 mg/dL (74-106)
[2025-01-27] MEDS: oxyCODONE 5 MG Tablet PO ×2 (04:37→10:45)
[2025-01-27] MEDS: Acetaminophen 500 MG Tablet 1000 MG PO ×2 (04:38→21:28)
[2025-01-27 06:53] LABS: Bedside Glucose 112 mg/dL (74-106)
[2025-01-27 08:41] LABS: Hematocrit 22.6 % (37-47); Hemoglobin 7.5 g/dL (12.0-15.0)
[2025-01-27 10:15] VITALS: BP 119/46; PULSE 86; RESP 17; TEMP 36.4; O2SAT 95
[2025-01-27] MEDS: hydroCHLOROthiazide 12.5mg 12.5 MG PO (10:19)
[2025-01-27] MEDS: Senna/Docusate Sodium 1 Tablet PO ×2 (10:19→21:25)
[2025-01-27] MEDS: Calcium Carb/Vitamin D 1 TABLET Tablet PO ×2 (10:19→21:25)
[2025-01-27] MEDS: Aspirin 81 MG TAB.CHEW PO (10:19)
[2025-01-27] MEDS: amLODIPine 2.5 MG Tablet PO (10:19)
[2025-01-27] MEDS: Lisinopril 20 MG Tablet PO (10:20)
[2025-01-27] MEDS: Menthol/Lanolin/Calamine/Znox 113 GM Tube 1 APPLIC TOPICAL ×2 (10:20→21:24)
--- NOTE | 2025-01-27 11:20 | NURSING ---
notified dr olson HGB 7.5
--- NOTE | 2025-01-27 11:32 | CASEMGMT ---
Addendum entered by Tiffanie Broussard 01/27/25 15:50: Social Work [facility] is able to accept pt for SN/PT with start of care on Thursday 02/01. Pt currently out of room at procedure. SW will update pt when pt is available. ADIN Valencia Original Note: Social Work SW met with pt and pt's dgt Sonia and discussed discharge home. Pt and dgt agreeable to dc on Monday 01/29. Pt agreeable to [facility] PT/SN. A list of home health providers including quality and resource use data and consistent with the patient?s preferred geographic region, medical needs, and insurance network were provided from the [employer] Guide. Pt preferred providers are 1. [facility] 2. [facility]. [facility] determination of [facility]. Pt has all needed DME. Pt has a follow up appointment with [facility] on Friday for dressing changes and Pt and dgt aware they will determine dressing changes moving forward, but home health can assist with this if that is ordered. Discharge Date: 01/29 Discharge Disposition: Home with son and family support and [facility] PT/SN, pending acceptance ADIN Valencia
--- NOTE | 2025-01-27 13:00 | RAD_ITS ---
PROCEDURE: SWALLOWING FUNCTION W/VIDEO 01/27/2025 REASON FOR EXAM: DYSPHAGIA TECHNIQUE: SWALLOWING FUNCTION W/VIDEO COMPARISON: None. FINDINGS: Fluoroscopy service was provided for the speech therapist performed a modified barium swallow. Fluoroscopy time: 239 seconds Fluoroscopy dose: 92.6 mGy RAD/Swallowing Function w/Video IMPRESSION: Fluoroscopy service provided for the patient's speech therapist. Please refer to the speech therapist report for details on the study. Reading Location: [place] [address]
--- NOTE | 2025-01-27 13:09 | MDS.RN ---
Pain assessment for MDS complete.
--- NOTE | 2025-01-27 13:47 | ST.MBS ---
Modified Barium Swallow Patient Information Study Date: 01/27/25 Study Time: 13:00 Direct Billable Minutes: 120 Total Minutes procedure & reportin Diagnosis: K21.9-GERD Referring Physician: Antonio Diaz Chi Medical History: Patient was referred to Speech Therapy for evaluation of dysphagia due to reports of coughing during meals. On 01/26, the patient participated in CBSE, which resulted in a recommendation for a MBSS. The patient reported symptoms of uncontrolled reflux and a hoarse vocal quality. Although a fiberoptic endoscopic evaluation of swallowing (FEES) was discussed, the patient declined due to discomfort with nasal instrumentation. CHANGER FIXER expressed concern for possible GERD, laryngopharyngeal reflux, or esophageal dysfunction. Past Medical History (PMH):?Chronic renal failure (stage 3a), osteoporosis, peripheral vascular disease, grade I diastolic dysfunction, bilateral cataracts, transient ischemic attack (TIA), uncontrolled hypertension, syncope, sleep apnea, hyperlipidemia, mild aortic stenosis, acute upper respiratory infection (URI), hypercalcemia, acid reflux, gastrointestinal symptoms (blood in stool, diarrhea, nausea, abdominal pain), anxiety, depression, arthritis, and fatigue. Patient is a non-smoker. Current Diet Ordered: Regular / Thin Liquids Penetration-Aspiration Scale Penetration-Aspiration Scale: OBJECTIVE ASSESSMENT OF SWALLOW FUNCTION (QUANTITATIVE ? PER TRIAL): PENETRATION / ASPIRATION SCALE (PINEDA): 1 = does not enter airway 2 = enters airway/above vocal folds/ejected 3 = enters airway/above vocal folds/not ejected 4 = enters airway/contacts vocal folds/ejected 5 = enters airway/contacts vocal folds/not ejected 6 = enters airway/below vocal folds/ejected 7 = enters airway/below vocal folds/not ejected despite effort 8 = enters airway/below vocal folds/no effort VIDEOFLOROSCOPIC SCALE SCORE (PINEDA): Grade I = aspiration of material that has penetrated into the laryngeal vestibule, intact cough reflex Grade II = aspiration < 10 % of the bolus, intact cough reflex Grade III = aspiration of < 10 % of the bolus, reduced cough reflex or aspiration of > 10 % of the bolus, intact cough reflex Grade IV = aspiration of > 10 % of the bolus, reduced cough reflex Penetration-Aspiration Scale Score Thin Liquid via teaspoon: Result: 1= does not enter airway Thin Liquid via teaspoon Trial 2: Result: 1= does not enter airway Thin Liquid via small single sip: cup: Result: 2= enter airway/above vocal folds/ejected Thin Liquid via small single sip: cup Trial 2: Result: 2= enter airway/above vocal folds/ejected [place] Thick Liquid via small single sip: cup: Result: 1= does not enter airway Honey Thick Liquid via small single sip: cup: Result: 1= does not enter airway Honey Thick Liquid via small single sip: cup Trial 2: Result: 1= does not enter airway Thin Liquid via small single sip: cup Trial 3: Result: 1= does not enter airway Thin Liquid via sequential sips: cup: Result: 2= enter airway/above vocal folds/ejected Pudding: Result: 1= does not enter airway Cookie: Result: 1= does not enter airway Barium Tablet: Result: 1= does not enter airway Oral Phase Labial Seal: No Labial Escape Tongue Control During Bolus Hold: Cohesive bolus between tongue to palatal seal Bolus Preparation/Mastication: Timely and efficient chewing and mashing Bolus Transport/Lingual Motion: Delayed initiation of tongue motion Oral Residue: Trace residue lining oral structures Pharyngeal Phase Initiation of Pharyngeal Swallow: Bolus head in pyriforms Soft Palate Elevation: No bolus between soft palate and pharyngeal wall Laryngeal Elevation: Partial superior movement thyroid cart/partial apprx aryt-epig petiole Anterior Hyoid Excursion: Complete anterior movement Epiglottic Movement: Complete inversion Laryngeal Vestibule Closure at Height of Swallow: Incomplete; narrow column of air/contrast in laryngeal vestibule Pharyngeal Stripping Wave: Present - diminished Pharyngoesophageal Segment Opening: Parital distension and partial duration; parital obstruction of flow Tongue Base Retraction: Trace column of contrast between tongue base & post. pharyngeal wall Pharyngeal Residue: Trace residue within or on pharyngeal structures Esophageal Phase Esophageal Clearance: Esophageal retention w/ retrograde flow below pharyngoesophageal seg. Diagnosis/Impression Diagnosis: Pharyngoesophageal Dysphagia R13.14 Impression: The patient demonstrated adequate oral function with excellent bolus control. Mild delay was noted in the initiation of tongue movement to propel the bolus. Mastication of a cookie was adequate, with only trace oral residue observed. No signs of aspiration were noted during the study. The most significant findings were consistent with pharyngoesophageal dysphagia, with retention observed in the upper esophagus (just below the upper esophageal sphincter) and mid-esophagus. The patient reported a globus sensation and pointed to the throat in response to the retained material. A liquid wash was effective in facilitating esophageal clearance. During episodes of coughing, retained material in the upper esophagus was observed approaching the UES, indicating a high risk for reflux-related aspiration. The patient reported no history of GI evaluation or use of proton pump inhibitors (PPIs). A referral to GI is recommended for further assessment. CHANGER FIXER provided education on GERD precautions, emphasizing alternating bites and sips, maintaining an upright posture during meals and for 15?30 minutes afterward, and consuming smaller, more frequent meals if symptoms of aspiration worsen. Recommendations Diet: Regular Textures and Thin Liquids Compensatory Strategies: Alternate bites/solids and sips/liquids, Sitting upright and Remain sitting upright for 30 minutes after PO intake Recommend Repeat Modified Barium Swallow: No Need for Skilled Speech Therapy Services: No Recommended Referrals: GI Consult Education Completed: 1. Described result of evaluation., 2. Pt understands evaluation & agrees with goals and treatment plan. and 4. Family/caregivers understand evaluation & agree w/ goals & tx plan. Status Active ST Patient: Active Contact Information [facility] Speech Therapy:: Kathryn Fernandez M.A., [facility]CHANGER FIXER Speech-Language Pathologist [facility] [phone]? ?FAX [phone]? ? [address] [place] [address]? ?[place] [address]
[2025-01-27 14:20] VITALS: BP 110/51; PULSE 85; RESP 16; TEMP 36.8; O2SAT 96; BMI 24.5
[2025-01-27 14:39] VITALS: BP 119/51; PULSE 92; RESP 16; TEMP 36.9; O2SAT 98
[2025-01-27 15:39] VITALS: BP 120/52; PULSE 82; RESP 16; TEMP 36.4
[2025-01-27 16:37] VITALS: BP 131/48; RESP 16; TEMP 36.7
[2025-01-27] MEDS: Bisacodyl 5 MG Tablet 20 MG PO (17:14)
[2025-01-27] MEDS: Polyethylene Glycol 3350 BOWEL PREP PO (20:38)
[2025-01-27] MEDS: oxyCODONE 5 MG Tablet 10 MG PO (21:24)
[2025-01-27] MEDS: MELATONIN 3 MG TABLET PO (21:25)
--- NOTE | 2025-01-27 21:40 | NURSING ---
Large liquid emesis at this time, patient on clear diet, bowel prep per order. Clean glown provided. No distress observed or reported at this time. Call light in reach
[2025-01-27 21:46] LABS: Bedside Glucose 175 mg/dL (74-106)
--- NOTE | 2025-01-28 00:01 | NURSING ---
NPO at this time per order
[2025-01-28 05:46] LABS: Absolute Lymphocyte Count 1.61 X10^3/uL (0.83-4.51); Absolute Neutrophil Count 3.8 X10^3/uL (2.0-7.7); Basophil# 0.04 X10^3/uL; Basophil% 0.6 % (0-1); Eosinophil# 0.08 X10^3/uL; Eosinophils% 1.3 % (0-5); Lymphocyte # 1.61 X10^3/ul (0.83-4.51); Lymphocyte % 25.6 % (19-41); Mean Corp Hgb Conc 33.3 g/dL (32-36); Mean Corpuscular Hgb 30.4 pg (27.0-32.0); Mean Corpuscular Volume 91.2 fL (81-99); Monocyte# 0.77 X10^3/uL; Monocyte% 12.3 % (0-10); NRBC Flagged by Analyzer 0 % (0-5); Neutrophil # 3.77 X10^3/uL (2.7-7.7); Platelet Count 335 K/mm3 (150-450); RBC Distribution Width CV 14.2 % (11.6-14.6); RBC Distribution Width SD 47.1 fl (35.1-43.9); Red Blood Count 3.29 M/mm3 (4.2-5.4); White Blood Count 6.3 K/mm3 (4.4-11.0)
[2025-01-28 06:14] LABS: Anion Gap 13 (5-15); BUN 27 mg/dL (4-19); BUN/Creat Ratio 36.5 RATIO (10-20); Calcium,Total 9.1 mg/dL (7.6-11.0); Carbon Dioxide 24.2 mmol/L (21.0-32.0); Chloride 93 mmol/L (98-108); Creatinine, Serum 0.73 mg/dL (0.70-1.20); EST Glomerular Filtration Rate 82 (>60); Estimated Creatinine Clearance 46.01 ml/min (50-250); Glucose 135 mg/dL (70-99); Potassium 4.2 mmol/L (3.3-5.1); Sodium Level 130 mmol/L (133-145)
[2025-01-28 07:11] LABS: Bedside Glucose 125 mg/dL (74-106)
[2025-01-28 07:24] VITALS: BP 146/67; PULSE 98; RESP 16; TEMP 36.7; O2SAT 98
--- NOTE | 2025-01-28 07:27 | NURSING ---
Patient unable to complete bowel prep last HS, began to vomit, refused to drink any further. Consumed 500cc bowel prep as ordered. Secure backline text sent to Dr. Mcneil at this time notifying of patient inability to complete bowel prep as ordered, awaiting response.
[2025-01-28] MEDS: amLODIPine 2.5 MG Tablet PO (07:52)
[2025-01-28] MEDS: Lisinopril 20 MG Tablet PO (07:52)
[2025-01-28 10:00] VITALS: BP 117/64; PULSE 90; RESP 16; TEMP 36.7; O2SAT 97
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
[2025-01-28] MEDS: Acetaminophen 500 MG Tablet 1000 MG PO ×2 (13:50→22:06)
[2025-01-28 15:35] LABS: Bedside Glucose 151 mg/dL (74-106)
[2025-01-28] MEDS: Menthol/Lanolin/Calamine/Znox 113 GM Tube 1 APPLIC TOPICAL ×2 (15:46→22:07)
--- NOTE | 2025-01-28 17:28 | NURSING ---
Patient returned from EGD/Colonoscopy. Non-bleeding ulcer to upper GI and three bleeding lesions cauterized to lower GI. Patient aware. Dr. Mcneil approved giving aspirin after scope. Patient back to regular diet and tolerated well.
[2025-01-28 17:41] LABS: Hematocrit 29.4 % (37-47); Hemoglobin 9.9 g/dL (12.0-15.0)
[2025-01-28] MEDS: hydroCHLOROthiazide 12.5mg 12.5 MG PO (17:51)
[2025-01-28] MEDS: Aspirin 81 MG TAB.CHEW PO (17:51)
[2025-01-28] MEDS: oxyCODONE 5 MG Tablet 10 MG PO (22:05)
[2025-01-28] MEDS: Calcium Carb/Vitamin D 1 TABLET Tablet PO (22:06)
[2025-01-28] MEDS: MELATONIN 3 MG TABLET PO (22:08)
[2025-01-28 22:27] LABS: Bedside Glucose 171 mg/dL (74-106)
[2025-01-28] MEDS: Insulin Glargine-YFGN 100 UNIT/ML Pen 25 UNIT SC (22:54)
[2025-01-29 05:24] LABS: Hematocrit 27.9 % (37-47); Hemoglobin 9.4 g/dL (12.0-15.0)
[2025-01-29] MEDS: Acetaminophen 500 MG Tablet 1000 MG PO (05:56)
[2025-01-29 06:53] LABS: Bedside Glucose 100 mg/dL (74-106)
[2025-01-29 07:42] VITALS: BP 129/64; PULSE 91; RESP 18; TEMP 36.4; O2SAT 97
[2025-01-29] MEDS: hydroCHLOROthiazide 12.5mg 12.5 MG PO (07:44)
[2025-01-29] MEDS: amLODIPine 2.5 MG Tablet PO (07:44)
[2025-01-29] MEDS: Calcium Carb/Vitamin D 1 TABLET Tablet PO (07:45)
[2025-01-29] MEDS: Lisinopril 20 MG Tablet PO (07:45)
[2025-01-29] MEDS: Senna/Docusate Sodium 1 Tablet PO (07:45)
[2025-01-29] MEDS: Aspirin 81 MG TAB.CHEW PO (07:45)
[2025-01-29] MEDS: oxyCODONE 5 MG Tablet PO (07:46)
[2025-01-29] MEDS: Menthol/Lanolin/Calamine/Znox 113 GM Tube 1 APPLIC TOPICAL (07:47)
[2025-01-29 10:35] VITALS: BP 110/49; PULSE 82; RESP 16; TEMP 36.3; O2SAT 97
== END 2025-01-29 11:30 | disposition home health service (06) | DRG 949 ==
PROVIDERS: Admitting Provider Internal Medicine; PCP Internal Medicine; Referring Provider Family Medicine Geriatric Medicine; Visit Provider Internal Medicine
DX: T24.331D Burn of third degree of right lower leg, subsequent encounter (principal); K62.5 Hemorrhage of anus and rectum; D50.0 Iron deficiency anemia secondary to blood loss (chronic); E11.22 Type 2 diabetes mellitus with diabetic chronic kidney disease; E11.51 Type 2 diabetes mellitus with diabetic peripheral angiopathy without gangrene; E78.5 Hyperlipidemia, unspecified; N18.31 Chronic kidney disease, stage 3a; I12.9 Hypertensive chronic kidney disease with stage 1 through stage 4 chronic kidney disease, or unspecified chronic kidney disease; I65.23 Occlusion and stenosis of bilateral carotid arteries; Z79.4 Long term (current) use of insulin; M81.0 Age-related osteoporosis without current pathological fracture; X08.8XXD Exposure to other specified smoke, fire and flames, subsequent encounter; T24.332D Burn of third degree of left lower leg, subsequent encounter; T23.261D Burn of second degree of back of right hand, subsequent encounter; T22.211D Burn of second degree of right forearm, subsequent encounter; Z79.899 Other long term (current) drug therapy; Z94.5 Skin transplant status
CPT/HCPCS: 36415; 36430; 74230; 80048; 80061; 82274; 82962; 83036; 85014; 85018; 85025; 86850; 86900; 86901; 92526; 92610; 92611; 97110; 97116; 97161; 97166; 97530; 97535; 97802; P9016; A4216

== ENCOUNTER 2025-01-28 14:48 | Day surgery (SDC) | payer MEDICARE, SELFPAY ==
[2025-01-28] VITALS (8 sets, daily range): BP systolic 137–149; BP diastolic 60–91; PULSE 90–94; RESP 16–22; TEMP 36.4–37.1; O2SAT 94–100; BMI 24.3
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
[2025-01-28] MEDS: Lactated Ringers 1,000 ML 15 ML IV (15:15)
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
--- NOTE | 2025-01-28 16:00 | EGD_PTH ---
PATIENT: ROWAN CANAS LOC: EN U#:[id number] AGE/SX: 84/F ROOM: RE01/28/[address]: Dr. Dennis Mcneil DO : 1940 BED: DIS: 01/28/2025 SPEC #: [id number] RECD: 01/28/25 16:41 STATUS: LES REGomez #: [id number] VALERIE: 01/28/25 16:[address]: Dennis Mcneil DEPT: SURGICAL PATHOLOGY RECD BY: Ishmael Ospina ENTERED: 01/31/25 09:45 SP TYPE: EGD BIOPSY VIDA DR: Dr. Ellyn Bailey MD Tissues: A - Gastric mucous membrane Procedures: Immunohistochemical Stains Surgery Specimen Level IV HEADER OPERATION: Colonoscopy with electrohemostasis, EGD with biopsy PRE-OP DIAGNOSIS: GI bleed, anemia TISSUE SUBMITTED: A- Antral gastric ulcer MICROSCOPIC DIAGNOSIS A. Stomach, antrum, ulcer, biopsy: - Chronic gastritis with ulceration and reactive/reparative features. - IHC negative for H pylori organisms. MICROSCOPIC DESCRIPTION Slides are reviewed. All matched controls reacted appropriately. These tests were developed and their performance characteristics determined by [facility]. They may not have been cleared or approved by the U.S. Food and Drug Administration. The FDA has determined that such clearance or approval is not necessary.? The above immunohistochemical/dualISH?markers are reviewed by the Pathologist. GROSS DESCRIPTION A. Received in formalin labeled with the patient's name and date of . Designated as antral gastric ulcer biopsy are 2 stallings tissue fragments, 0.1 cm and 0.9 cm. Entirely submitted in 1 cassette. Smallest fragment may not survive processing. NM 01/31/2025 CPT:99514,84048
--- NOTE | 2025-01-28 16:34 | OP.EGD_ITS ---
Patient Name: Petra Del Valle Procedure Date: 01/28/2025 3:49 PM Date of : 1940 Age: 84 Procedure: Upper GI endoscopy Indications: Iron deficiency anemia, Melena Providers: Dennis Mcneil DO Medicines: Monitored Anesthesia Care Patient Profile: This is an 84 year old female. Refer to note in patient chart for documentation of history and physical. Patient has symptoms. Complications: No immediate complications. Procedure: Pre-Anesthesia Assessment: - Prior to the procedure, a History and Physical was performed, and patient medications and allergies were reviewed. The patient is competent. The risks and benefits of the procedure and the sedation options and risks were discussed with the patient. All questions were answered and informed consent was obtained. Patient identification and proposed procedure were verified by the physician in the pre-procedure area. Mental Status Examination: alert and oriented. Airway Examination: normal oropharyngeal airway and neck mobility. Respiratory Examination: clear to auscultation. CV Examination: normal. Prophylactic Antibiotics: The patient does not require prophylactic antibiotics. Prior Anticoagulants: The patient has taken no anticoagulant or antiplatelet agents except for NSAID medication. ASA Grade Assessment: II - A patient with mild systemic disease. After reviewing the risks and benefits, the patient was deemed in satisfactory condition to undergo the procedure. The anesthesia plan was to use monitored anesthesia care (MAC). Immediately prior to administration of medications, the patient was re-assessed for adequacy to receive sedatives. The heart rate, respiratory rate, oxygen saturations, blood pressure, adequacy of pulmonary ventilation, and response to care were monitored throughout the procedure. The physical status of the patient was re-assessed after the procedure. After obtaining informed consent, the endoscope was passed under direct vision. Throughout the procedure, the patient's blood pressure, pulse, and oxygen saturations were monitored continuously. The Colonoscope was introduced through the mouth, and advanced to the fourth part of the duodenum. Small bowel enteroscopy was deemed necessary. The upper GI endoscopy was accomplished with ease. The patient tolerated the procedure well. Scope In: 4:03:24 PM Scope Out: 4:06:12 PM Total Procedure Duration Time 0 hours 2 minutes 48 seconds Findings: The examined esophagus was normal. One non-bleeding cratered gastric ulcer with no stigmata of bleeding was found in the gastric body. The lesion was 6 mm in largest dimension. Biopsies were taken with a cold forceps for histology. Biopsies were taken with a cold forceps for Helicobacter pylori testing. The examined duodenum was normal. Impression: - Normal esophagus. - Non-bleeding gastric ulcer with no stigmata of bleeding. Biopsied. - Normal examined duodenum. Recommendation: - Await pathology results. - Continue present medications. Procedure Code(s): --- Professional --- 74438, Small intestinal endoscopy, enteroscopy beyond second portion of duodenum, not including ileum; with biopsy, single or multiple CPT copyright 2021 [employer]. All rights reserved. The codes documented in this report are preliminary and upon farm crew member review may be revised to meet current compliance requirements. Dennis Mcneil DO 01/28/2025 4:34:04 PM This report has been signed electronically. Number of Addenda: 0 Note Initiated On: 01/28/2025 3:49 PM
--- NOTE | 2025-01-28 16:34 | OP.CCLET_ITS ---
01/28/2025 Ellyn Bailey [facility] [address] [place] [address] Re : Upper GI endoscopy procedure for Petra Ivon Dear Dr. Bailey This procedure was performed on Tuesday, January 28, 2025. My impressions and recommendations are as follows: Impressions : - Normal esophagus. - Non-bleeding gastric ulcer with no stigmata of bleeding. Biopsied. - Normal examined duodenum. Recommendations : - Await pathology results. - Continue present medications. My findings are described in the full procedure note, which is enclosed. If I can be of further assistance, please feel free to contact me at . Sincerely, Dennis Mcneil, 01/28/2025 4:34:04 PM This report has been signed electronically.
--- NOTE | 2025-01-28 16:35 | PCM.POST.ANE ---
Anesthesia: Postop Eval I Current Vital Signs Temperature: 98.5 F Pulse Rate: 94 Blood Pressure: 140/91 Respiratory Rate: 22 Pulse Ox: 94 Oxygen Delivery Method: Nasal Cannula Oxygen Flow Rate (L/min): 2 Assessment Airway patent: Yes Spontaneous unlabored respirations: Yes Mental status: Awake and Calm nausea: No Vomiting: No Anesthesia Complication: No Fluid Hydration Crystalloid volume administer (ml): 250 Total IV fluid infused: 250 Progress Note Anesthesia document: Postop Eval 1 completed: Yes
--- NOTE | 2025-01-28 16:38 | OP.CCLET_ITS ---
01/28/2025 Ellyn Bailey [facility] [address] [place] [address] Re : Colonoscopy procedure for Petra Del Valle Dear Dr. Bailey This procedure was performed on Tuesday, January 28, 2025. My impressions and recommendations are as follows: Impressions : - Preparation of the colon was fair. - Diverticulosis in the recto-sigmoid colon, in the sigmoid colon and in the descending colon. - Three bleeding colonic angiodysplastic lesions. Treated with a heater probe. - Stool in the recto-sigmoid colon, in the sigmoid colon, at the hepatic flexure and in the cecum. - No specimens collected. Recommendations : - Discharge patient to home. - Resume previous diet. - Continue present medications. - No repeat colonoscopy due to age. My findings are described in the full procedure note, which is enclosed. If I can be of further assistance, please feel free to contact me at . Sincerely, Dennis Mcneil, 01/28/2025 4:38:06 PM This report has been signed electronically.
--- NOTE | 2025-01-28 16:38 | OP.COLON_ITS ---
Patient Name: Petra Del Valle Procedure Date: 01/28/2025 4:06 PM Date of : 1940 Age: 84 Procedure: Colonoscopy Indications: Melena Providers: Dennis Mcneil DO Medicines: Monitored Anesthesia Care Patient Profile: This is an 84 year old female. Refer to note in patient chart for documentation of history and physical. Patient has symptoms. Last Colonoscopy: date unknown. Unable to locate last colonoscopy report. Complications: No immediate complications. Procedure: Pre-Anesthesia Assessment: - Prior to the procedure, a History and Physical was performed, and patient medications and allergies were reviewed. The patient is competent. The risks and benefits of the procedure and the sedation options and risks were discussed with the patient. All questions were answered and informed consent was obtained. Patient identification and proposed procedure were verified by the physician in the pre-procedure area. Mental Status Examination: alert and oriented. Airway Examination: normal oropharyngeal airway and neck mobility. Respiratory Examination: clear to auscultation. CV Examination: normal. Prophylactic Antibiotics: The patient does not require prophylactic antibiotics. Prior Anticoagulants: The patient has taken no anticoagulant or antiplatelet agents except for NSAID medication. ASA Grade Assessment: II - A patient with mild systemic disease. After reviewing the risks and benefits, the patient was deemed in satisfactory condition to undergo the procedure. The anesthesia plan was to use monitored anesthesia care (MAC). Immediately prior to administration of medications, the patient was re-assessed for adequacy to receive sedatives. The heart rate, respiratory rate, oxygen saturations, blood pressure, adequacy of pulmonary ventilation, and response to care were monitored throughout the procedure. The physical status of the patient was re-assessed after the procedure. After I obtained informed consent, the scope was passed under direct vision. Throughout the procedure, the patient's blood pressure, pulse, and oxygen saturations were monitored continuously. The Colonoscope was introduced through the anus and advanced to the cecum, identified by appendiceal orifice and ileocecal valve. The colonoscopy was performed without difficulty. The patient tolerated the procedure well. The quality of the bowel preparation was fair. The ileocecal valve, appendiceal orifice, and rectum were photographed. Scope In: 4:09:44 PM Scope Withdrawal Time 0 hours 6 minutes 17 seconds Scope Out: 4:20:40 PM Total Procedure Duration Time 0 hours 10 minutes 56 seconds Findings: The perianal and digital rectal examinations were normal. A few small and large-mouthed diverticula were found in the recto-sigmoid colon, sigmoid colon and descending colon. Three large localized angiodysplastic lesions with bleeding were found at the hepatic flexure, in the ascending colon and in the cecum. Coagulation for hemostasis using heater probe was successful. Estimated blood loss was minimal. Stool was found in the recto-sigmoid colon, in the sigmoid colon, at the hepatic flexure and in the cecum. Impression: - Preparation of the colon was fair. - Diverticulosis in the recto-sigmoid colon, in the sigmoid colon and in the descending colon. - Three bleeding colonic angiodysplastic lesions. Treated with a heater probe. - Stool in the recto-sigmoid colon, in the sigmoid colon, at the hepatic flexure and in the cecum. - No specimens collected. Recommendation: - Discharge patient to home. - Resume previous diet. - Continue present medications. - No repeat colonoscopy due to age. Dennis Mcneil, 01/28/2025 4:38:06 PM This report has been signed electronically. Number of Addenda: 0 Note Initiated On: 01/28/2025 4:06 PM
--- NOTE | 2025-01-28 17:02 | POSTOPAN2_ITS ---
Anesthesia Postop Eval I Sum Postop Eval Completion status Anesthesia document: Postop Eval 1 completed: Yes Anesthesia Postop Eval I Summary Anesthesia Postop Eval I Summary: Anesthesia Postop Eval I: Assessment Summary Airway patent Yes 01/28/25 16:36 [email or web address] Spontaneous unlabored Yes 01/28/25 16:36 [email or web address] respirations Mental status Awake,Calm 01/28/25 16:36 [email or web address] nausea No 01/28/25 16:36 [email or web address] Vomiting No 01/28/25 16:36 [email or web address] Anesthesia Postop Eval I: Fluid Summary Crystalloid volume administer 250 01/28/25 16:36 [email or web address] (ml) Colloids volume administered ( ml) Blood Product volume administered (ml) Total IV fluid infused 250 01/28/25 16:36 [email or web address] Anesthesia Postop Eval I: Summary Notes Anesthesia Complication No 01/28/25 16:36 [email or web address] Anesthesia Complication Comment: Post-operative progress note Anesthesia: Postop Eval II Evaluation Mental status: Awake and Calm Pain Level: 0 nausea: No Vomiting: No Complications Anesthesia Complication: No
--- NOTE | 2025-01-28 17:02 | PCM.POSTANE2 ---
Anesthesia Postop Eval I Sum Postop Eval Completion status Anesthesia document: Postop Eval 1 completed: Yes Anesthesia Postop Eval I Summary Anesthesia Postop Eval I Summary: Anesthesia Postop Eval I: Assessment Summary Airway patent Yes 01/28/25 16:36 [email or web address] Spontaneous unlabored Yes 01/28/25 16:36 [email or web address] [email or web address] respirations Mental status Awake,Calm 01/28/25 16:36 [email or web address] [email or web address] nausea No 01/28/25 16:36 BAKING POWDER [email or web address] Vomiting No 01/28/25 16:36 [email or web address] Anesthesia Postop Eval I: Fluid Summary Crystalloid volume administer 250 01/28/25 16:36 [email or web address] [email or web address] (ml) Colloids volume administered ( ml) Blood Product volume administered (ml) Total IV fluid infused 250 01/28/25 16:36 BAKING [email or web address] [email or web address] Anesthesia Postop Eval I: Summary Notes Anesthesia Complication No 01/28/25 16:36 [email or web address] Anesthesia Complication Comment: Post-operative progress note Anesthesia: Postop Eval II Evaluation Mental status: Awake and Calm Pain Level: 0 nausea: No Vomiting: No Complications Anesthesia Complication: No
== END 2025-01-28 16:59 | disposition home or self-care (01) ==
LOC: EN 14:48 → AC 14:49
PROVIDERS: PCP Internal Medicine; Referring Provider Internal Medicine; Visit Provider Internal Medicine Gastroenterology
PROC: 0DJD8ZZ Inspection of Lower Intestinal Tract, Via Natural or Artificial Opening Endoscopic (ICD-10-PCS; CPT 45378; principal; 2025-01-28 15:55)
DX: K25.9 Gastric ulcer, unspecified as acute or chronic, without hemorrhage or perforation (principal); E11.22 Type 2 diabetes mellitus with diabetic chronic kidney disease; Z79.4 Long term (current) use of insulin; N18.31 Chronic kidney disease, stage 3a; K55.21 Angiodysplasia of colon with hemorrhage; K57.30 Diverticulosis of large intestine without perforation or abscess without bleeding; E78.5 Hyperlipidemia, unspecified; M81.0 Age-related osteoporosis without current pathological fracture; K21.9 Gastro-esophageal reflux disease without esophagitis; I12.9 Hypertensive chronic kidney disease with stage 1 through stage 4 chronic kidney disease, or unspecified chronic kidney disease; Z79.82 Long term (current) use of aspirin; Z79.899 Other long term (current) drug therapy; D50.9 Iron deficiency anemia, unspecified; K29.50 Unspecified chronic gastritis without bleeding
CPT/HCPCS: 45382; 43239; 88305; 88342; C1889